=== PATIENT | female | born 1940 | race Caucasian/White ===

== ENCOUNTER → 2016-03-29 | Outpatient (CLI) | payer OTHER, MEDICARE ==
--- NOTE | 2016-03-29 12:04 | US ---
Ultrasound Venous Duplex/Doppler left Leg History: Pain and swelling. C 56.2, malignant ovary neoplasm, C56.1, acute embolism, C77.3 Findings: Ultrasound venous duplex and Doppler imaging of the common femoral vein, femoral vein, pop liteal vein, calf veins, greater saphenous vein origin, and contralateral common femoral vein demonst rates positive intraluminal thrombus involving the left peroneal and posterior tibial veins of the le ft calf. No additional thrombus in the popliteal, femoral, or common femoral veins. Impression: Positive deep venous thrombosis in the left calf peroneal and posterior tibial veins. Findings and recommendations discussed with Dr. Naheed Mattson's medical office receptionist at 1158 hour, to day. A Document Only message has been documented for Naheed Dominguez MD in the [employer] [facility] ult system on 03/29/2016 11:58, Message ID [id number].
== END ==
LOC: FIMAGING 10:59
PROVIDERS: ATTEND Internal Medicine Hematology & Oncology
DX: I82.4Z2 Acute embolism and thrombosis of unspecified deep veins of left distal lower extremity (principal); C56.1 Malignant neoplasm of right ovary; C56.2 Malignant neoplasm of left ovary; C77.3 Secondary and unspecified malignant neoplasm of axilla and upper limb lymph nodes

== ENCOUNTER → 2016-04-05 | Outpatient (CLI) | payer OTHER, MEDICARE ==
--- NOTE | 2016-04-05 16:34 | US ---
Bilateral Lower Extremity Deep Venous Duplex Doppler Ultrasound History: Bilateral lower extremity leg pain and swelling. Technique: Bilateral lower extremity deep venous system and veins of the proximal calf were interroga melissa with grayscale, color, and spectral Doppler imaging. Comparison to previous venous ultrasound on the left on March 29, 2016 and on the right from 2015. Findings: Right lower extremity: The right common femoral, and proximal to mid femoral veins normally compress on grayscale imaging. However, there is evidence of intraluminal thrombus with lack of compression in volving the distal right femoral vein extending into the right popliteal vein. The veins of the proxi mal calf have grossly normal flow. The visualized greater saphenous vein compresses normally without thrombus. Moderate subcutaneous edema is present within the right calf. Left lower extremity: The left common femoral vein, femoral vein, and popliteal vein compress normall y on grayscale imaging. There is lack of compression of the proximal left posterior tibial vein. Ther e is also suspicion of thrombus in the left peroneal veins. The greater saphenous vein is patent. No significant edema is seen in the soft tissues. Impression: 1. Persistent thrombus within the distal right femoral vein extending into the right popliteal vein w ith probable persistent involvement of the proximal calf veins. 2. Persistent thrombus suspected in proximal calf veins similar to the prior study.
== END ==
LOC: FIMAGING 15:29
PROVIDERS: ATTEND Internal Medicine Hematology & Oncology
DX: I82.431 Acute embolism and thrombosis of right popliteal vein (principal); M79.661 Pain in right lower leg; M79.662 Pain in left lower leg; Z86.718 Personal history of other venous thrombosis and embolism

== ENCOUNTER 2016-06-24 19:35 | Inpatient (IN) | payer OTHER ==
--- NOTE | 2016-06-24 19:53 | EDPHY ---
H & P Time Seen by Provider: 06/24/16 19:52 HPI/ROS: CHIEF COMPLAINT: Fever and lethargy HISTORY OF PRESENT ILLNESS: Patient has metastatic ovarian cancer and got her last chemotherapy on June 06. She has had decreased oral intake and this had IV fluids 3 times in the past 3 weeks including 2 L yesterday. She is brought in today because of increasing global weakness. She has trouble getting up and getting around. It is associated today with a high temperature. Not focal and not associated with headache or new weakness or numbness in extremities. REVIEW OF SYSTEMS: Eye: no change in vision ENT: no sore throat, mild left earache Cardiac: no chest pain or syncope Pulmonary: no cough or SOB Abdomen: no vomiting, diarrhea, abdominal pain Musculoskeletal: Pain in the left breast for which she takes pain medication. Skin: no rash Neuro: no headache Constitutional: Fever : no urinary symptoms A comprehensive 10 point review of systems is otherwise negative aside from elements mentioned in the history of present illness. PAST MEDICAL HISTORY: Includes metastatic ovarian cancer, "blood clot" per daughters, anemia Social history: Here with family including multiple daughters General Appearance: Alert and conversant, cooperative. Eyes: No scleral icterus. ENT, Mouth: Normal mucous membranes. Normal tympanic membranes. Red indurated lesion on external right ear which the patient says is not new. Respiratory: Normal respiratory effort, breath sounds equal, lungs are clear to auscultation. Cardiovascular: Regular rate and rhythm. Gastrointestinal: Abdomen is soft and non tender. Neurological: Alert and oriented x3. Normally conversant. Face symmetric, normal movement and sensation in all extremities. Skin: Patient has erythematous area over the left breast the 1 cm open wound inferiorly but no pus draining from the wound, no lymphangitis, does not appear warmer to the touch than the surrounding skin. Musculoskeletal: No peripheral edema and no joint swelling. Psychiatric: Not agitated. Emergency Department course/MDM: The patient presents with temperature 39.5degrees and chills in a patient who was just had chemotherapy recently. Plan for sepsis screening the, chest x-ray and urinalysis and blood cultures. 2044: Results discussed with patient and family. IV fluid bolus 30 mL/kilos and broad-spectrum antibiotics to include cefepime [address] Wang and vancomycin 1 g after discussion with Dr. Brown. Platelets low. 2049: EKG noted with inferior Q-waves, sinus rhythm, troponin added. 2100: Flu noted is negative, lactate not repeated since 1st one is less than 2. 2124: Not hypotensive after fluid bolus, cefepime infusing, does not have evidence of septic shock. Smoking Status: Never smoked Constitutional: Initial Vital Signs Temperature (C) 39.5 C H 06/24/16 19:38 Heart Rate 132 H 06/24/16 19:38 Respiratory Rate 18 06/24/16 19:38 Blood Pressure 115/63 06/24/16 19:38 O2 Sat (%) 94 06/24/16 19:38 O2 Delivery Mode Room Air Allergies/Adverse Reactions: No Known Allergies Allergy (Unverified 07/18/12 18:17) Medical Decision Making - Diagnostics EKG Interpretation: 12-lead EKG interpreted by me; official reading is in trace master. My interpretation is sinus rhythm with PVC, inferior Q-waves noted. Imaging: Imaging Impressions Chest X-Ray 06/24/16 20:06 Impression: 1. Small right pleural effusion, with associated atelectasis without definite evidence of pneumonia. 2. Increased peribronchial thickening, which could be related to bronchitis/ airways disease or mild fluid overload. 3. Mild left basilar atelectasis, with a probable trace effusion. Chest x-ray viewed independently with Jenna at 8:33 p.m.. Personal interpretation is no pneumonia. Differential Diagnosis: Differential considered including but not limited to meningitis, pneumonia, sepsis, UTI, cellulitis. Consult/Admit Bed Type: [facility] 2037, [facility] 2043 Critical Care Time: Critical care time spent by me, Dr. Erickson, exclusively with the care of this patient was 35 minutes, exclusive of PA or BUSINESS AND SERVICES INSTRUCTOR time and exclusive of separate procedures. The organ system at risk was infectious and I ordered IV fluids, antipyretics, multiple antibiotics, consultation with hospitalist and oncologist to stabilize the patient and prevent worsening of the patient's condition. - Data Points Laboratory Results: Laboratory Results 06/24/16 20:00 06/24/16 20:00 06/24/16 06/24/16 06/24/16 20:25 20:00 20:00 WBC RBC Hgb Hct MCV MCH MCHC RDW Plt Count MPV Neut % (Auto) Lymph % (Auto) [place] % (Auto) Eos % (Auto) Baso % (Auto) Nucleat RBC Rel Count Absolute Neuts (auto) Absolute Lymphs (auto) Absolute Monos (auto) Absolute Eos (auto) Absolute Basos (auto) Absolute Nucleated RBC Immature Gran % Seg Neutrophils % Band Neutrophils % Lymphocytes % Monocytes % Eosinophils % Basophils % Immature Gran # Absolute Seg Neuts Absolute Band Neuts Absolute Lymphocytes Absolute Monocytes Absolute Eosinophils Absolute Basophils Platelet Estimate Microcytic Cells Smear Review By PT INR APTT VBG Lactic Acid Sodium 134 mEq/L mEq/L (134-144) Potassium 3.7 mEq/L mEq/L (3.5-5.2) Chloride 106 mEq/L mEq/L (97-110) Carbon Dioxide 22 mEq/l mEq/l (22-31) Anion Gap 6 mEq/L L mEq/L (8-16) BUN 28 mg/dL H mg/dL (7-23) Creatinine 0.6 mg/dL mg/dL (0.6-1.0) Estimated GFR > 60 Glucose 86 mg/dL mg/dL (70-100) Calcium 8.1 mg/dL L mg/dL (8.5-10.4) Total Bilirubin 1.6 mg/dL H mg/dL (0.1-1.4) Troponin I < 0.012 ng/mL ng/mL (0-0.034) Influenza Typ A,B (DFA) NEGATIVE FOR FLU (NEGATIVE) 06/24/16 06/24/16 06/24/16 20:00 20:00 20:00 WBC 0.68 10^3/uL L* 10^3/uL (3.80-9.50) RBC 2.95 10^6/uL L 10^6/uL (4.18-5.33) Hgb 9.8 g/dL L g/dL (12.6-16.3) Hct 28.5 % L % (38.0-47.0) MCV 96.6 fL fL (81.5-99.8) MCH 33.2 pg pg (27.9-34.1) MCHC 34.4 g/dL g/dL (32.4-36.7) RDW 18.4 % H % (11.5-15.2) Plt Count 68 10^3/uL L 10^3/uL (150-400) MPV 11.7 fL fL (8.7-11.7) Neut % (Auto) Not Reported Lymph % (Auto) Not Reported [place] % (Auto) Not Reported Eos % (Auto) Not Reported Baso % (Auto) Not Reported Nucleat RBC Rel Count 0.0 % % (0.0-0.2) Absolute Neuts (auto) Not Reported Absolute Lymphs (auto) Not Reported Absolute Monos (auto) Not Reported Absolute Eos (auto) Not Reported Absolute Basos (auto) Not Reported Absolute Nucleated RBC 0.00 10^3/uL 10^3/uL (0-0.01) Immature Gran % Not Reported Seg Neutrophils % 62 % % Band Neutrophils % 10 % % Lymphocytes % 18 % % Monocytes % 6 % % Eosinophils % 2 % % Basophils % 2 % % Immature Gran # Not Reported Absolute Seg Neuts 0.42 10^/uL L 10^/uL (1.70-6.50) Absolute Band Neuts 0.07 10^3/uL 10^3/uL (0.00-0.70) Absolute Lymphocytes 0.12 10^3/uL L 10^3/uL (1.00-3.00) Absolute Monocytes 0.04 10^3/uL L 10^3/uL (0.30-0.80) Absolute Eosinophils 0.01 10^3/uL L 10^3/uL (0.03-0.40) Absolute Basophils 0.01 10^3/uL L 10^3/uL (0.02-0.10) Platelet Estimate DECREASED L (ADEQ) Microcytic Cells 1+ H Smear Review By Pending PT 14.3 SEC SEC (12.0-15.0) INR 1.12 (0.83-1.16) APTT 28.6 SEC SEC (23.0-38.0) VBG Lactic Acid 1.3 mmol/L mmol/L (0.7-2.1) Sodium Potassium Chloride Carbon Dioxide Anion Gap BUN Creatinine Estimated GFR Glucose Calcium Total Bilirubin Troponin I Influenza Typ A,B (DFA) Medications Given: Discontinued Medications Acetaminophen (Tylenol) 350 mg PO EDNOW ONE Stop: 06/24/16 20:20 Last Admin: 06/24/16 20:24 Dose: 350 mg Sodium Chloride (Ns) 1,000 mls @ 0 mls/hr IV ONCE ONE PRN Reason: Wide Open Stop: 06/24/16 20:22 Last Admin: 06/24/16 20:05 Dose: 1,000 mls Cefepime HCl 2 gm/ Dextrose 100 mls @ 200 mls/hr IV EDNOW ONE PRN Reason: Protocol Stop: 06/24/16 21:13 Last Admin: 06/24/16 21:17 Dose: 100 mls Sodium Chloride (Ns) 1,600 mls @ 3,200 mls/hr 30 ml/kg infuse over 30 min ( 1600 ml) IV EDNOW ONE Stop: 06/24/16 21:13 Last Admin: 06/24/16 21:18 Dose: 1,600 mls Departure - Departure Disposition: [facility] Inpatient Acute Clinical Impression: Fever and neutropenia Condition: Serious
[2016-06-24] MEDS ORDERED: ACETAMINOPHEN 500 MG TAB PO ONE (20:19)
[2016-06-24] MEDS ORDERED: NS 1,000 ML IV ONE (20:21)
[2016-06-24] MEDS ORDERED: ACETAMINOPHEN 325 MG TAB ONE (20:21)
[2016-06-24 20:24] LABS: ADD DIFF? YES; ADD MORPH? NO; ATYPICAL LYMPHOCYTE FLAG 0 (0-99); FRAGMENT RBC FLAG 20 (0-99); HEMATOCRIT 28.5 % (38.0-47.0); HEMOGLOBIN 9.8 g/dL (12.6-16.3); LEFT SHIFT FLG 90 (0-99); LIPEMIA HEMOLYSIS FLAG 90 (0-99); MEAN CELL HEMOGLOBIN 33.2 pg (27.9-34.1); MEAN CELL HEMOGLOBIN CONCENTR. 34.4 g/dL (32.4-36.7); MEAN CELL VOLUME 96.6 fL (81.5-99.8); MEAN PLATELET VOLUME 11.7 fL (8.7-11.7); PLATELET CLUMPS FLAG 20 (0-99); PLATELET COUNT 68 10^3/uL (150-400); RED BLOOD CELL COUNT 2.95 10^6/uL (4.18-5.33); RED CELL DISTRIBUTION WIDTH 18.4 % (11.5-15.2)
[2016-06-24 20:29] LABS: ADD SCAN? NO
[2016-06-24 20:31] LABS: INR 1.12 (0.83-1.16); PROTIME(PATIENT) 14.3 SEC (12.0-15.0)
[2016-06-24 20:32] LABS: APTT 28.6 SEC (23.0-38.0)
[2016-06-24 20:41] LABS: ANION GAP 6 mEq/L (8-16); BILIRUBIN,TOTAL 1.6 mg/dL (0.1-1.4); CALCIUM 8.1 mg/dL (8.5-10.4); CARBON DIOXIDE 22 mEq/l (22-31); CHLORIDE 106 mEq/L (97-110); CREATININE 0.6 mg/dL (0.6-1.0); GLOMERULAR FILTRATION RATE > 60; GLUCOSE 86 mg/dL (70-100); POTASSIUM 3.7 mEq/L (3.5-5.2); SODIUM 134 mEq/L (134-144)
[2016-06-24] MEDS ORDERED: NS 1,600 ML IV ONE (20:44)
[2016-06-24] MEDS ORDERED: CEFEPIME HCL 2 GM in D5W 100 ML IV ONE (20:44)
[2016-06-24] MEDS ORDERED: VANCOMYCIN HCL/NORMAL SALINE 250 ML IV ONE (20:45)
--- NOTE | 2016-06-24 20:49 | CPEKG ---
Heart Rate: 93 RR Interval: 645 P-R Interval: 128 QRSD Interval: 86 QT Interval: 388 QTC Interval: 483 P [place]: 27 QRS [place]: -40 T Wave [place]: 102 EKG Severity - ABNORMAL ECG - EKG Impression: SINUS RHYTHM EKG Impression: VENTRICULAR PREMATURE COMPLEX EKG Impression: INFERIOR INFARCT, OLD EKG Impression: LATERAL LEADS ARE ALSO INVOLVED Electronically Signed By: Marin Erickson 24-Jun-2016 20:49:55
[2016-06-24 21:18] LABS: MICROCYTES 1+; PLATELET ESTIMATE DECREASED (ADEQ)
[2016-06-24] MEDS ORDERED: ONDANSETRON 4 MG/2 ML VIAL IVP PRN (22:30)
[2016-06-24] MEDS ORDERED: ONDANSETRON DISINTEGRATING 4 MG TAB PO PRN (22:30)
[2016-06-24 23:09] LABS: ALBUMIN 2.7 g/dL (3.5-5.0); BILIRUBIN,TOTAL 1.7 mg/dL (0.1-1.4); BILIRUBIN-CONJUGATED 0.8 mg/dL (0.0-0.5); BILIRUBIN-UNCONJUGATED 0.9 mg/dL (0.0-1.1); TOTAL PROTEIN 5.2 g/dL (6.3-8.2)
[2016-06-24] MEDS: GABAPENTIN 300 MG CAP PO SCH (23:35)
[2016-06-24] MEDS: MIRTAZAPINE 15 MG TAB PO SCH (23:35)
[2016-06-24] MEDS: WARFARIN SODIUM 2.5 MG TAB PO SCH (23:36)
--- NOTE | 2016-06-24 23:44 | PDGENHP ---
History and Physical - Chief Complaint generalized weakness - History of Present Illness Patient is a 75 year old female with metastatic ovarian cancer (currently undergoing chemo, last session on 06/06), history DVT on Coumadin who presents to the ED with complaint of generalized weakness. Patient states for the past 3 or 4 days she has felt decreased appetite, decreased oral intake and generalized fatigue. She denies any localizing symptoms, denies headache, dizziness, chest pain, cough, congestion, and nausea, vomiting, abdominal pain or diarrhea. She does have a left breast skin lesion / ulceration that has been unchanged, is not significantly more painful or erythematous than baseline. She was initiated on nystatin swish and swallow for oral candidiasis about 1 week ago, but denies any other new medications or recent antibiotic use. She has received IV fluid hydration in the outpatient setting due to On arrival to the ED, patient was noted to be significantly febrile (39.5C) and tachycardic, but with stable BP and oxygenation. Labs revealed neutropenia. CXR did not show obvious infection. Patient was cultured, initiated on broad spectrum antibiotics and admitted to the hospitalist service for further management. History Information - Allergies/Home Medication List Allergies/Adverse Reactions: No Known Allergies Allergy (Unverified 07/18/12 18:17) Home Medications: Gabapentin [Neurontin 300 MG (*)] 600 mg PO DAILY 06/24/16 [Last Taken 06/24/16] Gabapentin [Neurontin 300 MG (*)] 900 mg PO HS 06/24/16 [Last Taken 06/23/16] Hydrocodone/Acetaminophen [Lortab 5-325 mg Tablet] 1 each PO Q4 PRN 06/24/16 [ Last Taken 06/23/16] MIRTAZAPINE [Remeron 7.5 mg] 7.5 mg PO HS 06/24/16 [Last Taken 06/23/16] Mupirocin Calcium [Mupirocin] 1 kerry TP DAILY 06/24/16 [Last Taken Unknown] Nystatin Susp [Mycostatin Oral Liquid] 5 ml PO BID 06/24/16 [Last Taken 14:00] Warfarin Sodium [Coumadin 2.5MG (*)] 1.25 mg PO MWF@209906/24/16 [Last Taken ] Warfarin Sodium [Coumadin 2.5MG (*)] 2.5 mg PO SUTUTHSA@06/24/17 [Last Taken 06/22/16] I have personally reviewed and updated: family history, medical history, social history, surgical history - Past Medical History Additional medical history: recurrent ovarian cancer with L breast met - Surgical History Additional surgical history: XAVI with BSO. Appendectomy - Family History Positive for: cancer (in sisters) - Social History Smoking Status: Never smoked Alcohol Use: None Drug Use: None Additional social history: Patient lives alone, is independent in ADLs. Review of Systems ROS: 10pt was reviewed & negative except for what was stated in HPI & below Physical Exam Temp Pulse Resp BP Pulse Ox 37.2 C 87 16 108/50 L 90 L 06/24/16 21:50 06/24/16 21:50 06/24/16 21:50 06/24/16 21:50 06/24/16 21:50 Constitutional: not in pain, chronically ill appearing Eyes: PERRL, anicteric sclera, EOMI Ears, Nose, Mouth, Throat: hearing normal, ears appear normal, oral thrush, dry mucous membranes Cardiovascular: regular rate and rhythym, no murmur, rub, or gallop, edema (RLE) , No JVD Peripheral Pulses: 2+: dorsalis-pedis (R), dorsalis-pedis (L) Respiratory: no respiratory distress, no rales or rhonchi, clear to auscultation Gastrointestinal: normoactive bowel sounds, soft, non-tender abdomen, no palpable masses, No guarding, No rebound, No distension Genitourinary: no bladder fullness, no bladder tenderness Skin: warm, normal color, no fluctuance, erythema (along L chest wall), other ( Mediport in R chest wall, nonerythematous), No mottled Musculoskeletal: full muscle strength, no muscle tenderness, normal joint ROM, no joint effusions Neurologic: AAOx3, sensation intact bilaterally, CN II-XII Intact, No weakness, No numbness, No facial droop Psychiatric: interacting appropriately, not anxious, not encephalopathic, thought process linear Lab Data & Imaging Review 06/24/16 20:00 06/24/16 20:00 WBC 0.68 10^3/uL (3.80-9.50) L* 06/24/16 20:00 RBC 2.95 10^6/uL (4.18-5.33) L 06/24/16 20:00 Hgb 9.8 g/dL (12.6-16.3) L 06/24/16 20:00 Hct 28.5 % (38.0-47.0) L 06/24/16 20:00 MCV 96.6 fL (81.5-99.8) 06/24/16 20:00 MCH 33.2 pg (27.9-34.1) 06/24/16 20:00 MCHC 34.4 g/dL (32.4-36.7) 06/24/16 20:00 RDW 18.4 % (11.5-15.2) H 06/24/16 20:00 Plt Count 68 10^3/uL (150-400) L 06/24/16 20:00 MPV 11.7 fL (8.7-11.7) 06/24/16 20:00 Neut % (Auto) Not Reported 06/24/16 20:00 Lymph % (Auto) Not Reported 06/24/16 20:00 [place] % (Auto) Not Reported 06/24/16 20:00 Eos % (Auto) Not Reported 06/24/16 20:00 Baso % (Auto) Not Reported 06/24/16 20:00 Nucleat RBC Rel Count 0.0 % (0.0-0.2) 06/24/16 20:00 Absolute Neuts (auto) Not Reported 06/24/16 20:00 Absolute Lymphs (auto) Not Reported 06/24/16 20:00 Absolute Monos (auto) Not Reported 06/24/16 20:00 Absolute Eos (auto) Not Reported 06/24/16 20:00 Absolute Basos (auto) Not Reported 06/24/16 20:00 Absolute Nucleated RBC 0.00 10^3/uL (0-0.01) 06/24/16 20:00 Immature Gran % Not Reported 06/24/16 20:00 Seg Neutrophils % 62 % 06/24/16 20:00 Band Neutrophils % 10 % 06/24/16 20:00 Lymphocytes % 18 % 06/24/16 20:00 Monocytes % 6 % 06/24/16 20:00 Eosinophils % 2 % 06/24/16 20:00 Basophils % 2 % 06/24/16 20:00 Immature Gran # Not Reported 06/24/16 20:00 Absolute Seg Neuts 0.42 10^/uL (1.70-6.50) L 06/24/16 20:00 Absolute Band Neuts 0.07 10^3/uL (0.00-0.70) 06/24/16 20:00 Absolute Lymphocytes 0.12 10^3/uL (1.00-3.00) L 06/24/16 20:00 Absolute Monocytes 0.04 10^3/uL (0.30-0.80) L 06/24/16 20:00 Absolute Eosinophils 0.01 10^3/uL (0.03-0.40) L 06/24/16 20:00 Absolute Basophils 0.01 10^3/uL (0.02-0.10) L 06/24/16 20:00 Platelet Estimate DECREASED (ADEQ) L 06/24/16 20:00 Microcytic Cells 1+ H 06/24/16 20:00 PT 14.3 SEC (12.0-15.0) 06/24/16 20:00 INR 1.12 (0.83-1.16) 06/24/16 20:00 APTT 28.6 SEC (23.0-38.0) 06/24/16 20:00 VBG Lactic Acid 1.3 mmol/L (0.7-2.1) 06/24/16 20:00 Sodium 134 mEq/L (134-144) 06/24/16 20:00 Potassium 3.7 mEq/L (3.5-5.2) 06/24/16 20:00 Chloride 106 mEq/L (97-110) 06/24/16 20:00 Carbon Dioxide 22 mEq/l (22-31) 06/24/16 20:00 Anion Gap 6 mEq/L (8-16) L 06/24/16 20:00 BUN 28 mg/dL (7-23) H 06/24/16 20:00 Creatinine 0.6 mg/dL (0.6-1.0) 06/24/16 20:00 Estimated GFR > 60 06/24/16 20:00 Glucose 86 mg/dL (70-100) 06/24/16 20:00 Calcium 8.1 mg/dL (8.5-10.4) L 06/24/16 20:00 Total Bilirubin 1.7 mg/dL (0.1-1.4) H 06/24/16 20:00 Conjugated Bilirubin 0.8 mg/dL (0.0-0.5) H 06/24/16 20:00 Unconjugated Bilirubin 0.9 mg/dL (0.0-1.1) 06/24/16 20:00 AST 46 IU/L (14-46) 06/24/16 20:00 ALT 41 IU/L (9-52) 06/24/16 20:00 Alkaline Phosphatase 56 IU/L (38-126) 06/24/16 20:00 Troponin I < 0.012 ng/mL (0-0.034) 06/24/16 20:00 Total Protein 5.2 g/dL (6.3-8.2) L 06/24/16 20:00 Albumin 2.7 g/dL (3.5-5.0) L 06/24/16 20:00 Lipase 168.0 IU/L (23-300) 06/24/16 20:00 Influenza Typ A,B (DFA) NEGATIVE FOR FLU (NEGATIVE) 06/24/16 20:25 Visualized and Interpreted Chest x-ray results: Yes Chest X-Ray results: no infiltrate Visualized and Interpreted EKG results: Yes EKG Interpretation: Positive for: normal sinsus rhythm (with inferior Q waves) Assessment & Plan Assessment: Patient is a 75-year-old female with history of metastatic ovarian cancer currently undergoing chemotherapy who presents to the ED with generalized fatigue, decreased p.o. intake over the past week. ED evaluation reveals fever and neutropenia without obvious source of infection. Plan: # neutropenic fever On arrival to the ED, patient is febrile, tachycardic and labs reveal neutropenia (new when compared to 06/16/16 labs), consistent with sepsis. Lactic is normal, but given elevated bilirubin, meets criteria for severe sepsis. Source of infection is not obvious on presentation, as CXR does not reveal obvious infiltrate, Flu swab is negative, UA is pending. Chest wall wound is a possible source. Will obtain a wound consult, consult ID and continue broad spectrum antibiotics. # metastatic ovarian cancer; pancytopenia S/p cycle 2 of chemotherapy on 06/06, with resulting pancytopenia on presentation today. Will continue to monitor cell counts. # history of RLE DVT DVT diagnosed in 03/2016, on coumadin, however, INR is subtherapeutic today. Will resume coumadin and monitor INR. # dispo: admit to inpatient service for likely > 2 [place] stay # gen: Regular diet DVT ppx: on warfarn DNR
[2016-06-25] MEDS: CEFEPIME HCL 2 GM in D5W 100 ML IV SCH ×3 (05:46→20:38)
[2016-06-25 05:58] LABS: ADD MORPH? NO; ATYPICAL LYMPHOCYTE FLAG 0 (0-99); FRAGMENT RBC FLAG 20 (0-99); HEMATOCRIT 27.4 % (38.0-47.0); LIPEMIA HEMOLYSIS FLAG 80 (0-99); MEAN CELL HEMOGLOBIN 33.3 pg (27.9-34.1); MEAN CELL HEMOGLOBIN CONCENTR. 32.8 g/dL (32.4-36.7); MEAN CELL VOLUME 101.5 fL (81.5-99.8); MEAN PLATELET VOLUME 9.2 fL (8.7-11.7); PLATELET CLUMPS FLAG 10 (0-99); RED CELL DISTRIBUTION WIDTH 18.5 % (11.5-15.2)
[2016-06-25 06:03] LABS: LEFT SHIFT FLG 110 (0-99); PLATELET COUNT 43 10^3/uL (150-400)
[2016-06-25 06:07] LABS: INR 1.17 (0.83-1.16); PROTIME(PATIENT) 14.9 SEC (12.0-15.0)
[2016-06-25 06:08] LABS: APTT 33.6 SEC (23.0-38.0)
[2016-06-25 06:10] LABS: ADD SCAN? NO
[2016-06-25 06:12] LABS: % IMMATURE GRANULYOCYTES 1.9 % (0.0-1.1); ABSOLUTE IMMATURE GRANULOCYTES 0.01 10^3/uL (0.00-0.10)
[2016-06-25 06:13] LABS: ALANINE AMINOTRANSFERASE 39 IU/L (9-52); ALBUMIN 2.4 g/dL (3.5-5.0); ALKALINE PHOSPHATASE 49 IU/L (38-126); ANION GAP 5 mEq/L (8-16); ASPARTATE AMINOTRANSFERASE 38 IU/L (14-46); BILIRUBIN,TOTAL 1.2 mg/dL (0.1-1.4); CALCIUM 7.2 mg/dL (8.5-10.4); CARBON DIOXIDE 20 mEq/l (22-31); CHLORIDE 114 mEq/L (97-110); CREATININE 0.5 mg/dL (0.6-1.0); GLOMERULAR FILTRATION RATE > 60; GLUCOSE 86 mg/dL (70-100); MAGNESIUM 1.8 mg/dL (1.6-2.3); POTASSIUM 3.7 mEq/L (3.5-5.2); SODIUM 139 mEq/L (134-144); TOTAL PROTEIN 4.6 g/dL (6.3-8.2)
[2016-06-25 06:16] LABS: ADD DIFF? NO
[2016-06-25 06:19] LABS: COLOR YELLOW; LEUKOCYTE ESTERASE,URINE NEGATIVE (NEGATIVE); NITRITE,URINE NEGATIVE (NEGATIVE)
[2016-06-25 06:25] LABS: TROPONIN I < 0.012 ng/mL (0-0.034)
[2016-06-25 06:41] LABS: PLATELET ESTIMATE DECREASED (ADEQ)
[2016-06-25] MEDS: HYDROCODONE/APAP 5/325 TAB PO PRN ×4 (07:50→20:32)
[2016-06-25] MEDS ORDERED: ENOXAPARIN 40 MG/0.4 ML SYR SC SCH (09:00)
[2016-06-25] MEDS ORDERED: MUPIROCIN CALCIUM TP SCH (09:00)
[2016-06-25] MEDS: GABAPENTIN 300 MG CAP PO SCH ×2 (09:02→20:15)
[2016-06-25] MEDS: NYSTATIN SUSP 500000 UNIT/5 ML UDCUP PO SCH ×2 (09:02→20:16)
--- NOTE | 2016-06-25 12:13 | GHP ---
[f rep st] HISTORY AND PHYSICAL DATE OF ADMISSION: 06/24/2016 REFERRING PHYSICIAN: Jose Daniel Swanson MD Outpatient oncologist is Dr. Naheed Dominguez. REASON FOR ADMISSION: Febrile neutropenia. 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 She is currently receiving therapy with Doxil given monthly. She received doses i n April and May, which she tolerated well. For the third cycle, given on June 09, 2016, the d ose was increased somewhat to 80 mg. She had some difficulty with this and has developed mouth sore s, weakness and inability to tolerate p.o. Yesterday, she was so weak that she could not get out of bed or really drink anything. On my advice, the family brought her to the emergency department. S he was febrile to 39.5 and had a neutrophil count of 420. She was admitted to the hospital and give n hydration and cefepime. This morning she is feeling better, though her mouth is still hurting her. PAST MEDICAL HISTORY: Deep vein thrombosis, on Coumadin. CURRENT MEDICATIONS: Include cefepime, gabapentin, Remeron, nystatin, vancomycin and Coumadin. ALLERGIES: She has no known drug allergies. FAMILY HISTORY: Noncontributory. SOCIAL HISTORY: She lives with her family. She does not smoke cigarettes or drink alcohol. REVIEW OF SYSTEMS: Aside from pertinent positives noted in the HPI, a 14-point review of systems is negative. PHYSICAL EXAMINATION: VITAL SIGNS: T max 39.5, T current 35.9, blood pressure 124/78, heart rate 5 8, oxygen saturation 93% on room air. GENERAL: She was in no acute distress. SCLERAE: Anicteric. OROPHARYNX: Clear. NECK: Supple, without lymphadenopathy. LUNGS: Crackles at the right base. CARDIAC: Regular rate and rhythm. No murmurs, gallops, or rubs. ABDOMEN: Normal active bowel so unds, nontender, nondistended. EXTREMITIES: Without edema. 2+ pulses. NEUROLOGICAL: She is aler t and oriented x3. SKIN: No petechiae or purpura. LABORATORY DATA: White count 0.53 with a neutrophil count of 350, hemoglobin 9, platelets of 43. IMAGING: A chest x-ray showed a small right-sided pleural effusion. IMPRESSION: 1. This is a 75-year-old woman with ovarian cancer, currently receiving Doxil chemotherapy, who pre sents with febrile neutropenia. She has significantly improved after IV hydration and antibiotics. This is likely a GI source and she is well covered for gram-negative infections. 2. She has mucositis due to the chemotherapy as well. 3. Her previous scan did not show significant intraabdominal disease, so I suspect that most of her symptoms are due to the chemotherapy rather than the effect of her cancer. RECOMMENDATIONS: 1. Continue cefepime and follow blood cultures. 2. Magic Mouthwash to help with mucositis pain. 3. Her white count should recover within the next several days, at which time her mucositis should improve as well. 4. I will hold the Coumadin or other DVT prophylaxis, given that her platelet count is low. 5. We will continue to follow this patient with you in the hospital. /[id number]/MODL
--- NOTE | 2016-06-25 12:19 | WOCRNPDOC ---
[facility] Advanced Assessment Note - Skin Integrity Problem, Advanced Assess Left Chest Dressing Type: Allevyn Life Dressing Description: Clean/Dry, Intact Exudate Amount: Scant Exudate Color: Reddish/Yellow Exudate Characteristic(s): Serosanguinous Integumentary Issue Intervention: Visualized Under Dressing Kenia Wound Tissue: Erythema, Xerotic Kenia Wound Swelling: Mild Wound Bed Color: Red, Yellow Site Odor: Slight Site Measurement - Head-to-Toe Length X Width X Depth (cm): [id number] Skin Integrity Problem Comment: Area of mottled, xerotic, red friable tissue noted across patient's L chest r/t metastasis. There is a [id number] area on the distal aspect of this larger area that is slough-filled. Per patient report, she has been managing this wound at home w/ Mupirocin cream and a non-adherent pad. Nursing placed an Allevyn Life bordered foam dressing, which patient says she likes better. There is an existing order for the Mupirocin to be applied while she is here, which can be used in conjuction w/ an Allevyn. When asked if she had been seen specifically for this wound in the outpatient setting, patient said she was "supposed to" have "someone come to my house," but that has not occurred. [facility] d/c, per oly from Dr. Dominguez who is her oncologist.
[2016-06-25] MEDS: MBX SOLN 30 ML BOTTLE PO PRN ×2 (12:48→20:17)
[2016-06-25] MEDS: NS 1,000 ML IV SCH ×2 (14:39→20:36)
[2016-06-25] MEDS: ACETAMINOPHEN 325 MG TAB PO PRN (14:40)
--- NOTE | 2016-06-25 14:45 | HOSPPROG ---
Hospitalist Progress Note Assessment/Plan: DIAGNOSES: -Neutropenic fever -Gram-positive cocci growing in a single blood culture bottle, contaminant versus is actual infection will to be determined -Pancytopenia from cancer and chemotherapy -Metastatic ovarian cancer PLANS: -continue empiric cefepime and vancomycin for now -Continue to monitor results of cultures -Follow closely for any specific clinical signs or symptoms of a localized or other defined infection -Nutrition support -Wound care for her left chest wall wound SUBJECTIVE: exhausted, very weak No shortness of breath cough or other respiratory symptoms No localized pain or discomfort No appetite at all but no nausea or vomiting No diarrhea No mucosal symptoms OBJECTIVE Vitals reviewed: stable blood pressure pulse respirations, temperature 38 degrees now Exam: alert oriented, appears weak and fatigued skin warm dry color ok; the erythema on left chest wall is unchanged from yesterday resps not labored lungs clear BSs heart regular abd soft nondistended nontender, bowel sounds present limbs warm, no edema iv mediport site ok blood cultures with 1/4 bottles showing gram-positive cocci at this time Objective: Vital Signs Temp Pulse Resp BP Pulse Ox 38.0 C 86 18 138/58 H 97 06/25/16 14:32 06/25/16 14:32 06/25/16 14:32 06/25/16 14:32 06/25/16 14:32 Laboratory Results 06/25/16 05:36 06/25/16 05:36 06/24/16 06/25/16 06/26/16 06:59 06:59 06:59 Intake Total 3050 Output Total 450 250 Balance 2600 -250 PT 14.9 SEC (12.0-15.0) 06/25/16 05:36 INR 1.17 (0.83-1.16) H 06/25/16 05:36 ICD10 Worksheet Patient Problems: Problems Problem Status Onset Fever and neutropenia Acute
[2016-06-25] MEDS: MUPIROCIN 2% 22 GM OINT TP SCH (16:57)
[2016-06-25] MEDS: MIRTAZAPINE 15 MG TAB PO SCH (20:15)
[2016-06-25] MEDS ORDERED: VANCOMYCIN HCL/NORMAL SALINE 250 ML IV SCH (22:00)
[2016-06-26 05:29] LABS: ADD MORPH? NO; ATYPICAL LYMPHOCYTE FLAG 0 (0-99); FRAGMENT RBC FLAG 20 (0-99); HEMOGLOBIN 8.4 g/dL (12.6-16.3); LIPEMIA HEMOLYSIS FLAG 80 (0-99); MEAN CELL HEMOGLOBIN 32.3 pg (27.9-34.1); MEAN CELL HEMOGLOBIN CONCENTR. 32.3 g/dL (32.4-36.7); MEAN PLATELET VOLUME 13.5 fL (8.7-11.7); PLATELET CLUMPS FLAG 20 (0-99); PLATELET COUNT 57 10^3/uL (150-400); RED CELL DISTRIBUTION WIDTH 18.6 % (11.5-15.2)
[2016-06-26 05:33] LABS: LEFT SHIFT FLG 180 (0-99)
[2016-06-26 05:36] LABS: ADD SCAN? NO
[2016-06-26 05:40] LABS: ADD DIFF? NO
[2016-06-26] MEDS: CEFEPIME HCL 2 GM in D5W 100 ML IV SCH ×3 (05:42→21:17)
[2016-06-26] MEDS: MBX SOLN 30 ML BOTTLE PO PRN ×2 (05:45→20:53)
[2016-06-26 05:52] LABS: ANION GAP 4 mEq/L (8-16); CARBON DIOXIDE 20 mEq/l (22-31); CHLORIDE 114 mEq/L (97-110); CREATININE 0.5 mg/dL (0.6-1.0); GLOMERULAR FILTRATION RATE > 60; GLUCOSE 83 mg/dL (70-100); POTASSIUM 3.3 mEq/L (3.5-5.2); SODIUM 138 mEq/L (134-144)
[2016-06-26] MEDS: GABAPENTIN 300 MG CAP PO SCH ×2 (09:07→20:53)
[2016-06-26] MEDS: HYDROCODONE/APAP 5/325 TAB PO PRN ×3 (09:07→18:33)
[2016-06-26] MEDS: NYSTATIN SUSP 500000 UNIT/5 ML UDCUP PO SCH ×2 (09:07→22:49)
[2016-06-26] MEDS: MUPIROCIN 2% 22 GM OINT TP SCH (09:08)
[2016-06-26] MEDS ORDERED: D10W 1,000 ML IV PRN (12:32)
--- NOTE | 2016-06-26 12:42 | SOAPPROG ---
SOAP Progress Note Assessment/Plan: Assessment: 1. ovarian ca 2. neutropenic fever 3. mucositis 4. staph sepsis 5. chest wall wound 6. protein calorie malnutrition 7. history dvt Plan: continue cefepime,vanco.Start tpn, I suspect it may be some time before mucositis resolves. Start lovenox tomorrow if plts continue to improve. Will ask ID to see. Start Granix to help wbc recovery 06/26/16 12:37 Subjective: feels a bit better than yesterday, mouth sore Objective: Vital Signs Temp Pulse Resp BP Pulse Ox 98.7 F 91 21 H 110/58 L 93 06/26/16 08:00 06/26/16 08:00 06/26/16 08:00 06/26/16 08:00 06/26/16 08:00 Laboratory Results 06/26/16 05:00 06/26/16 05:00 06/25/16 06/26/16 06/27/16 05:59 05:59 05:59 Intake Total 3050 3455 Output Total 450 1000 Balance 2600 2455 PT 14.9 SEC (12.0-15.0) 06/25/16 05:36 INR 1.17 (0.83-1.16) H 06/25/16 05:36 Physical Exam - Physical Exam General Appearance: mild distress Respiratory: crackles (few crackles at bases) Abdomen: normal bowel sounds, non-tender Skin: other (port r chest ok, wound l chest wall) ICD10 Worksheet Patient Problems: Problems Problem Status Onset Fever and neutropenia Acute
[2016-06-26] MEDS: NS 1,000 ML IV SCH (13:10)
[2016-06-26 14:25] LABS: ADD MORPH? NO; ATYPICAL LYMPHOCYTE FLAG 0 (0-99); FRAGMENT RBC FLAG 20 (0-99); HEMATOCRIT 24.2 % (38.0-47.0); HEMOGLOBIN 8.1 g/dL (12.6-16.3); LIPEMIA HEMOLYSIS FLAG 80 (0-99); MEAN CELL HEMOGLOBIN 33.8 pg (27.9-34.1); MEAN CELL HEMOGLOBIN CONCENTR. 33.5 g/dL (32.4-36.7); MEAN CELL VOLUME 100.8 fL (81.5-99.8); MEAN PLATELET VOLUME 13.3 fL (8.7-11.7); PLATELET CLUMPS FLAG 0 (0-99); PLATELET COUNT 52 10^3/uL (150-400); RED CELL DISTRIBUTION WIDTH 18.6 % (11.5-15.2)
[2016-06-26] MEDS: FILGRASTIM-SNDZ 300 MCG/0.5 ML SYR SC SCH (14:27)
[2016-06-26 14:31] LABS: INR 1.59 (0.83-1.16)
[2016-06-26 14:32] LABS: APTT 38.1 SEC (23.0-38.0)
[2016-06-26 14:33] LABS: LEFT SHIFT FLG 300 (0-99)
[2016-06-26 14:37] LABS: ADD SCAN? NO
[2016-06-26] MEDS: POTASSIUM Cl (KCl) 100 ML IV SCH ×3 (14:45→17:04)
[2016-06-26 14:47] LABS: ADD DIFF? NO
[2016-06-26 16:21] LABS: ALANINE AMINOTRANSFERASE 29 IU/L (9-52); ALKALINE PHOSPHATASE 42 IU/L (38-126); ANION GAP 6 mEq/L (8-16); ASPARTATE AMINOTRANSFERASE 37 IU/L (14-46); CARBON DIOXIDE 19 mEq/l (22-31); CHLORIDE 111 mEq/L (97-110); CREATININE 0.5 mg/dL (0.6-1.0); GLOMERULAR FILTRATION RATE > 60; GLUCOSE 90 mg/dL (70-100); MAGNESIUM 1.6 mg/dL (1.6-2.3); POTASSIUM 3.3 mEq/L (3.5-5.2); SODIUM 136 mEq/L (134-144); TRIGLYCERIDE 124 mg/dL (35-135)
--- NOTE | 2016-06-26 16:36 | HOSPPROG ---
Hospitalist Progress Note Assessment/Plan: DIAGNOSES: -Neutropenic fever -Coag Neg Staph growing in both sets of blood cultures (both drawn thru port); she has a port and an erythematous lesion on chest wall so possible they are real pathogens -increasing rales RLL, ? infectious vs atelectasis -painful oral stomatitis, hungry but unable to eat; malnutrition worsening -Pancytopenia from cancer and chemotherapy -Metastatic ovarian cancer PLANS: -I reviewed in detail with Munira Mckeon and Ryder today -continue empiric cefepime and vancomycin for now -have lab try to fully ID all the gram +'s in blood cxs, determine if they are the same bug, and get repeat blood cxs including a peripheral; from this data along w her clincal coursewe will need to determine if the mediport should be removed -will get CXR to evaluate R>L LL rales, ? pneumonia vs atelectasis or other -Follow closely for any specific clinical signs or symptoms of a localized or other defined infection -Nutrition support: TPN planned -continue oral care for stomatitis -Wound care for her left chest wall wound SUBJECTIVE: somewhat better energy today no pain no cough still w severe oral pain unable to eat even bland soft foods OBJECTIVE Vitals reviewed: no fever today, otherwise stable Exam: alert oriented, appears weak and fatigued skin warm dry color ok; the erythema on left chest wall is unchanged from yesterday resps not labored lungs clear BSs heart regular abd soft nondistended nontender, bowel sounds present limbs warm, no edema iv mediport site ok blood cultures with both sets growing coag neg staph at this time Objective: Vital Signs Temp Pulse Resp BP Pulse Ox 36.8 C 75 18 114/60 95 06/26/16 14:32 06/26/16 14:32 06/26/16 14:32 06/26/16 14:32 06/26/16 14:32 Laboratory Results 06/26/16 14:00 06/25/16 06/26/16 06/27/16 06:59 06:59 06:59 Intake Total 3050 3455 Output Total 450 1000 Balance 2600 2455 PT 19.0 SEC (12.0-15.0) H 06/26/16 14:00 INR 1.59 (0.83-1.16) H 06/26/16 14:00 ICD10 Worksheet Patient Problems: Problems Problem Status Onset Fever and neutropenia Acute
--- NOTE | 2016-06-26 19:26 | GCON ---
[f rep st] CONSULTATION INFECTIOUS DISEASE INPATIENT CONSULTATION REFERRING PHYSICIAN: Moris Mckeon MD REASON FOR CONSULTATION: Neutropenic fever with bacteremia. HISTORY OF PRESENT ILLNESS: The patient is a 75-year-old female with known metastatic ovarian cance r who presented to [facility] through the emergency room on 06/24/2016. The patient c omplained of fever and weakness. The patient has a washoe resistant ovarian malignancy and has be en currently receiving chemotherapy with Doxil monthly. The patient had doses in the beginning of and the beginning of April which were well tolerated. However, the most recent monthly dose given on June 09 was increased and patient developed increasing side effects, including mouth sore s and weakness. The patient was told to go to the emergency room for dehydration. She was found to be febrile to 39.5. She was also found to be neutropenic. The patient was admitted and started on cefepime 2 g IV q.8 hours. The patient was also started on vancomycin 1 g IV q.24 hours later that evening. The patient's blood cultures drawn on the evening of 06/24/2016 are growing Staphylococcu s epidermidis from both sets. These sets were drawn from the port in both cases 10 minutes apart. Today, the patient is resting in her hospital room. She states she feels a little bit better. She is accompanied by her daughter and her granddaughter. PAST MEDICAL HISTORY: 1. Deep vein thrombosis. 2. Ovarian cancer, late stage. PAST SURGICAL HISTORY: 1. Status post total abdominal hysterectomy with bilateral salpingo-oophorectomy. 2. Status post appendectomy. ANTIBIOTICS: 1. Vancomycin. 2. Cefepime. ALLERGIES: The patient has no known drug allergies. SOCIAL HISTORY: The patient has a supportive family. She is a nonsmoker. No alcohol or drug use. FAMILY HISTORY: Reviewed, but not contributory. REVIEW OF SYSTEMS: Other than that detailed above in the History of Present Illness, a comprehensiv e 10-system review was negative. PHYSICAL EXAMINATION: VITAL SIGNS: Temperature maximum is 38 0, temperature current is 37.1, heart rate is 91, respiratory rate is 21 blood pressure is 110/58. GENERAL: The patient is a well-forme d, mildly toxic appearing, elderly female in no acute distress. She is alert and oriented x3. She is in a pleasant demeanor. HEENT: Normocephalic for age. Atraumatic. No scleral icterus. No ora l lesion. No drainage from the nares. Eyes: Conjunctivae within normal limits. Pupils are equal and round, bilaterally. NECK: Supple. No meningismus. LUNGS: Clear to auscultation with good ef fort. HEART: Regular rate and rhythm. No murmur, rub, or gallop noted. No significant peripheral edema. ABDOMEN: Soft, nontender, no masses, no rebound. SKIN: Warm and dry to the touch. The p atient has a moderately large lesion along the left breast surrounding the nipple. This is brightly erythematous, but unchanged. She has a Mediport in the right chest. There is no significant eryth lauren surrounding. MUSCULOSKELETAL: No muscle belly tenderness is noted. No joint line effusion or arthritis seen. NEURO: Cranial nerves II through XII seem to be intact. Peripheral sensation seem s intact in extremities. LABORATORY DATA: 1. Patient has a CBC dated 06/26/2016. It shows a white blood cell count of 0.40, hemoglobin of 8. 1, hematocrit 24.2, and a platelet count of 52. Differential is within normal limits. Absolute ramakrishna trophil count is 250. 2. Serum chemistries on 06/26/2016 show sodium of 136, potassium of 3.3, chloride of 111, bicarbona te of 19, BUN of 16, and creatinine of 0.5. 3. Urinalysis on 06/25/2016 shows trace ketones; otherwise negative. Influenza DFA for influenza A and B is negative. 4. Microbiologic data: Blood cultures from 06/24/2016, 2 sets, are both growing Staphylococcus epi dermidis. ASSESSMENT: Neutropenic fever probably secondary to the bacteremia from Staphylococcus epidermidis. The patient is covered with vancomycin which is covering this organism. Cefepime is a broad-spect rum for other possible sources of infection. The source of the Staphylococcus epidermides bacteremi a is either port infection versus bacteremia through the left chest lesion. The left chest lesion d oes not appear to be actively cellulitic at this point. I suspect that the port is more likely invo lved. At this point, we will continue treating with vancomycin and monitor levels. We will see wit h repeat blood cultures today whether there is high-grade bacteremia or whether we have rapidly julee red this. If the bacteremia is high-grade, then the port must be removed. If not, there is a poten tial discussion about treating through the port depending on issues with vascular access, etc. PLAN: 1. Continue vancomycin. Will check trough levels prior to next dose. 2. Continue cefepime. 3. Follow clinical course and blood cultures. Thank you. /[id number]/MODL
[2016-06-26] MEDS: MIRTAZAPINE 15 MG TAB PO SCH (20:53)
[2016-06-26] MEDS: TPN W/ FAMOTIDINE 1 EA BAG IV SCH (21:17)
[2016-06-26] MEDS: VANCOMYCIN 1.25 GM in D5W 250 ML IV SCH (22:49)
[2016-06-27] MEDS: NYSTATIN SUSP 500000 UNIT/5 ML UDCUP PO SCH ×3 (01:13→21:44)
[2016-06-27] MEDS ORDERED: FUROSEMIDE 20 MG/2 ML VIAL IV ONE (02:25)
[2016-06-27] MEDS ORDERED: FUROSEMIDE 20 MG/2 ML VIAL ONE (02:40)
[2016-06-27 04:58] LABS: ADD MORPH? NO; ATYPICAL LYMPHOCYTE FLAG 0 (0-99); FRAGMENT RBC FLAG 20 (0-99); HEMATOCRIT 25.8 % (38.0-47.0); HEMOGLOBIN 8.6 g/dL (12.6-16.3); LIPEMIA HEMOLYSIS FLAG 80 (0-99); MEAN CELL HEMOGLOBIN CONCENTR. 33.3 g/dL (32.4-36.7); MEAN CELL VOLUME 98.9 fL (81.5-99.8); PLATELET CLUMPS FLAG 0 (0-99); RED BLOOD CELL COUNT 2.61 10^6/uL (4.18-5.33); RED CELL DISTRIBUTION WIDTH 18.6 % (11.5-15.2)
[2016-06-27 05:06] LABS: LEFT SHIFT FLG 300 (0-99); PLATELET COUNT 46 10^3/uL (150-400)
[2016-06-27 05:08] LABS: ADD SCAN? NO; INR 1.55 (0.83-1.16); PROTIME(PATIENT) 18.6 SEC (12.0-15.0)
[2016-06-27 05:09] LABS: APTT 39.3 SEC (23.0-38.0)
[2016-06-27 05:11] LABS: ADD DIFF? NO
--- NOTE | 2016-06-27 05:20 | HOSPPROG ---
Hospitalist Progress Note Assessment/Plan: Was called to bedside this evening for increased oxygen needs. Was on 4L, then 8L face mask. S: pt denies SOB or cough #Acute hypoxemic resp failure: CXRs (personally reviewed by me) clear on , now with increased BL patchy opacities and effusions -DDx: PNA vs. edema. Currently on Vanc/Cefepime. Hold IVFs, trial low-dose IV Lasix Stat team called 7:15 for near syncopal episode after urinating. She denied CP, SOB, palpitations. Feels better now back in bed SBP stable 120/87, glucose >150. #Presyncope: suspect due to fluid shifts after Lasix, had approx 1 liter out after Lasix. Will monitor closely today. Asked her to call RN if needed to get out of bed Critical care time spent: 45 min. Initially call: 10 min bedside, then 20 min reviewing labs, ordering CXR, meds. 15 min bedside during Stat call evaluating bedside, reviewing labs, vitals. Objective: Vital Signs Temp Pulse Resp BP Pulse Ox 37.1 C 94 20 106/58 L 94 06/27/16 04:00 06/27/16 04:00 06/27/16 04:00 06/27/16 04:00 06/27/16 04:00 Laboratory Results 06/27/16 04:45 06/25/16 06/26/16 06/27/16 05:59 05:59 05:59 Intake Total 3050 3455 1150 Output Total 450 1000 1375 Balance 2600 2455 -225 PT 18.6 SEC (12.0-15.0) H 06/27/16 04:45 INR 1.55 (0.83-1.16) H 06/27/16 04:45 - Physical Exam Constitutional: chronically ill appearing Eyes: PERRL Ears, Nose, Mouth, Throat: moist mucous membranes Cardiovascular: regular rate and rhythym Respiratory: other (crackles BL bases) Gastrointestinal: normoactive bowel sounds Genitourinary: no bladder fullness Skin: warm Musculoskeletal: full muscle strength Neurologic: AAOx3 Psychiatric: agitated ICD10 Worksheet Patient Problems: Problems Problem Status Onset Fever and neutropenia Acute
[2016-06-27 05:28] LABS: PLATELET ESTIMATE DECREASED (ADEQ)
[2016-06-27 05:29] LABS: ALANINE AMINOTRANSFERASE 32 IU/L (9-52); ALBUMIN 2.2 g/dL (3.5-5.0); ALKALINE PHOSPHATASE 47 IU/L (38-126); ANION GAP 7 mEq/L (8-16); ASPARTATE AMINOTRANSFERASE 42 IU/L (14-46); BILIRUBIN,TOTAL 0.9 mg/dL (0.1-1.4); CALCIUM 7.3 mg/dL (8.5-10.4); CARBON DIOXIDE 20 mEq/l (22-31); CHLORIDE 107 mEq/L (97-110); CREATININE 0.5 mg/dL (0.6-1.0); GLOMERULAR FILTRATION RATE > 60; GLUCOSE 105 mg/dL (70-100); MAGNESIUM 1.5 mg/dL (1.6-2.3); POTASSIUM 3.1 mEq/L (3.5-5.2); SODIUM 134 mEq/L (134-144); TOTAL PROTEIN 4.2 g/dL (6.3-8.2)
[2016-06-27] MEDS: CEFEPIME HCL 2 GM in D5W 100 ML IV SCH ×3 (05:36→21:00)
[2016-06-27] MEDS ORDERED: POTASSIUM CL 20 MEQ TAB PO ONE ×2 (06:09→10:30)
[2016-06-27] MEDS ORDERED: MAGNESIUM SULF 2 GM/WATER 50 ML IV ONE (06:10)
--- NOTE | 2016-06-27 09:05 | HOSPPROG ---
Hospitalist Progress Note Assessment/Plan: # resp failure - significantly increased O2 needs overnight - possibly d/t pulm edema - received lasix with some improvement in O2 needs - concerned that she may have a PE with subtherapeutic INR - check CTA - if worsens, transfer to ICU # pre-syncope - occurred after lasix - hold lasix today, may need more at some point # L chest wall wound - wound care # staph epi bacteremia - vanc, follow repeat cx's, ID consult - she has a port, will need decision regarding this based on repeat BCx's # febrile neutropenia - cont vanc/cefepime per ID # oral mucositis - oral care # pancytopenia - d/t chemo # metastatic ovarian cancer - last chemo 06/06 # hx DVT - holding AC given thrombocytopenia ## chart reviewed CXR's personally reviewed Subjective: significantly increased O2 needs overnight; received lasix; pre- syncope after lasix Objective: Vital Signs Temp Pulse Resp BP Pulse Ox 37.1 C 99 22 H 120/66 89 L 06/27/16 04:00 06/27/16 07:15 06/27/16 07:15 06/27/16 07:15 06/27/16 07:15 Laboratory Results 06/27/16 04:45 06/27/16 04:45 06/26/16 06/27/16 06/28/16 05:59 05:59 05:59 Intake Total 3455 1813 Output Total 1000 1375 800 Balance 2455 438 -800 PT 18.6 SEC (12.0-15.0) H 06/27/16 04:45 INR 1.55 (0.83-1.16) H 06/27/16 04:45 - Physical Exam Constitutional: no apparent distress, appears nourished Cardiovascular: regular rate and rhythym, no murmur, rub, or gallop, systolic murmur Respiratory: inspiratory crackles (diffusely, bilateral), respiratory distress ( moderate), No reduced air movement, No bronchial breath sounds Gastrointestinal: normoactive bowel sounds, soft, non-tender abdomen, no palpable masses ICD10 Worksheet Patient Problems: Problems Problem Status Onset Fever and neutropenia Acute
[2016-06-27] MEDS ORDERED: IOPAMIDOL (ISOVUE 370) 100 ML BTL IV ONE (09:08)
[2016-06-27] MEDS: GABAPENTIN 300 MG CAP PO SCH ×2 (10:08→21:44)
[2016-06-27] MEDS: HYDROCODONE/APAP 5/325 TAB PO PRN ×3 (10:08→21:44)
--- NOTE | 2016-06-27 10:23 | SOAPPROG ---
SOAP Progress Note Assessment/Plan: Assessment: 1. ovarian ca 2. neutropenic fever 3. mucositis 4. staph sepsis 5. chest wall wound 6. protein calorie malnutrition 7. history dvt 8. Increased 02 requirements, chf 9. pancytopenia 10.pre syncopal spell after lasix Plan: continue cefepime,vanco. Plan is for diuresis, ct angio to r/o PE 06/26/16 12:37 06/27/16 10:19 Subjective: Some sob, feels mouth pain is better Objective: Vital Signs Temp Pulse Resp BP Pulse Ox 99.9 F 95 16 126/72 H 96 06/27/16 09:10 06/27/16 09:10 06/27/16 09:10 06/27/16 09:10 06/27/16 09:10 Laboratory Results 06/27/16 04:45 06/27/16 04:45 06/26/16 06/27/16 06/28/16 05:59 05:59 05:59 Intake Total 3455 1813 Output Total 1000 1375 800 Balance 2455 438 -800 PT 18.6 SEC (12.0-15.0) H 06/27/16 04:45 INR 1.55 (0.83-1.16) H 06/27/16 04:45 Physical Exam - Physical Exam General Appearance: mild distress Respiratory: crackles Cardiac/Chest: regular rate, rhythm Abdomen: normal bowel sounds, non-tender ICD10 Worksheet Patient Problems: Problems Problem Status Onset Fever and neutropenia Acute
[2016-06-27] MEDS: MUPIROCIN 2% 22 GM OINT TP SCH (10:55)
[2016-06-27] MEDS ORDERED: K PHOS 15 MMOL in D5W 250 ML IV ONE (12:00)
--- NOTE | 2016-06-27 13:41 | PCMIDPN ---
Assessment/Plan: Assessment/Plan: 1. CoNS bacteremia: -possible source is port -Currently on Vanco. Vanco trough 6.0 - f/u blood cx from 06/26 pending. -creatinine 0.5 -duration of therapy/decision on port to be determined in next few days. 2. Febrile Neutrapenia: - Currently on empiric Cefepime for now. -Continue for now meds vanco 1.25gm daily cefepime 2g q8- Subjective: intermittent fevers. Feels the same. continues to have chronic left chest pain. denies pain over her right chest port. Denies abd pain. no diarrhea. Mauricio sob. Objective: Vital Signs Temp Pulse Resp BP Pulse Ox 37.1 C 83 16 112/58 L 96 06/27/16 12:15 06/27/16 12:15 06/27/16 12:15 06/27/16 12:15 06/27/16 12:15 Laboratory Results 06/27/16 04:45 06/27/16 04:45 06/26/16 06/27/16 06/28/16 05:59 05:59 05:59 Intake Total 3455 1813 Output Total 1000 1375 800 Balance 2455 438 -800 - Physical Exam General Appearance: alert, no apparent distress Respiratory: lungs clear Cardiac/Chest: regular rate, rhythm, other (right port: no erythema) Extremities: No swelling Abdomen: normal bowel sounds, non-tender, soft, No distended Skin: No erythema ICD10 Worksheet Patient Problems: Problems Problem Status Onset Fever and neutropenia Acute
[2016-06-27] MEDS ORDERED: FUROSEMIDE 20 MG/2 ML VIAL IVP SCH (15:00)
[2016-06-27] MEDS: FILGRASTIM-SNDZ 300 MCG/0.5 ML SYR SC SCH (15:33)
[2016-06-27] MEDS: FUROSEMIDE 20 MG/2 ML VIAL IVP SCH ×2 (15:53→21:44)
--- NOTE | 2016-06-27 17:12 | ECHO ---
[id number] + + [address] : : [place] [address] : : [phone] + + Adult Echocardiographic Report + ---+ :Name: FIDELIA HUGHES JStudy Date: 06/27/2016 04:11 PM : : Hospital Admission Number: [id number] Location: 156: :: 1940 Gender: Female Height: 63 in : :Age: 75 yrs Race: WH Weight: 114 lb : :Reason For Study: pulm edema : : BSA: 1.5 meters2 : :History: breast cancer : + ---+ MMode/2D Measurements \T\ Calculations IVSd: 0.63 cm LVIDd: 4.0 cm FS: 31.0 % LVPWd: 0.66 cm LVIDs: 2.8 cm EDV(Teich): 71.4 ml ESV(Teich): 29.1 ml EF(Teich): 59.2 % Normal Measurement Values: + + :LVIDd (3.5-5.7cm) IVSd (0.6-1.1cm) LVPWd (0.6-1.1cm) Aortic Root (2.0-3.7cm)Left Atrium (1.5-4.0cm): :LV Vol(d) (76-115ml) LV Vol(s) (29-48ml) Ejec Fraction (50-65%)PV Hiren (0.6- 1.2m/s) TV Hiren (0.4-1.0m/s) : :MV E Hiren (0.8-1.0m/s)MV A Hiren (0.3-1.0m/s)LVOT Hiren (0.7-1.2m/s) Asc Ao Hiren ( 0.9-1.8m/s) : + + Doppler Measurements \T\ Calculations MV E max hiren: 53.8 cm/sec Ao V2 max: 96.0 cm/sec LV V1 max: 71.1 cm/sec MV A max hiren: 77.0 cm/sec Ao max P.7 mmHg LV V1 max P.0 mmHg MV E/A: 0.70 Left Ventricle Grossly normal left ventricular size and ejection fraction. Estimated ejection fraction 50-55%. Due to limited visualization of the left ventricular endocardium it is not possible to rule out regional wall motion abnormalities. There is normal left ventricular wall thickness. There is Doppler evidence for diastolic dysfunction. Right Ventricle The right ventricle is grossly normal size. Right ventricular function cannot be assessed due to poor image quality. Atria The left atrial size is normal. Right atrial size is normal. Mitral Valve The mitral valve is normal in structure and function. There is no mitral valve stenosis. There is mild mitral regurgitation. Tricuspid Valve The tricuspid valve is normal in structure and function. There is trace tricuspid regurgitation. Aortic Valve The aortic valve is not well visualized. There is no aortic stenosis. Pulmonic Valve The pulmonic valve is not well visualized. Great Vessels The aortic root is normal size. Pericardium/Pleural There is no pericardial effusion. There is a moderate pleural effusion. Conclusion A two-dimensional transthoracic echocardiogram with M-mode and Doppler was performed. Very technically limited and difficult echocardiogram due to patient having large dressing over left side of chest severely limited access to acoustical windows. Technically limited study with poor acoustic windows. Grossly normal left ventricular size and ejection fraction. Estimated ejection fraction 50-55%. Due to limited visualization of the left ventricular endocardium it is not possible to rule out regional wall motion abnormalities. Right ventricular function cannot be assessed due to poor image quality. Grossly normal valvular structures. There is mild mitral regurgitation. There is trace tricuspid regurgitation. The aortic valve is not well visualized. There is a moderate pleural effusion. There is Doppler evidence for diastolic dysfunction. Final Reading Physician: Del Haney signed on 06/27/2016 05:10 PM Ordering Physician: Cornelius Back Performed By: Martha Pathak
[2016-06-27] MEDS: MIRTAZAPINE 15 MG TAB PO SCH (21:44)
[2016-06-27] MEDS: VANCOMYCIN 1.25 GM in D5W 250 ML IV SCH (21:45)
[2016-06-27] MEDS: TPN W/ FAMOTIDINE 1 EA BAG IV SCH (23:15)
[2016-06-28 05:01] LABS: ALBUMIN 2.3 g/dL (3.5-5.0); ANION GAP 6 mEq/L (8-16); CARBON DIOXIDE 26 mEq/l (22-31); CHLORIDE 101 mEq/L (97-110); GLUCOSE 135 mg/dL (70-100); POTASSIUM 3.2 mEq/L (3.5-5.2); SODIUM 133 mEq/L (134-144); TOTAL PROTEIN 4.4 g/dL (6.3-8.2)
[2016-06-28 05:02] LABS: ALANINE AMINOTRANSFERASE 39 IU/L (9-52); ALKALINE PHOSPHATASE 49 IU/L (38-126); ASPARTATE AMINOTRANSFERASE 51 IU/L (14-46); BILIRUBIN,TOTAL 0.9 mg/dL (0.1-1.4); CALCIUM 7.7 mg/dL (8.5-10.4); CREATININE 0.6 mg/dL (0.6-1.0); GLOMERULAR FILTRATION RATE > 60; MAGNESIUM 1.9 mg/dL (1.6-2.3)
[2016-06-28 05:06] LABS: ADD MORPH? NO; ATYPICAL LYMPHOCYTE FLAG 0 (0-99); FRAGMENT RBC FLAG 20 (0-99); HEMATOCRIT 26.1 % (38.0-47.0); HEMOGLOBIN 8.9 g/dL (12.6-16.3); LIPEMIA HEMOLYSIS FLAG 90 (0-99); MEAN CELL HEMOGLOBIN 32.8 pg (27.9-34.1); MEAN CELL HEMOGLOBIN CONCENTR. 34.1 g/dL (32.4-36.7); MEAN CELL VOLUME 96.3 fL (81.5-99.8); PLATELET CLUMPS FLAG 0 (0-99); PLATELET COUNT 67 10^3/uL (150-400); RED BLOOD CELL COUNT 2.71 10^6/uL (4.18-5.33); RED CELL DISTRIBUTION WIDTH 18.5 % (11.5-15.2)
[2016-06-28 05:09] LABS: LEFT SHIFT FLG 300 (0-99)
[2016-06-28 05:10] LABS: ADD SCAN? NO
[2016-06-28 05:12] LABS: % IMMATURE GRANULYOCYTES 1.1 % (0.0-1.1); ABSOLUTE IMMATURE GRANULOCYTES 0.01 10^3/uL (0.00-0.10)
[2016-06-28 05:13] LABS: ADD DIFF? NO
[2016-06-28 05:29] LABS: INR 1.21 (0.83-1.16); PROTIME(PATIENT) 15.3 SEC (12.0-15.0)
[2016-06-28 05:30] LABS: APTT 37.2 SEC (23.0-38.0)
[2016-06-28] MEDS: CEFEPIME HCL 2 GM in D5W 100 ML IV SCH ×2 (06:17→13:41)
[2016-06-28] MEDS: FUROSEMIDE 20 MG/2 ML VIAL IVP SCH ×3 (06:18→22:43)
[2016-06-28] MEDS: MBX SOLN 30 ML BOTTLE PO PRN ×2 (07:53→19:56)
[2016-06-28] MEDS: NYSTATIN SUSP 500000 UNIT/5 ML UDCUP PO SCH ×2 (07:54→19:54)
[2016-06-28] MEDS: MUPIROCIN 2% 22 GM OINT TP SCH (07:54)
[2016-06-28] MEDS: GABAPENTIN 300 MG CAP PO SCH ×2 (07:54→19:53)
--- NOTE | 2016-06-28 10:59 | PCMIDPN ---
Assessment/Plan: Assessment/Plan: * Neutropenic fever with associated coagulase-negative Staph bacteremia which is likely port related: Repeat cultures are no growth to date. Provided blood cultures on repeat remain negative, think port can be retained. If become positive, then would necessitate port removal. Continue vancomycin. Will reassess vancomycin trough as last was 6.0. * Pulmonary infiltrates: Query etiology with considerations including volume overload, pneumonia, malignancy or pneumonitis related to chemotherapy. Is at risk for opportunistic pathogens. Based on this finding, will continue cefepime in addition to vancomycin. If does not show improvement with diuresis , then may ultimately require bronchoscopy for further diagnostic information. Findings and plan reviewed with patient, daughter, and ICU team. 06/28/16 10:55 Subjective: Patient transferred to ICU for increasing dyspnea. Objective: Vital Signs Temp Pulse Resp BP Pulse Ox 38.3 C H 112 H 24 H 125/75 H 98 06/28/16 07:00 06/28/16 09:00 06/28/16 09:00 06/28/16 08:00 06/28/16 09:00 Laboratory Results 06/28/16 04:30 06/28/16 04:30 06/27/16 06/28/16 06/29/16 05:59 05:59 05:59 Intake Total 1813 2268 Output Total 1375 4600 800 Balance 984 -0926 -800 Vancomycin # 4 Cefepime # 4 Blood cultures 06/24/2016 2/2 Staph epidermidis Blood cultures 06/26/2016 no growth to date ANC 640 Tm 38.3 - Physical Exam General Appearance: alert, non-toxic EENT: No thrush, No conjunctival petechiae Respiratory: respiratory distress (Increased respiratory effort present), coarse breath sounds (Bilaterally) Cardiac/Chest: tachycardia, systolic murmur (2/6 left upper sternal border), other (Port nontender without erythema) Extremities: pedal edema (2+ bilaterally) Abdomen: non-tender, No distended Skin: other (Denuded, erythematous skin overlying left nipple and surrounding breast tissue without tenderness) ICD10 Worksheet Patient Problems: Problems Problem Status Onset Fever and neutropenia Acute
[2016-06-28] MEDS: HYDROCODONE/APAP 5/325 TAB PO PRN ×3 (11:15→19:54)
--- NOTE | 2016-06-28 12:12 | SOAPPROG ---
SOAP Progress Note Assessment/Plan: Assessment: 1. ovarian ca 2. neutropenic fever 3. mucositis 4. staph sepsis 5. chest wall wound 6. protein calorie malnutrition 7. history dvt, possible small pe 8. Increased 02 requirements, presumed chf, pulmonary edema 9. pancytopenia, counts a bit better, continue granix 10.pre syncopal spell after lasix Plan: continue cefepime,vanco. continue high flow 02, diuresis. I think with rise in plts we can start low dose enoxaparin, hernandez catheter, discussed with Dr Back 06/26/16 12:37 06/27/16 10:19 06/28/16 12:08 Subjective: Tired Objective: Vital Signs Temp Pulse Resp BP Pulse Ox 101 F H 119 H 21 H 111/55 L 90 L 06/28/16 07:00 06/28/16 11:00 06/28/16 11:00 06/28/16 11:00 06/28/16 11:00 Laboratory Results 06/28/16 04:30 06/28/16 04:30 06/27/16 06/28/16 06/29/16 05:59 05:59 05:59 Intake Total 1813 2268 Output Total 1375 4600 1000 Balance 438 -2332 -1000 PT 15.3 SEC (12.0-15.0) H 06/28/16 04:30 INR 1.21 (0.83-1.16) H 06/28/16 04:30 Physical Exam - Physical Exam General Appearance: moderate distress Respiratory: other (coarse breath sounds) Cardiac/Chest: tachycardia, systolic murmur Abdomen: normal bowel sounds, non-tender ICD10 Worksheet Patient Problems: Problems Problem Status Onset Fever and neutropenia Acute
[2016-06-28] MEDS ORDERED: K PHOS 10 MMOL in D5W 250 ML IV ONE (12:30)
--- NOTE | 2016-06-28 12:41 | WOCRNPDOC ---
LOGAN Advanced Assessment Note - Skin Integrity Problem, Advanced Assess Left Chest Dressing Type: Allevyn Life Dressing Description: Not Intact, Shadowed Exudate Amount: Scant Exudate Color: Yellow Integumentary Issue Intervention: Dressing Changed, Dressing Initialed & Dated, Non-Silver Antimicrobial Gel Applied (Mupirocin ointment) Kenia Wound Tissue: Erythema, Shiny, Thin, Crusted (slightly, with dried exudate) Kenia Wound Swelling: Mild Wound Bed Color: Red Wound Bed Constitution: Granulation Tissue Wound Edges: Attached, Scarred Site Odor: None Site Measurement - Head-to-Toe Length X Width X Depth (cm): 2 x 3 x 0.1 Skin Integrity Problem Comment: New scar tissue appears to be developing across wound site, from the margin inward toward a shallow, partial-thickness opening. The scar tissue has a scarlet-red coloration and appears thin. No streaking is observed in the surrounding pink, intact tissue. A 0.5 cm vanessa scab is present in the lateral chest approaching the axilla. After cleansing with sterile NS and gauze, and application of skin prep, Muporicin ointment was applied, and an Allevyn sacrum dressing was placed to obtain complete coverage of the left chest area. Dr. Prado was present for ID, and discussed with the daughter that Muporicin was considered unnecesary at this point. Silvasorb gel was provided and discussed as an alternative. Wound care to round next: Jayant, 07/04 Left Buttock Blister Dressing Type: Open to Air Exudate Amount: Scant Exudate Color: Clear Exudate Characteristic(s): Clear, Serous Integumentary Issue Intervention: Dressing Applied (Allevyn, medium), Dressing Initialed & Dated Kenia Wound Tissue: Erythema, Non-blanching Kenia Wound Swelling: None Wound Bed Color: [place] Wound Bed Constitution: Smooth Tissue (dermis), De-roofed Serous Blister Wound Edges: Irregular Site Odor: None Site Measurement - Head-to-Toe Length X Width X Depth (cm): 2 x 2.2 x 0.05 Pressure Injury Stage: Stage 2 Pressure Injury Present on Admit: No Skin Integrity Problem Comment: Entire blister and area of erythema= 7 x 3 x 0; De-roofed area as noted above consists of intact, exposed dermis. Site was cleansed using sterile NS and gauze; Cavilon prep was applied to intact tissue at perimeter. An Allevyn dressing was placed, as well as a TAPS system. Patient is resting on a SPORT bed. TROY Arcos participating in care. Wound care to round next: Jayant, 07/04. Left Hip Pressure Injury Dressing Type: Open to Air Exudate Amount: None Exudate Characteristic(s): None Integumentary Issue Intervention: Dressing Applied (Allevyn, medium), Dressing Initialed & Dated Kenia Wound Tissue: Blanching, Erythema Kenia Wound Swelling: None Wound Bed Color: Purple Site Odor: None Site Measurement - Head-to-Toe Length X Width X Depth (cm): 6 x 0.2 x 0 Pressure Injury Stage: Deep Tissue Injury (DTI) Pressure Injury Present on Admit: No Skin Integrity Problem Comment: Site presents as a long, thin linear bruise. Cavilon prep and an Allevyn dressing were applied to protect; TRYO Arcos assisting.
[2016-06-28] MEDS: POTASSIUM Cl (KCl) 50 ML IV SCH ×2 (12:56→14:41)
[2016-06-28] MEDS: ENOXAPARIN 40 MG/0.4 ML SYR SC SCH (12:56)
--- NOTE | 2016-06-28 13:12 | HOSPPROG ---
Hospitalist Progress Note Assessment/Plan: # resp failure - continues to have very high O2 needs with no reserve; may need intubation - cont abx, diureses; steroids added today # pulm infiltrates/pleural effusions - treating as pulm edema; certainly other considerations - cont broad spectrum abx and lasix - add azith today # small PE/hx DVT - start low dose lovenox; caution given thrombocytopenia - wait on starting warfarin given her low plts # sacral blister - hernandez placed; discussed with Dr Mckeon # L chest wall wound - wound care # staph epi bacteremia - vanc, follow repeat cx's, ID consult - she has a port, will need decision regarding this based on repeat BCx's # febrile neutropenia - cont vanc/cefepime per ID # oral mucositis - oral care # pancytopenia - d/t chemo # metastatic ovarian cancer - last chemo 06/06 ## critical care time 35 minutes Subjective: desat'd with minimal activity overnight Objective: Vital Signs Temp Pulse Resp BP Pulse Ox 38.3 C H 109 H 24 H 91/44 L 97 06/28/16 07:00 06/28/16 12:00 06/28/16 12:00 06/28/16 12:00 06/28/16 12:00 Laboratory Results 06/28/16 04:30 06/28/16 04:30 06/27/16 06/28/16 06/29/16 05:59 05:59 05:59 Intake Total 1813 2268 Output Total 1375 4600 1000 Balance 438 -2332 -1000 PT 15.3 SEC (12.0-15.0) H 06/28/16 04:30 INR 1.21 (0.83-1.16) H 06/28/16 04:30 - Physical Exam Constitutional: chronically ill appearing Cardiovascular: no murmur, rub, or gallop, tachycardia Respiratory: other (diffuse rales, mod resp distress; no wheezes or rhonchi) Gastrointestinal: normoactive bowel sounds, soft, non-tender abdomen, no palpable masses ICD10 Worksheet Patient Problems: Problems Problem Status Onset Fever and neutropenia Acute
[2016-06-28] MEDS: methylPREDNISolone SOD SUCC 40 MG/ML VIAL IVP SCH ×2 (13:42→22:32)
[2016-06-28] MEDS: AZITHROMYCIN IV 500 MG in D5W 250 ML IV SCH (13:57)
[2016-06-28] MEDS: FILGRASTIM-SNDZ 300 MCG/0.5 ML SYR SC SCH (14:30)
--- NOTE | 2016-06-28 14:59 | GCON ---
[f rep st] CONSULTATION PULMONARY CONSULTATION DATE OF CONSULTATION: 06/28/2016 HPI: The patient is a 75-year-old female with a history of metastatic ovarian carcinoma, who has be en getting chemotherapy over the last several months. She was admitted to the floor on 06/24/2016 w ith neutropenic fever and mental status changes. She was treated with empiric antibiotics and her i nitial chest x-ray appeared to be without significant changes. She quickly had positive blood cultu res and was on appropriate antibiotics for those, but developed increasing rales on exam over the santos bsequent days. Her I's and O's were markedly positive over this period of time. A chest x-ray on t he 18 showed increasing infiltrate and effusion, followed by a CT angiogram that showed diffuse in filtrates; left greater than right, with patchy reticular pattern with bilateral pleural effusions. There was a tiny pulmonary embolism. This was thought to be mostly due to edema and she was given Lasix, but was transferred to the ICU. Of note, she had a BNP of 2650 at that time. Today, she appeared to be relatively stable, but had an increasing infiltrate; left greater than rig ht, and a question of whether she should continue with the cefepime at this time. Again, I noted th at over the last 4-5 days, her input was substantially greater than her output. She was sleeping on my arrival into the room and so a physical exam was deferred. PAST MEDICAL HISTORY: Includes the ovarian cancer, as described above. She has had a remote deep v ein thrombosis. She has a known metastatic lesion on her breast that has been stable for at least t he past year. PAST SURGERY: Includes hysterectomy with salpingo-oophorectomy, as well as appendectomy in the past . SOCIAL HISTORY: She is a nonsmoker. No alcohol or IV drug use. FAMILY HISTORY: Noncontributory at this time. CURRENT MEDICATIONS: Include: Tylenol, [place], azithromycin, cefepime, Lovenox, Lasix. She is gett ing 20 mg IV q.6 hours. Neurontin. Solu-Medrol 20 mg q.8 hours. Remeron, Zofran, and electrolyte protocol with TPN. She is also getting vancomycin and warfarin. LABORATORY DATA: Objective data includes a CT scan, as described above. Her white count today is 0.9, hemoglobin of 8.9, hematocrit 26, and platelets of 67. Her INR was 1. 2. Sodium is 133, potassium 3.2, chloride 101, bicarb 26, BUN 16, creatinine 0.6. Calcium 7.7. LF Ts essentially normal. Albumin 2.3. UA was negative. ASSESSMENT/PLAN: 1. Hypoxemia in the setting of neutropenic fever and infiltrates. While it is certainly possible t hat her infiltrates do represent pulmonary edema; particularly with a high BNP and her I's and O's, I think the risks of stopping her antibiotics are outweighed by the benefits of continuing them for now. This would be an excellent application of a procalcitonin, but that is not currently available at this hospital. In any case, she did get the Lasix today. We discussed the case both on rounds and with Dr. Prado from Infectious Disease. We will see how things look over the next 24 hours. If her chest x-ray substantially improves and her urine output matches that, then I think it would be r easonable to stop the antibiotics at that time. My threshold for a bronchoscopy in a neutropenic pa tient is quite low. She seems to be getting better at this time. We may revisit this depending on her course. 2. Bacteremia. This is thought to be due to her port. It is consistent given its Staphylococcus e pidermidis. She is being treated with cefepime and vancomycin at this time. 3. Hypoxemia due to the pneumonia and/or pulmonary edema. Only supportive care is required. I do not believe she requires any mechanical ventilation. A total of about 45 minutes of critical care time was required in evaluation of this patient. /[id number]/MODL
[2016-06-28] MEDS ORDERED: PROTOCOL POTASSIUM 1 DOSE MISC PRN (16:46)
[2016-06-28] MEDS ORDERED: PROTOCOL CALCIUM 1 DOSE IV PRN (16:46)
[2016-06-28] MEDS ORDERED: PROTOCOL MAGNESIUM 1 DOSE IV PRN (16:46)
[2016-06-28] MEDS ORDERED: PROTOCOL K PHOSPHATE 1 DOSE IV PRN (16:46)
[2016-06-28 18:52] LABS: POTASSIUM 3.8 mEq/L (3.5-5.2)
[2016-06-28] MEDS: MIRTAZAPINE 15 MG TAB PO SCH (19:53)
[2016-06-28] MEDS: POTASSIUM Cl (KCl) 100 ML IV SCH ×2 (19:55→22:32)
[2016-06-28] MEDS: TPN W/ FAMOTIDINE 1 EA BAG IV SCH (20:44)
[2016-06-28] MEDS: VANCOMYCIN 1.25 GM in D5W 250 ML IV SCH (22:32)
[2016-06-29] MEDS: CEFEPIME HCL 2 GM in D5W 100 ML IV SCH ×4 (00:10→21:03)
[2016-06-29 04:33] LABS: IONIZED CALCIUM 1.13 MMOL/L (1.12-1.30)
[2016-06-29 04:37] LABS: ADD DIFF? YES; ADD MORPH? NO; ATYPICAL LYMPHOCYTE FLAG 0 (0-99); FRAGMENT RBC FLAG 20 (0-99); HEMATOCRIT 26.4 % (38.0-47.0); HEMOGLOBIN 8.8 g/dL (12.6-16.3); LIPEMIA HEMOLYSIS FLAG 80 (0-99); MEAN CELL HEMOGLOBIN 32.7 pg (27.9-34.1); MEAN CELL HEMOGLOBIN CONCENTR. 33.3 g/dL (32.4-36.7); MEAN CELL VOLUME 98.1 fL (81.5-99.8); MEAN PLATELET VOLUME 13.8 fL (8.7-11.7); PLATELET CLUMPS FLAG 0 (0-99); PLATELET COUNT 58 10^3/uL (150-400); RED BLOOD CELL COUNT 2.69 10^6/uL (4.18-5.33); RED CELL DISTRIBUTION WIDTH 18.6 % (11.5-15.2)
[2016-06-29 04:46] LABS: LEFT SHIFT FLG 300 (0-99)
[2016-06-29 04:47] LABS: ADD SCAN? NO
[2016-06-29 04:55] LABS: ALANINE AMINOTRANSFERASE 32 IU/L (9-52); ALBUMIN 2.1 g/dL (3.5-5.0); ALKALINE PHOSPHATASE 51 IU/L (38-126); ANION GAP 4 mEq/L (8-16); ASPARTATE AMINOTRANSFERASE 53 IU/L (14-46); BILIRUBIN,TOTAL 0.8 mg/dL (0.1-1.4); CALCIUM 7.9 mg/dL (8.5-10.4); CARBON DIOXIDE 28 mEq/l (22-31); CHLORIDE 102 mEq/L (97-110); CREATININE 0.4 mg/dL (0.6-1.0); GLOMERULAR FILTRATION RATE > 60; GLUCOSE 195 mg/dL (70-100); MAGNESIUM 2.2 mg/dL (1.6-2.3); POTASSIUM 4.3 mEq/L (3.5-5.2); SODIUM 134 mEq/L (134-144); TOTAL PROTEIN 4.5 g/dL (6.3-8.2)
[2016-06-29 04:55] LABS: INR 1.19 (0.83-1.16); PROTIME(PATIENT) 15.1 SEC (12.0-15.0)
[2016-06-29 04:56] LABS: APTT 39.2 SEC (23.0-38.0)
[2016-06-29] MEDS: methylPREDNISolone SOD SUCC 40 MG/ML VIAL IVP SCH ×3 (05:33→20:53)
[2016-06-29] MEDS: FUROSEMIDE 20 MG/2 ML VIAL IVP SCH ×2 (05:34→12:21)
[2016-06-29 06:01] LABS: LARGE PLATELETS PRESENT; PLATELET ESTIMATE DECREASED (ADEQ); TOXIC GRANULATION PRESENT; TOXIC VACUOLIZATION PRESENT
[2016-06-29 06:06] LABS: ELLIPTOCYTES 1+; KERATOCYTES 1+; MACROCYTES 1+; MICROCYTES 1+; POLYCHROMASIA 1+; SCHISTOCYTES 1+
[2016-06-29 06:07] LABS: SPHEROCYTES 1+
[2016-06-29] MEDS: ENOXAPARIN 40 MG/0.4 ML SYR SC SCH (08:19)
[2016-06-29] MEDS: NYSTATIN SUSP 500000 UNIT/5 ML UDCUP PO SCH ×2 (08:19→20:35)
[2016-06-29] MEDS: GABAPENTIN 300 MG CAP PO SCH ×2 (08:19→20:35)
[2016-06-29] MEDS: MUPIROCIN 2% 22 GM OINT TP SCH (08:19)
[2016-06-29] MEDS: AZITHROMYCIN IV 500 MG in D5W 250 ML IV SCH (08:19)
[2016-06-29] MEDS: MBX SOLN 30 ML BOTTLE PO PRN (08:20)
--- NOTE | 2016-06-29 10:25 | PCMIDPN ---
Assessment/Plan: Assessment/Plan: * Neutropenic fever with associated coagulase-negative Staph bacteremia which is likely port related: Repeat cultures remain no growth. Will increase vancomycin 1.5 g IV Q 24 hours - anticipate will begin to accumulate over time. As long as cultures remain negative will plan to retain port. * Pulmonary infiltrates: No significant improvement with diuresis. Reviewed with Dr. Diop who plans bronchoscopy this p.m. to assess for opportunistic infection such as PCP or Aspergillus. Will check urine Legionella antigen, serum cryptococcal antigen, and serum Aspergillus antigen. Respiratory viral panel PCR pending. Continue antibiotic therapy with vancomycin, cefepime and azithromycin; think usual pathogens of community-acquired pneumonia will be less likely based on clinical course and radiographic appearance. Time spent, greater than 35 minutes, of which greater than half was spent in education/counseling/coordination of care related to neutropenic fever, bacteremia, and bilateral pulmonary infiltrates. 06/29/16 10:22 06/29/16 10:28 06/29/16 10:28 Subjective: Patient with persistent shortness of breath. Minimal cough. Objective: Vital Signs Temp Pulse Resp BP Pulse Ox 35.6 C L 83 15 88/41 L 92 06/29/16 08:00 06/29/16 08:00 06/29/16 08:00 06/29/16 08:00 06/29/16 08:00 Laboratory Results 06/29/16 04:25 06/29/16 04:25 06/28/16 06/29/16 06/30/16 05:59 05:59 05:59 Intake Total 2268 2887 Output Total 1700 9440 Balance -2332 -303 Vancomycin # 5 Cefepime # 5 Azithromycin # 2 Influenza DFA negative Respiratory virus PCR pending Blood cultures x2 06/26/2016 no growth Chest x-ray with persistent bilateral infiltrates without significant interval change Tm 39.1 ANC approximately 700 - Physical Exam General Appearance: alert, no apparent distress EENT: No scleral icterus, No thrush, No conjunctival petechiae Respiratory: lungs clear, respiratory distress (Mild increase in respiratory effort) Neck: supple Cardiac/Chest: regular rate, rhythm, other (Port nontender without erythema) Extremities: pedal edema (1 to 2+ bilaterally) Abdomen: non-tender, No distended Skin: No embolic lesions Neuro/Psych: No confused ICD10 Worksheet Patient Problems: Problems Problem Status Onset Fever and neutropenia Acute
[2016-06-29] MEDS: HYDROCODONE/APAP 5/325 TAB PO PRN ×2 (11:05→17:34)
--- NOTE | 2016-06-29 11:23 | SOAPPROG ---
SOAP Progress Note Assessment/Plan: Assessment: 1. ovarian ca 2. neutropenic fever 3. mucositis, getting better 4. staph sepsis, second set of blood cultures negative 5. chest wall wound 6. protein calorie malnutrition 7. history dvt, possible small pe 8. Increased 02 requirements, presumed chf, pulmonary edema. CXR a bit better today 9. pancytopenia, counts a bit better, continue granix 10.pre syncopal spell after lasix Plan: continue cefepime,vanco. continue high flow 02, diuresis. continue low dose enoxaparin, hernandez catheter.Plan is for bronch today to check for opportunistic organisms. she overall looks a bit better although no change in 02 requirements Subjective: More alert, feels a bit better Objective: Vital Signs Temp Pulse Resp BP Pulse Ox 96.1 F L 90 17 90/49 L 93 06/29/16 08:00 06/29/16 10:00 06/29/16 10:00 06/29/16 10:00 06/29/16 10:00 Laboratory Results 06/29/16 04:25 06/29/16 04:25 06/28/16 06/29/16 06/30/16 05:59 05:59 05:59 Intake Total 2268 2887 Output Total 4600 3190 Balance -2332 -303 PT 15.1 SEC (12.0-15.0) H 06/29/16 04:40 INR 1.19 (0.83-1.16) H 06/29/16 04:40 Physical Exam - Physical Exam General Appearance: mild distress Respiratory: decreased breath sounds Cardiac/Chest: regular rate, rhythm Abdomen: normal bowel sounds, non-tender ICD10 Worksheet Patient Problems: Problems Problem Status Onset Fever and neutropenia Acute
[2016-06-29] MEDS ORDERED: K PHOS 10 MMOL in D5W 250 ML IV ONE (12:00)
[2016-06-29] MEDS ORDERED: fentaNYL 100 MCG/2 ML INJ ONE (12:45)
[2016-06-29] MEDS ORDERED: LIDOCAINE 1% 30 ML SDV ONE ×2 (12:45→13:02)
[2016-06-29] MEDS ORDERED: MIDAZOLAM 2 MG/2 ML VIAL ONE (12:45)
[2016-06-29] MEDS ORDERED: ALBUTEROL 3 ML DEYVIAL ONE ×2 (12:45→13:02)
[2016-06-29] MEDS ORDERED: LIDOCAINE 2% JELLY 5 ML TUBE ONE (13:01)
[2016-06-29] MEDS ORDERED: EPINEPHrine 1 MG/10 ML SYR IVP ONE (13:15)
--- NOTE | 2016-06-29 14:05 | HOSPPROG ---
Hospitalist Progress Note Assessment/Plan: 75 yo f w metastatic CA here w respiratory failure resp failure - continues to have very high O2 needs with no reserve - cont abx, hold further diuresis given lack of change in cxr despite recheck bnp in AM given normal (albeit low quality) echo, and lack of improvement, I suspect volume overload not major player in pulm process ON vanc cefepime azithro as well as steroids bronch w BAL done today no blood to suggest DAH pulm infiltrates/pleural effusions - treating as pulm edema; certainly other considerations - cont broad spectrum abx and steroids - add azith today as above small PE/hx DVT - start low dose lovenox; caution given thrombocytopenia - wait on starting warfarin given her low plts mucusitis: precludes eating currently on TPN which carries addiional risk counts improving goal is to dc tpn 06/30 sacral blister - hernandez placed; discussed with Dr Linda Basurto chest wall wound - wound care staph epi bacteremia - vanc, follow repeat cx's, ID consult - she has a port, will need decision regarding this based on repeat BCx's repeat blood cx 06/23 NGTD febrile neutropenia - cont vanc/cefepime per ID pancytopenia - d/t chemo metastatic ovarian cancer - last chemo 06/06 risk: high Subjective: case discussed w linda weinberg. cxr w L>R airspace disease ( interp by me). bronch w mucus plugging, not a lot of purulence. not bloody Objective: Vital Signs Temp Pulse Resp BP Pulse Ox 35.6 C L 79 24 H 83/53 L 96 06/29/16 08:00 06/29/16 12:00 06/29/16 12:00 06/29/16 12:00 06/29/16 12:00 Laboratory Results 06/29/16 04:25 06/29/16 04:25 06/28/16 06/29/16 06/30/16 05:59 05:59 05:59 Intake Total 2268 2887 Output Total 4600 3190 Balance -2332 -303 PT 15.1 SEC (12.0-15.0) H 06/29/16 04:40 INR 1.19 (0.83-1.16) H 06/29/16 04:40 - Physical Exam Constitutional: no apparent distress, appears nourished Eyes: PERRL, anicteric sclera Ears, Nose, Mouth, Throat: moist mucous membranes, hearing normal Cardiovascular: regular rate and rhythym, no murmur, rub, or gallop, tachycardia Respiratory: other (b/l crackles. good air movement) Gastrointestinal: normoactive bowel sounds, soft, non-tender abdomen Genitourinary: No hernandez in urethra Skin: warm, normal color Musculoskeletal: full muscle strength, no muscle tenderness Neurologic: AAOx3, sensation intact bilaterally Psychiatric: interacting appropriately, not anxious Lymph, Heme, Immunologic: no cervical LAD ICD10 Worksheet Patient Problems: Problems Problem Status Onset Fever and neutropenia Acute
[2016-06-29] MEDS ORDERED: D50W 25 GM/50 ML SYR IVP PRN (14:26)
[2016-06-29] MEDS ORDERED: ALBUMIN 25% 100 ML SOLN IV ONE (14:36)
[2016-06-29] MEDS: FILGRASTIM-SNDZ 300 MCG/0.5 ML SYR SC SCH (15:22)
--- NOTE | 2016-06-29 15:44 | PDINTPN ---
Income Tax Return Preparer Progress Note Assessment/Plan: Assessment/plan: 75 F with metastatic ovarian cancer admitted 06/24 with neutropenic fever following chemotherapy 2-3 weeks [employer]. She grew S. epi from blood cultures and has been getting antibiotics, with the presumed source from her infusiport. Part of her treatment has also been IVF and she developed a worsening oxygen requirement and significant infiltrates on CXR. She was treated with diuretics with good UOP, but her CXR and O2 requirement failed to respond. * PNA- Her CXR clearly worsened since admission, and fluid overload is a reasonable assumption. However, given her immunocompromised state and risk for unusual pathogens, a BAL is indicated. S. epi seems like an unusual pathogen for PNA as well. She subsequently had a BAL earlier today (documented separately ) and tolerated it well. * Bacteremia- her WBC is rising and she is no longer neutropenic while getting Filgrastim. Abx include Zithro, Vanco, and Cefepime. * Steroids- will need to clarify this * Hx DVT on Coumadin Objective: Vital Signs Temp Pulse Resp BP Pulse Ox 35.6 C L 79 24 H 83/53 L 96 06/29/16 08:00 06/29/16 12:00 06/29/16 12:00 06/29/16 12:00 06/29/16 12:00 Laboratory Results 06/29/16 04:25 06/29/16 04:25 06/28/16 06/29/16 06/30/16 05:59 05:59 05:59 Intake Total 2268 2887 Output Total 4600 3190 Balance -2332 -303 PT 15.1 SEC (12.0-15.0) H 06/29/16 04:40 INR 1.19 (0.83-1.16) H 06/29/16 04:40 Physical Exam - Physical Exam General Appearance: WD/WN, alert, no apparent distress EENT: PERRL/EOMI Neck: supple Respiratory: lungs clear, decreased breath sounds, No rales, No rhonchi Cardiac/Chest: normal peripheral pulses, regular rate, rhythm, No edema Abdomen: normal bowel sounds, non-tender, soft, No distended Skin: normal color, warm/dry, No cyanosis Extremities: normal range of motion, No pedal edema Neuro/Psych: alert, normal mood/affect, oriented x 3 ICD10 Worksheet Patient Problems: Problems Problem Status Onset Fever and neutropenia Acute
[2016-06-29] MEDS ORDERED: ALBUMIN 25% 100 ML IV ONE (17:30)
[2016-06-29] MEDS: INSULIN REGULAR HUMAN 100 UNIT/ML SC SCH ×2 (19:35→23:58)
[2016-06-29 20:15] LABS: POTASSIUM 4.9 mEq/L (3.5-5.2)
[2016-06-29] MEDS: MIRTAZAPINE 15 MG TAB PO SCH (20:35)
--- NOTE | 2016-06-29 20:48 | GPN ---
[f rep st] PROCEDURE NOTE DATE OF PROCEDURE: 06/29/2016 PROCEDURE: Bronchoalveolar lavage. CONSENT: Informed consent was obtained from the patient prior to the administration of anesthesia. The risks and benefits of both the procedure as well as conscious sedation were explained in detail , and she agreed to proceed. Next, conscious sedation was achieved using a total of 1.5 mg of IV Versed and 25 mcg of IV fentanyl . The patient tolerated these well. There was minor hypotension following the procedure that respo nded well to fluid boluses. No pressors were required. Next, a time out was obtained prior to the beginning of the procedure, after which the patient recei kvng the first doses of her conscious sedation. The bronchoscope was easily passed to the oropharynx that appeared to have evidence of thrush. The vocal cords appeared to be normal as was the epiglot tis and the trachea. There were no significant secretions and no mucosal abnormalities throughout t he main trachea. The main vikash was sharp without evidence of underlying adenopathy. The bronchos cope was directed toward the left upper lobe and was wedged in the apical posterior subsegment. 3 a liquots of 40 mL of normal saline were instilled. Approximately 75 cc total of fluid was returned. There was some minor mucus plugging in this area, but there was no evidence of diffuse alveolar hem orrhage. Overall, the patient tolerated the procedure well without complications. SPECIMENS: Sent to the laboratory appropriately. /[id number]/MODL
[2016-06-29] MEDS: VANCOMYCIN 1.5 GM in D5W 250 ML IV SCH (21:37)
[2016-06-29] MEDS: TPN W/ FAMOTIDINE 1 EA BAG IV SCH (21:38)
[2016-06-30 05:22] LABS: IONIZED CALCIUM 1.08 MMOL/L (1.12-1.30)
[2016-06-30 05:23] LABS: ADD MORPH? NO; ADD SCAN? YES; ATYPICAL LYMPHOCYTE FLAG 0 (0-99); FRAGMENT RBC FLAG 20 (0-99); HEMATOCRIT 22.8 % (38.0-47.0); HEMOGLOBIN 7.9 g/dL (12.6-16.3); LIPEMIA HEMOLYSIS FLAG 90 (0-99); MEAN CELL HEMOGLOBIN 33.5 pg (27.9-34.1); MEAN CELL HEMOGLOBIN CONCENTR. 34.6 g/dL (32.4-36.7); MEAN CELL VOLUME 96.6 fL (81.5-99.8); PLATELET CLUMPS FLAG 10 (0-99); PLATELET COUNT 58 10^3/uL (150-400); RED BLOOD CELL COUNT 2.36 10^6/uL (4.18-5.33); RED CELL DISTRIBUTION WIDTH 18.6 % (11.5-15.2)
[2016-06-30 05:34] LABS: INR 1.21 (0.83-1.16); PROTIME(PATIENT) 15.3 SEC (12.0-15.0)
[2016-06-30 05:38] LABS: LEFT SHIFT FLG 300 (0-99)
[2016-06-30 05:39] LABS: ANION GAP 2 mEq/L (8-16); CALCIUM 7.9 mg/dL (8.5-10.4); CARBON DIOXIDE 30 mEq/l (22-31); CHLORIDE 104 mEq/L (97-110); CREATININE 0.5 mg/dL (0.6-1.0); GLOMERULAR FILTRATION RATE > 60; GLUCOSE 145 mg/dL (70-100); MAGNESIUM 2.4 mg/dL (1.6-2.3); POTASSIUM 5.4 mEq/L (3.5-5.2); SODIUM 136 mEq/L (134-144)
[2016-06-30] MEDS: CEFEPIME HCL 2 GM in D5W 100 ML IV SCH ×3 (06:03→21:36)
[2016-06-30] MEDS: methylPREDNISolone SOD SUCC 40 MG/ML VIAL IVP SCH (06:03)
[2016-06-30 07:24] LABS: ADD DIFF? YES; SCAN POSITIVE
[2016-06-30 07:55] LABS: ELLIPTOCYTES 1+; GIANT PLATELETS PRESENT; KERATOCYTES 1+; LARGE PLATELETS PRESENT; MACROCYTES 1+; MICROCYTES 1+; PLATELET ESTIMATE DECREASED (ADEQ); POLYCHROMASIA 1+; SCHISTOCYTES 1+; SPHEROCYTES 1+; TOXIC GRANULATION PRESENT; TOXIC VACUOLIZATION PRESENT
[2016-06-30] MEDS: INSULIN REGULAR HUMAN 100 UNIT/ML SC SCH (08:27)
[2016-06-30] MEDS: NYSTATIN SUSP 500000 UNIT/5 ML UDCUP PO SCH ×2 (08:28→20:06)
[2016-06-30] MEDS: ENOXAPARIN 40 MG/0.4 ML SYR SC SCH (08:28)
[2016-06-30] MEDS: AZITHROMYCIN IV 500 MG in D5W 250 ML IV SCH (08:28)
[2016-06-30] MEDS: GABAPENTIN 300 MG CAP PO SCH ×2 (08:29→20:05)
[2016-06-30] MEDS: MUPIROCIN 2% 22 GM OINT TP SCH (08:29)
[2016-06-30] MEDS: HYDROCODONE/APAP 5/325 TAB PO PRN ×3 (08:56→19:56)
[2016-06-30] MEDS ORDERED: FLUCONAZOLE 100 MG TAB PO SCH (10:00)
[2016-06-30] MEDS ORDERED: CALCIUM GLUCONATE 50 ML IV ONE (10:01)
[2016-06-30] MEDS ORDERED: MBX SOLN 30 ML BOTTLE PO PRN (10:57)
--- NOTE | 2016-06-30 11:09 | HOSPPROG ---
Hospitalist Progress Note Assessment/Plan: 75 yo f w metastatic CA here w respiratory failure resp failure - improved 02 requirements BAL w some mucus, no blood initial micro unrevealing - cont abx, hold further diuresis given lack of change in cxr despite bnp 2650-> 350 w diuresis although volume overload not clearly the cause of this yesterday's bronch appearance not c/w vol overload given normal (albeit low quality) echo, and lack of improvement, I suspect volume overload not major player in pulm process ON vanc cefepime azithro dc steroids today given absence of wheezing or clear inflammatory process pulm infiltrates/pleural effusions - treating as pulm edema; certainly other considerations - cont broad spectrum abx and steroids - add azith today as above small PE/hx DVT - start low dose lovenox; caution given thrombocytopenia - wait on starting warfarin given her low plts platelets stably low suspect we can start full dose anticoag in coming days mucusitis: interfering w eating stop TPN counts improving continue magic mouthwash treat thrush sacral blister - hernandez placed; discussed with Dr Linda Basurto chest wall wound - wound care staph epi bacteremia - vanc, follow repeat cx's, ID consult - she has a port, will need decision regarding this based on repeat BCx's repeat blood cx 06/23 NGTD febrile neutropenia - cont vanc/cefepime per ID pancytopenia - d/t chemo metastatic ovarian cancer - last chemo 06/06 risk: high Subjective: case d/w dr joshi. tele: sinus tach (interp by me) Objective: Vital Signs Temp Pulse Resp BP Pulse Ox 36.8 C 94 20 101/52 L 96 06/30/16 08:00 06/30/16 10:00 06/30/16 10:00 06/30/16 08:00 06/30/16 10:00 Microbiology 06/29/16 14:00 Gram Stain - Final Lung Left Upper Lobe - Bronchial Washings 06/29/16 14:00 Gram Stain - Final Lung Left Upper Lobe - Bronchial Washings Laboratory Results 06/30/16 05:15 06/30/16 05:15 06/29/16 06/30/16 07/01/16 05:59 05:59 05:59 Intake Total 0419 1251 Output Total 3190 1999 Balance -303 531 PT 15.3 SEC (12.0-15.0) H 06/30/16 05:15 INR 1.21 (0.83-1.16) H 06/30/16 05:15 - Physical Exam Constitutional: no apparent distress, appears nourished Eyes: PERRL, anicteric sclera Ears, Nose, Mouth, Throat: moist mucous membranes, hearing normal Cardiovascular: regular rate and rhythym, no murmur, rub, or gallop Respiratory: other (good air movement. no wheeze. no focal decreased breath sounds) Gastrointestinal: normoactive bowel sounds, soft, non-tender abdomen Genitourinary: hernandez in urethra Skin: warm, normal color Musculoskeletal: full muscle strength, no muscle tenderness Neurologic: AAOx3, sensation intact bilaterally Psychiatric: interacting appropriately, not anxious ICD10 Worksheet Patient Problems: Problems Problem Status Onset Fever and neutropenia Acute
--- NOTE | 2016-06-30 12:11 | SOAPPROG ---
SOAP Progress Note Assessment/Plan: Assessment: 1. ovarian ca with mets to left breast 2. neutropenic fever, improved 3. mucositis, still an issue 4. staph sepsis, second set of blood cultures negative 5. chest wall wound 6. protein calorie malnutrition 7. history dvt, possible small pe 8. Hypoxemia, 02 requirements decreasing, bronch results noted 9. pancytopenia, counts a bit better, continue granix 10.pre syncopal spell after lasix Plan: continue cefepime,vanco per ID. continue 02, currently at 3 liters, holding diuresis. continue low dose enoxaparin until plts recover a bit more, may be able to d/c hernandez catheter in next few days. Mucositis still an issue, try to feed when a bit better 06/30/16 12:00 Subjective: Feels better, mouth still sore Objective: Vital Signs Temp Pulse Resp BP Pulse Ox 98.2 F 94 20 101/52 L 96 06/30/16 08:00 06/30/16 10:00 06/30/16 10:00 06/30/16 08:00 06/30/16 10:00 Microbiology 06/29/16 14:00 Gram Stain - Final Lung Left Upper Lobe - Bronchial Washings 06/29/16 14:00 Gram Stain - Final Lung Left Upper Lobe - Bronchial Washings Laboratory Results 06/30/16 05:15 06/30/16 05:15 06/29/16 06/30/16 07/01/16 05:59 05:59 05:59 Intake Total 2887 2531 Output Total 3190 1999 Balance -303 531 PT 15.3 SEC (12.0-15.0) H 06/30/16 05:15 INR 1.21 (0.83-1.16) H 06/30/16 05:15 Physical Exam - Physical Exam General Appearance: mild distress Respiratory: decreased breath sounds Cardiac/Chest: regular rate, rhythm Abdomen: normal bowel sounds, non-tender Skin: other (dressing left breast) ICD10 Worksheet Patient Problems: Problems Problem Status Onset Fever and neutropenia Acute
--- NOTE | 2016-06-30 12:30 | PCMIDPN ---
Assessment/Plan: 1. Coagulase-negative Staph bacteremia in patient with history of febrile neutropenia: She is no longer neutropenic. Port felt to be source, but port can stay in given rapid clearance of bacteremia, and the less virulent nature of this organism. Will need 10-14 day course of treatment. Repeat blood cultures no growth so far. Vancomycin dosed recently adjusted, will need trough repeated moving forward. Creatinine stable. 2. Pulmonary infiltrates/pneumonia: Bronchoscopy yesterday; multiple tests are pending. Oxygen requirement way down , she is afebrile, and radiographically improving, making a more sinister process with fungi or Pneumocystis less likely. Continue cefepime and azithromycin for now. Will likely be able to discontinue these antibiotics in short order. 3.? History of thrush: She is on 200 mg of fluconazole; 100 mg will suffice. Will change this. Subjective: Tired. Says she is coughing less. 90% on room air. Constipated. Objective: Vancomycin 1.5 g IV daily day 6 Cefepime 2 g IV q.8 hours day 6 Azithromycin 500 mg daily day 3 Fluconazole 200 mg daily afebrile 96% on 3 L 90% on room air Vital Signs Temp Pulse Resp BP Pulse Ox 36.8 C 94 20 101/52 L 96 06/30/16 08:00 06/30/16 10:00 06/30/16 10:00 06/30/16 08:00 06/30/16 10:00 Microbiology 06/29/16 14:00 Gram Stain - Final Lung Left Upper Lobe - Bronchial Washings 06/29/16 14:00 Gram Stain - Final Lung Left Upper Lobe - Bronchial Washings Laboratory Results 06/30/16 05:15 06/30/16 05:15 06/29/16 06/30/16 07/01/16 05:59 05:59 05:59 Intake Total 2887 1751 Output Total 3190 2000 Balance -303 531 Respiratory viral PCR pending Multiple bronchoscopy specimens pending g stain from bronchoscopy showed rare Gram-positive rods no polys, culture pending June 26 blood cultures x2 no growth so far Serum cryptococcal antigen, Aspergillus galactomannan pending, Legionella urine antigen pending - Physical Exam General Appearance: alert, other (Looks older than stated age) EENT: other (2 small abscess ulcers notable posterior buccal mucosa on the right side), No scleral icterus Respiratory: lungs clear Cardiac/Chest: regular rate, rhythm, other (Port right chest looks fine with no erythema or tenderness. Patient's left breast is notable for some dusky/purple erythema with denuded skin that looks clean and dry without evidence of infection) Abdomen: non-tender, soft Skin: No embolic lesions ICD10 Worksheet Patient Problems: Problems Problem Status Onset Fever and neutropenia Acute
[2016-06-30] MEDS: FILGRASTIM-SNDZ 300 MCG/0.5 ML SYR SC SCH (15:05)
--- NOTE | 2016-06-30 15:22 | WOCRNPDOC ---
WOCRN Advanced Assessment Note - Skin Integrity Problem, Advanced Assess Left Buttock Blister Dressing Type: Allevyn Life Dressing Description: Clean/Dry, Intact Exudate Amount: None Integumentary Issue Intervention: Dressing Changed Wound Bed Color: Liebenthal Wound Bed Constitution: De-roofed Serous Blister (1/3 de roofed, with 2/3 remaining) Wound Edges: Attached Skin Integrity Problem Comment: Reconsulted by TROY Warren today as wound appeared too dry. TROY Esparza had applied an appropriate wound moisturizer prior to wound Rn rounding and wound appeared to be perfectly balanced in hydration when assessed. As epithelial layer of roof may still adhere decision was made to secure it with steri strips and cover it with a contact layer after applying wound gel to open area. Covered with Alleyvn. Wound care will round again 07/06. Left Chest Dressing Type: Allevyn Life Dressing Description: Clean/Dry, Intact Integumentary Issue Intervention: Visualized Under Dressing Kenia Wound Tissue: Painful/Tender Wound Bed Color: Liebenthal, Yellow Wound Bed Constitution: Smooth Tissue (10%), Subcutaneous Fat (90%) Skin Integrity Problem Comment: Wound beds clean with fat visible throughout breast area and around nipple. Dark red/purple tender erythema throughout, however this does not appear to be infected. Patient reports wound has improved since hospitalization. Will continue current plan of care. 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
[2016-06-30 15:35] LABS: HEMATOCRIT 23.8 % (38.0-47.0); HEMOGLOBIN 8.1 g/dL (12.6-16.3)
--- NOTE | 2016-06-30 17:35 | PDINTPN ---
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 She grew S. epi from blood cultures and has been getting antibiotics, with the presumed source from her infusiport. Part of her treatment has also been IVF and she developed a worsening oxygen requirement and significant infiltrates on CXR. She was treated with diuretics with good UOP, but her CXR and O2 requirement failed to respond. * PNA- She is improving with a decreasing o2 requirement. No new information from her bronch and no complications. * Bacteremia- Abx include Zithro, Vanco, and Cefepime. * Steroids- agree with stopping * Hx DVT on Coumadin 06/30/16 17:33 Objective: Vital Signs Temp Pulse Resp BP Pulse Ox 36.6 C 80 18 103/56 L 94 06/30/16 16:25 06/30/16 16:25 06/30/16 16:25 06/30/16 16:25 06/30/16 16:25 Microbiology 06/29/16 14:00 Gram Stain - Final Lung Left Upper Lobe - Bronchial Washings 06/29/16 14:00 Gram Stain - Final Lung Left Upper Lobe - Bronchial Washings 06/29/16 14:00 Mycobacterial Smear (RICKY) - Final Lung Left Upper Lobe - Bronchial Washings 06/29/16 14:00 Mycobacterial Smear (RICKY) - Final Lung Left Upper Lobe - Bronchial Washings Laboratory Results 06/30/16 15:00 06/30/16 05:15 06/29/16 06/30/16 07/01/16 05:59 05:59 05:59 Intake Total 2887 2531 750 Output Total 3190 1999 Balance -303 531 750 PT 15.3 SEC (12.0-15.0) H 06/30/16 05:15 INR 1.21 (0.83-1.16) H 06/30/16 05:15 Physical Exam - Physical Exam General Appearance: alert, no apparent distress EENT: PERRL/EOMI Neck: supple Respiratory: lungs clear, normal breath sounds, No respiratory distress Cardiac/Chest: regular rate, rhythm, No edema Abdomen: normal bowel sounds, non-tender, soft, No distended Skin: normal color, warm/dry Lymphatic: no adenopathy Extremities: No pedal edema Neuro/Psych: alert, normal mood/affect, oriented x 3 ICD10 Worksheet Patient Problems: Problems Problem Status Onset Fever and neutropenia Acute
[2016-06-30] MEDS: MIRTAZAPINE 15 MG TAB PO SCH (20:05)
[2016-06-30 20:08] LABS: MISCELLANEOUS TEST See Comments
[2016-06-30 20:19] LABS: POTASSIUM 5.7 mEq/L (3.5-5.2)
[2016-06-30 21:03] LABS: CMVRU RESULT Negative (Negative); CMVRU SPECIMEN SOURCE BRONCH WASH
[2016-06-30] MEDS: VANCOMYCIN 1.5 GM in D5W 250 ML IV SCH (22:26)
[2016-07-01] MEDS: CEFEPIME HCL 2 GM in D5W 100 ML IV SCH ×3 (05:14→21:26)
[2016-07-01 05:34] LABS: ABSOLUTE NRBC COUNT 0.02 10^3/uL (0-0.01); ADD DIFF? YES; ADD MORPH? NO; ATYPICAL LYMPHOCYTE FLAG 0 (0-99); FRAGMENT RBC FLAG 40 (0-99); HEMATOCRIT 24.1 % (38.0-47.0); HEMOGLOBIN 7.9 g/dL (12.6-16.3); IONIZED CALCIUM 1.18 MMOL/L (1.12-1.30); LIPEMIA HEMOLYSIS FLAG 80 (0-99); MEAN CELL HEMOGLOBIN 32.9 pg (27.9-34.1); MEAN CELL HEMOGLOBIN CONCENTR. 32.8 g/dL (32.4-36.7); MEAN CELL VOLUME 100.4 fL (81.5-99.8); MEAN PLATELET VOLUME 11.9 fL (8.7-11.7); NRBC-AUTO% 0.2 % (0.0-0.2); PLATELET CLUMPS FLAG 0 (0-99); PLATELET COUNT 74 10^3/uL (150-400); RED CELL DISTRIBUTION WIDTH 19.2 % (11.5-15.2)
[2016-07-01 05:39] LABS: ADD SCAN? NO; LEFT SHIFT FLG 300 (0-99)
[2016-07-01 05:48] LABS: INR 1.08 (0.83-1.16); PROTIME(PATIENT) 13.9 SEC (12.0-15.0)
[2016-07-01 05:56] LABS: POTASSIUM 5.6 mEq/L (3.5-5.2)
[2016-07-01] MEDS: HYDROCODONE/APAP 5/325 TAB PO PRN ×2 (06:16→18:48)
[2016-07-01 06:25] LABS: LARGE PLATELETS PRESENT; MACROCYTES 1+; MICROCYTES 1+; PLATELET ESTIMATE DECREASED (ADEQ); POLYCHROMASIA 1+; SCHISTOCYTES 1+
[2016-07-01 06:26] LABS: ELLIPTOCYTES 1+; TOXIC GRANULATION PRESENT; TOXIC VACUOLIZATION PRESENT
[2016-07-01 06:27] LABS: GIANT PLATELETS PRESENT
[2016-07-01 06:29] LABS: KERATOCYTES 1+; SPHEROCYTES 1+
[2016-07-01] MEDS: GABAPENTIN 300 MG CAP PO SCH ×2 (09:58→21:31)
[2016-07-01] MEDS: NYSTATIN SUSP 500000 UNIT/5 ML UDCUP PO SCH ×2 (09:58→21:33)
[2016-07-01] MEDS: FLUCONAZOLE 100 MG TAB PO SCH (09:59)
[2016-07-01] MEDS: AZITHROMYCIN IV 500 MG in D5W 250 ML IV SCH (09:59)
[2016-07-01] MEDS: ENOXAPARIN 40 MG/0.4 ML SYR SC SCH (10:03)
--- NOTE | 2016-07-01 13:09 | SOAPPROG ---
SOAP Progress Note Assessment/Plan: Assessment/Plan: 75 yo w metastatic ovarian ca who p/w neutropenic fever and staph sepsis 1. Neutropenic fever - due to Staph likely from central line fevers have resolved ANC improved On Granix appreciate ID input for abx recent blood cultures -ve Would D/C hernandez GOMEZ 2. mucositis - slow to improve cont supportive care advance diet as tolerated 3. Hx of DVT - low dose lovenox for now likely can resume full if plts stay >75k 4. Hypoxemia - on O2; bronch results noted 5. Pancytopenia - 2/2 chemo; counts improving 6. Ovarian ca - metastatic, on Doxil will assess for response soon unknown recent CA 125 07/01/16 13:04 Subjective: Denies acute events Report up and OOB today feeling better denies pain Objective: Vital Signs Temp Pulse Resp BP Pulse Ox 36.5 C 76 16 101/55 L 97 07/01/16 12:04 07/01/16 12:04 07/01/16 12:04 07/01/16 12:04 07/01/16 12:04 Microbiology 06/29/16 14:00 Gram Stain - Final Lung Left Upper Lobe - Bronchial Washings Bronchial Washings Culture - Final 06/29/16 14:00 Gram Stain - Final Lung Left Upper Lobe - Bronchial Washings Bronchial Washings Culture - Final 06/29/16 14:00 Mycobacterial Smear (RICKY) - Final Lung Left Upper Lobe - Bronchial Washings 06/29/16 14:00 Mycobacterial Smear (RICKY) - Final Lung Left Upper Lobe - Bronchial Washings Laboratory Results 07/01/16 05:00 07/01/16 05:00 06/30/16 07/01/16 07/02/16 05:59 05:59 05:59 Intake Total 2531 1200 Output Total 2000 850 Balance 531 350 PT 13.9 SEC (12.0-15.0) 07/01/16 05:00 INR 1.08 (0.83-1.16) 07/01/16 05:00 Gen - fatigues appearing but non-toxic HEENT - grade 1to2 mucositis CV - RRR Lungs - CTA Abd - soft, NT/ND, BS+ Ext - edema bilaterally Neuro - nonfocal Skin - left breast mass not examined today ICD10 Worksheet Patient Problems: Problems Problem Status Onset Fever and neutropenia Acute
--- NOTE | 2016-07-01 14:53 | PCMIDPN ---
Assessment/Plan: Assessment/Plan: 1. CoNS bacteremia: -likely source is port -Currently on Vanco. Vanco trough 7.9 from 06/28/16. - f/u blood cx from 06/26 ngtd -creatinine 0.5 -plan for at least 2 weeks therap- -reviewed results with patient. 2. Oral ulcers: new -i swabbed mouth for HSV pcr. -will start acyclovir empirically for now -plan of care reivewed with patient. 3. Pneumonia: - multiple studies done which are unrevealing as to cause: cmv blood/bronch neg , aspergillus neg, crypto neg, flu neg -RVP pending - Currently on empiric coverage with Cefepime D#7 and Azithro D# 4. Plan short course of therapy as long as patient continues to improve and remains afebrile with stable counts. 4. Febrile Neutrapenia: - resolved. meds vanco 1.5 daily- D# 6/14 cefepime 2g q8-#7 Azithro 500mg daily- 06/28/16- D#4 Subjective: Afebrile. Last fever spike was on 06/28/16. Breathing easy. Occasionally confused /disoriented. Denies sob. c/o mouth pain and is having hard time eating. Denies diarrhea, abd pain. Objective: Vital Signs Temp Pulse Resp BP Pulse Ox 36.5 C 76 16 101/55 L 97 07/01/16 12:04 07/01/16 12:04 07/01/16 12:04 07/01/16 12:04 07/01/16 12:04 Microbiology 06/29/16 14:00 Gram Stain - Final Lung Left Upper Lobe - Bronchial Washings Bronchial Washings Culture - Final 06/29/16 14:00 Gram Stain - Final Lung Left Upper Lobe - Bronchial Washings Bronchial Washings Culture - Final 06/29/16 14:00 Mycobacterial Smear (RICKY) - Final Lung Left Upper Lobe - Bronchial Washings 06/29/16 14:00 Mycobacterial Smear (RICKY) - Final Lung Left Upper Lobe - Bronchial Washings Laboratory Results 07/01/16 05:00 07/01/16 05:00 06/30/16 07/01/16 07/02/16 05:59 05:59 05:59 Intake Total 2531 1200 Output Total 2000 850 Balance 531 350 - Physical Exam General Appearance: alert, no apparent distress EENT: other (oral ulcers noted on buccal mucosa) Respiratory: coarse breath sounds (mild) Cardiac/Chest: regular rate, rhythm Extremities: No swelling Abdomen: normal bowel sounds, non-tender, soft, No distended Skin: No rash ICD10 Worksheet Patient Problems: Problems Problem Status Onset Fever and neutropenia Acute
--- NOTE | 2016-07-01 14:58 | HOSPPROG ---
Hospitalist Progress Note Assessment/Plan: 75 yo f w metastatic CA here w respiratory failure resp failure - improved 02 requirements BAL w some mucus, no blood initial micro unrevealing - cont abx, hold further diuresis given lack of change in cxr despite bnp 2650-> 350 w diuresis although volume overload not clearly the cause of this yesterday's bronch appearance not c/w vol overload given normal (albeit low quality) echo, and lack of improvement, I suspect volume overload not major player in pulm process ON vanc cefepime azithro dc steroids today given absence of wheezing or clear inflammatory process pulm infiltrates/pleural effusions - treating as pulm edema; certainly other considerations - cont broad spectrum abx and steroids - add azith today as above small PE/hx DVT - start low dose lovenox; caution given thrombocytopenia - wait on starting warfarin given her low plts platelets stably low suspect we can start full dose anticoag in coming days mucusitis: interfering w eating stop TPN counts improving continue magic mouthwash treat thrush sacral blister - hernandez placed; discussed with Dr Linda Basurto chest wall wound - wound care staph epi bacteremia - vanc, follow repeat cx's, ID consult - she has a port, will need decision regarding this based on repeat BCx's repeat blood cx 06/23 NGTD febrile neutropenia - cont vanc/cefepime per ID pancytopenia - d/t chemo metastatic ovarian cancer - last chemo 06/06 risk: high Subjective: case d/w ashlee up and gabe. feels better Objective: Vital Signs Temp Pulse Resp BP Pulse Ox 36.5 C 76 16 101/55 L 97 07/01/16 12:04 07/01/16 12:04 07/01/16 12:04 07/01/16 12:04 07/01/16 12:04 Microbiology 06/29/16 14:00 Gram Stain - Final Lung Left Upper Lobe - Bronchial Washings Bronchial Washings Culture - Final 06/29/16 14:00 Gram Stain - Final Lung Left Upper Lobe - Bronchial Washings Bronchial Washings Culture - Final 06/29/16 14:00 Mycobacterial Smear (RICKY) - Final Lung Left Upper Lobe - Bronchial Washings 06/29/16 14:00 Mycobacterial Smear (RICKY) - Final Lung Left Upper Lobe - Bronchial Washings Laboratory Results 07/01/16 05:00 07/01/16 05:00 06/30/16 07/01/16 07/02/16 05:59 05:59 05:59 Intake Total 2531 1200 Output Total 2000 850 Balance 531 350 PT 13.9 SEC (12.0-15.0) 07/01/16 05:00 INR 1.08 (0.83-1.16) 07/01/16 05:00 - Physical Exam Constitutional: no apparent distress, appears nourished Eyes: PERRL, anicteric sclera Ears, Nose, Mouth, Throat: moist mucous membranes, hearing normal Cardiovascular: regular rate and rhythym, no murmur, rub, or gallop, systolic murmur Respiratory: no respiratory distress, no rales or rhonchi, other (good air movemnt, scattered rhonchi) Gastrointestinal: normoactive bowel sounds, soft, non-tender abdomen Genitourinary: No hernandez in urethra Skin: warm, normal color Musculoskeletal: full muscle strength, no muscle tenderness Neurologic: AAOx3 Psychiatric: interacting appropriately ICD10 Worksheet Patient Problems: Problems Problem Status Onset Fever and neutropenia Acute
[2016-07-01] MEDS: ACYCLOVIR 400 MG TAB PO SCH ×3 (15:50→21:31)
[2016-07-01] MEDS: MUPIROCIN 2% 22 GM OINT TP SCH ×2 (16:56→21:30)
[2016-07-01] MEDS: MBX SOLN 30 ML BOTTLE PO PRN ×2 (18:50→22:00)
[2016-07-01] MEDS: MIRTAZAPINE 15 MG TAB PO SCH (21:32)
[2016-07-01] MEDS: VANCOMYCIN 1.5 GM in D5W 250 ML IV SCH (22:07)
[2016-07-02 02:59] LABS: ADD DIFF? YES; ADD MORPH? NO; ATYPICAL LYMPHOCYTE FLAG 0 (0-99); FRAGMENT RBC FLAG 40 (0-99); HEMOGLOBIN 8.5 g/dL (12.6-16.3); IONIZED CALCIUM 1.18 MMOL/L (1.12-1.30); LIPEMIA HEMOLYSIS FLAG 80 (0-99); MEAN CELL HEMOGLOBIN 32.8 pg (27.9-34.1); MEAN CELL HEMOGLOBIN CONCENTR. 32.7 g/dL (32.4-36.7); MEAN CELL VOLUME 100.4 fL (81.5-99.8); NRBC-AUTO% 0.8 % (0.0-0.2); PLATELET CLUMPS FLAG 10 (0-99); PLATELET COUNT 108 10^3/uL (150-400); RED BLOOD CELL COUNT 2.59 10^6/uL (4.18-5.33); RED CELL DISTRIBUTION WIDTH 19.5 % (11.5-15.2)
[2016-07-02 03:03] LABS: LEFT SHIFT FLG 300 (0-99)
[2016-07-02 03:04] LABS: ADD SCAN? NO
[2016-07-02 03:13] LABS: INR 1.09 (0.83-1.16)
[2016-07-02 03:39] LABS: HYPOCHROMIA 1+; MACROCYTES 2+; MICROCYTES 1+; PLATELET ESTIMATE DECREASED (ADEQ); POLYCHROMASIA 1+; TOXIC GRANULATION PRESENT; TOXIC VACUOLIZATION PRESENT
[2016-07-02] MEDS: CEFEPIME HCL 2 GM in D5W 100 ML IV SCH (05:25)
[2016-07-02] MEDS: NYSTATIN SUSP 500000 UNIT/5 ML UDCUP PO SCH ×3 (09:30→20:32)
[2016-07-02] MEDS: FLUCONAZOLE 100 MG TAB PO SCH ×2 (09:30→11:50)
[2016-07-02] MEDS: ACYCLOVIR 400 MG TAB PO SCH ×2 (09:30→11:51)
[2016-07-02] MEDS: AZITHROMYCIN IV 500 MG in D5W 250 ML IV SCH ×2 (09:31→11:49)
[2016-07-02] MEDS: GABAPENTIN 300 MG CAP PO SCH ×3 (09:31→20:31)
[2016-07-02] MEDS: ENOXAPARIN 40 MG/0.4 ML SYR SC SCH ×2 (09:31→11:50)
[2016-07-02] MEDS ORDERED: NS 1,000 ML IV ONE ×2 (09:54→15:44)
--- NOTE | 2016-07-02 09:54 | HOSPPROG ---
Hospitalist Progress Note Assessment/Plan: 75 yo f w metastatic CA here w respiratory failure tachycardia: concerning for pe has been on proph CTA 06/27 showed equivocal small subsegmental PE felt chronic has been on prophylactic doses as opposed to treatment doses given low platelets now improved this represents new sx 1. stat CTA of chest 2. stat ekg 3. bolus 1 L NS 4. non focal neuro exam so low suspicion of neurologic process 5. will give 60 mg lovenox now resp failure - improved 02 requirements BAL w some mucus, no blood initial micro unrevealing - cont abx, hold further diuresis given lack of change in cxr despite bnp 2650-> 350 w diuresis although volume overload not clearly the cause of this yesterday's bronch appearance not c/w vol overload given normal (albeit low quality) echo, and lack of improvement, I suspect volume overload not major player in pulm process ON vanc cefepime azithro dc steroids today given absence of wheezing or clear inflammatory process pulm infiltrates/pleural effusions - treating as pulm edema; certainly other considerations - cont broad spectrum abx and steroids - add azith today as above small PE/hx DVT - start low dose lovenox; caution given thrombocytopenia - wait on starting warfarin given her low plts platelets stably low suspect we can start full dose anticoag in coming days mucusitis: interfering w eating stop TPN counts improving continue magic mouthwash treat thrush sacral blister - hernandez placed; discussed with Dr Linda Basurto chest wall wound - wound care staph epi bacteremia - vanc, follow repeat cx's, ID consult - she has a port, will need decision regarding this based on repeat BCx's repeat blood cx 06/23 NGTD febrile neutropenia - cont vanc/cefepime per ID pancytopenia - d/t chemo metastatic ovarian cancer - last chemo 06/06 risk: high Subjective: ctsp for somnolence, tachycardia, tachypnea Objective: Vital Signs Temp Pulse Resp BP Pulse Ox 37.1 C 102 H 16 120/57 L 91 L 07/02/16 08:22 07/02/16 08:22 07/02/16 02:47 07/02/16 08:22 07/02/16 08:22 Microbiology 06/26/16 20:25 Blood Culture - Final Blood 06/26/16 20:25 Blood Culture - Final Blood 06/29/16 14:00 Gram Stain - Final Lung Left Upper Lobe - Bronchial Washings Bronchial Washings Culture - Final 06/29/16 14:00 Gram Stain - Final Lung Left Upper Lobe - Bronchial Washings Bronchial Washings Culture - Final Laboratory Results 07/02/16 02:50 07/01/16 05:00 07/01/16 07/02/16 07/03/16 05:59 05:59 05:59 Intake Total 1200 1750 Output Total 850 700 450 Balance 350 1050 -450 PT 14.0 SEC (12.0-15.0) 07/02/16 02:50 INR 1.09 (0.83-1.16) 07/02/16 02:50 - Physical Exam Constitutional: other (tachycpneic) Eyes: PERRL, anicteric sclera Ears, Nose, Mouth, Throat: moist mucous membranes, hearing normal Cardiovascular: tachycardia, No systolic murmur Respiratory: other (tachypneic, clear to auscultation) Gastrointestinal: normoactive bowel sounds, soft, non-tender abdomen, No guarding, No rebound Genitourinary: No hernandez in urethra Skin: warm, normal color Musculoskeletal: full muscle strength, no muscle tenderness Neurologic: AAOx3, other (symmetric movement, CN intact) Psychiatric: interacting appropriately ICD10 Worksheet Patient Problems: Problems Problem Status Onset Fever and neutropenia Acute
[2016-07-02] MEDS ORDERED: ENOXAPARIN 60 MG/0.6 ML SYR SC ONE (09:56)
--- NOTE | 2016-07-02 10:12 | CPEKG ---
Heart Rate: 127 RR Interval: 472 P-R Interval: 168 QRSD Interval: 78 QT Interval: 284 QTC Interval: 413 P Sabael: 51 QRS Sabael: -40 T Wave Sabael: 97 EKG Severity - ABNORMAL ECG - EKG Impression: SINUS TACHYCARDIA EKG Impression: INFERIOR INFARCT, OLD Electronically Signed By: Rubio Cruz 03-Jul-2016 08:41:40
[2016-07-02 10:28] LABS: ANION GAP 12 mEq/L (8-16); CALCIUM 8.4 mg/dL (8.5-10.4); CARBON DIOXIDE 23 mEq/l (22-31); CHLORIDE 104 mEq/L (97-110); CREATININE 0.6 mg/dL (0.6-1.0); GLOMERULAR FILTRATION RATE > 60; GLUCOSE 68 mg/dL (70-100); POTASSIUM 4.6 mEq/L (3.5-5.2); SODIUM 139 mEq/L (134-144)
[2016-07-02] MEDS ORDERED: IOPAMIDOL (ISOVUE 370) 100 ML BTL IV ONE (10:33)
--- NOTE | 2016-07-02 11:39 | PDINTPN ---
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 She grew S. epi from blood cultures and has been getting antibiotics, with the presumed source from her infusiport. Part of her treatment has also been IVF and she developed a worsening oxygen requirement and significant infiltrates on CXR. She was treated with diuretics with good UOP, but her CXR and O2 requirement failed to respond. She underwent BAL 06/29 to rule out opportunistic pathogens, and all cultures have been negative to date. She was transferred to the floor where she remained stable, but devloped tachycardia to the 130's 07/02 so was transferred back to the ICU. She was reportedly more somnolent and confused with increased RR as well. On arrival in the ICU her HR was 115 and oxygen saturation 100% on 2 lpm. She readily recognized me and denied discomfort. * Tahcycardia- she was also found to have a Tm of 102.0 in the ICU and has a WBC of 12. Her Filgastim was dc'd several days ago. A CTA shows no change in her infiltrates and no PE by my view, though the official reading is still pending (She was on Lovenox). Her EKG shows sinus tach. Her fever may explain her HR- I would suggest re-culture including sputum, blood, and urine. Consider a fluid bolus/drip as well, though her i/o have been even the last few days. * PNA- O2 requirements remain low. No role for repeat bronchoscopy. Remains on Cefepime and Azithromycin and Vanco. Fluconazole was previously added for refractory thrush. CMV, Galactomannan, were negative. * Bacteremia- Abx include Zithro, Vanco, and Cefepime. * Hx DVT on Coumadin Objective: Vital Signs Temp Pulse Resp BP Pulse Ox 37.6 C 133 H 32 H 126/77 H 88 L 07/02/16 09:51 07/02/16 09:51 07/02/16 09:51 07/02/16 09:51 07/02/16 09:51 Microbiology 06/26/16 20:25 Blood Culture - Final Blood 06/26/16 20:25 Blood Culture - Final Blood 06/29/16 14:00 Gram Stain - Final Lung Left Upper Lobe - Bronchial Washings Bronchial Washings Culture - Final 06/29/16 14:00 Gram Stain - Final Lung Left Upper Lobe - Bronchial Washings Bronchial Washings Culture - Final Laboratory Results 07/02/16 02:50 07/02/16 10:00 07/01/16 07/02/16 07/03/16 05:59 05:59 05:59 Intake Total 1200 1750 Output Total 850 700 450 Balance 350 1050 -450 PT 14.0 SEC (12.0-15.0) 07/02/16 02:50 INR 1.09 (0.83-1.16) 07/02/16 02:50 Physical Exam - Physical Exam General Appearance: no apparent distress, other (somnolent) EENT: PERRL/EOMI Neck: supple Respiratory: lungs clear, normal breath sounds, No respiratory distress, No rales, No rhonchi Cardiac/Chest: normal peripheral pulses, regular rate, rhythm, tachycardia Abdomen: normal bowel sounds, non-tender, soft, No distended Skin: normal color, warm/dry, No cyanosis Lymphatic: no adenopathy Extremities: normal range of motion, No pedal edema Neuro/Psych: cognition abnormalities (somnolent but easily arousable) ICD10 Worksheet Patient Problems: Problems Problem Status Onset Fever and neutropenia Acute
[2016-07-02] MEDS: MUPIROCIN 2% 22 GM OINT TP SCH (12:48)
--- NOTE | 2016-07-02 13:23 | PCMIDPN ---
Assessment/Plan: Assessment/Plan: 1. FEvers: new - new fevers after a period of being afebrile. -CT chest neg for PE -recheck blood cx in port,peripheral vein -Will recheck CMV PCR. -Broaden antbx to merem. Continue vanco. Continue acyclovir and fluconazole. change to IV. -Overall care coordinated with hospitalist team, hem/onc, RN, -discussed plan of care, futher work up at length with patient, family at bedside. 2. CoNS bacteremia: -likely source is port -Currently on Vanco. Vanco trough 7.9 from 06/28/16. check f/u trough tonight - f/u blood cx from 06/26 ngtd -creatinine 0.5 -plan for at least 2 weeks therap- -reviewed results with patient. 3. Oral ulcers: new - HSV pcr:pending -change acyclovir to IV given not taking in orals -recheck CMV PCR in blood. -Consider EGD to further evaluate if not improving and stable. -change to merem for additional oral anaerobic coverage given mucosal breakdown 4. Pneumonia: - multiple studies done which are unrevealing as to cause: cmv blood/bronch neg , aspergillus neg, crypto neg, flu neg -RVP pending - Currently on empiric coverage with Cefepime D#8 and Azithro D# 5. will d/c azithro. -Ct chest done today: neg for PE. images reviewed. pulm edema vs pneumonia. -Change cefepime to merem for broader coverage 5. Thrush -on fluconazole. 6. Neutrapenia: - resolved. meds vanco 1.5 daily- D# 7/ cefepime 2g q8-#8 (stopped 07/02/16) Azithro 500mg daily- 06/28/16- D#5 (stopped 07/02/16) Subjective: Spiking temps today with tachycardia. Back in sdu. DEnies increasing short of breath. having cough. occ productive. denies abd pain, nausea, diarrhea. continues with oral and throat pain with painful swallowing. Objective: Vital Signs Temp Pulse Resp BP Pulse Ox 38.6 C H 117 H 22 H 114/56 L 100 07/02/16 12:45 07/02/16 12:45 07/02/16 12:45 07/02/16 12:45 07/02/16 12:45 Microbiology 06/26/16 20:25 Blood Culture - Final Blood 06/26/16 20:25 Blood Culture - Final Blood 06/29/16 14:00 Gram Stain - Final Lung Left Upper Lobe - Bronchial Washings Bronchial Washings Culture - Final 06/29/16 14:00 Gram Stain - Final Lung Left Upper Lobe - Bronchial Washings Bronchial Washings Culture - Final Laboratory Results 07/02/16 02:50 07/02/16 10:00 07/01/16 07/02/16 07/03/16 05:59 05:59 05:59 Intake Total 1200 1750 Output Total 887 224 6509 Balance 350 1050 -1000 - Physical Exam General Appearance: alert, no apparent distress Respiratory: coarse breath sounds (mild) Neck: non-tender Cardiac/Chest: regular rate, rhythm, other (port:nontender. no surrounding erythema) Extremities: No swelling Abdomen: normal bowel sounds, non-tender, soft, No distended Skin: No erythema - Time Spent With Patient Time Spent with Patient: greater than 35 minutes Time Spent with Patient: Greater than 35 minutes spent on this patients care, greater than 50% of time spent counseling, educating, and coordinating care regarding the above mentioned plan. ICD10 Worksheet Patient Problems: Problems Problem Status Onset Fever and neutropenia Acute
--- NOTE | 2016-07-02 13:43 | SOAPPROG ---
SOAP Progress Note Assessment/Plan: Assessment/Plan: 75 yo w metastatic ovarian ca who p/w neutropenic fever and staph sepsis 1. Neutropenic fever - due to Staph likely from central line fevers have recurred; appreciate ID input Acyclovir added ANC improved Off Granix recent blood cultures -ve 2. mucositis - slow to improve cont supportive care Swabbed and sent for Cx 3. Hx of DVT - coumadin 4. Hypoxemia - on O2; bronch results noted 5. Pancytopenia - 2/2 chemo; counts improving 6. Ovarian ca - metastatic, on Doxil will assess for response soon unknown recent CA 125 07/02/16 13:41 Subjective: Back in step down unit due to tachycardia/fevers Objective: Vital Signs Temp Pulse Resp BP Pulse Ox 38.6 C H 117 H 22 H 114/56 L 100 07/02/16 12:45 07/02/16 12:45 07/02/16 12:45 07/02/16 12:45 07/02/16 12:45 Microbiology 06/26/16 20:25 Blood Culture - Final Blood 06/26/16 20:25 Blood Culture - Final Blood 06/29/16 14:00 Gram Stain - Final Lung Left Upper Lobe - Bronchial Washings Bronchial Washings Culture - Final 06/29/16 14:00 Gram Stain - Final Lung Left Upper Lobe - Bronchial Washings Bronchial Washings Culture - Final Laboratory Results 07/02/16 02:50 07/02/16 10:00 07/01/16 07/02/16 07/03/16 05:59 05:59 05:59 Intake Total 1200 1750 Output Total 696 692 7947 Balance 350 1050 -1000 PT 14.0 SEC (12.0-15.0) 07/02/16 02:50 INR 1.09 (0.83-1.16) 07/02/16 02:50 Gen -asleep, NAD CV - tachy Resp - CTA anteriorly Abd - soft, BS+ Ext - edema noted Neuro - did not assess, asleep ICD10 Worksheet Patient Problems: Problems Problem Status Onset Fever and neutropenia Acute
[2016-07-02] MEDS: D5W IV SCH ×2 (14:28→21:40)
[2016-07-02] MEDS: ACYCLOVIR IV SCH ×2 (14:28→21:40)
[2016-07-02] MEDS ORDERED: FLUCONAZOLE/NaCl 100 ML IV SCH (15:00)
[2016-07-02] MEDS: MEROPENEM 1 GM in NS 100 ML IV SCH ×2 (15:37→20:32)
[2016-07-02] MEDS: ALBUMIN 25% 100 ML IV SCH ×2 (16:18→18:04)
[2016-07-02] MEDS: FLUCONAZOLE/NaCl 100 ML IV SCH (16:31)
[2016-07-02] MEDS: MIRTAZAPINE 15 MG TAB PO SCH (20:31)
[2016-07-02] MEDS: WARFARIN SODIUM 2.5 MG TAB PO SCH (20:32)
[2016-07-02] MEDS: VANCOMYCIN 1.5 GM in D5W 250 ML IV SCH (22:41)
[2016-07-03] MEDS: ALBUMIN 25% 100 ML IV SCH ×3 (00:33→12:48)
[2016-07-03] MEDS: ACETAMINOPHEN 325 MG TAB PO PRN ×2 (04:39→19:32)
[2016-07-03 05:19] LABS: IONIZED CALCIUM 1.11 MMOL/L (1.12-1.30)
[2016-07-03 05:21] LABS: ABSOLUTE NRBC COUNT 0.13 10^3/uL (0-0.01); ADD DIFF? YES; ADD MORPH? YES; ADD SCAN? YES; ATYPICAL LYMPHOCYTE FLAG 0 (0-99); FRAGMENT RBC FLAG 40 (0-99); HEMATOCRIT 22.1 % (38.0-47.0); HEMOGLOBIN 7.3 g/dL (12.6-16.3); LIPEMIA HEMOLYSIS FLAG 80 (0-99); MEAN CELL HEMOGLOBIN 32.7 pg (27.9-34.1); MEAN CELL VOLUME 99.1 fL (81.5-99.8); PLATELET CLUMPS FLAG 10 (0-99); PLATELET COUNT 111 10^3/uL (150-400); RED BLOOD CELL COUNT 2.23 10^6/uL (4.18-5.33); RED CELL DISTRIBUTION WIDTH 19.6 % (11.5-15.2)
[2016-07-03 05:23] LABS: LEFT SHIFT FLG 290 (0-99); NRBC-AUTO% 1.4 % (0.0-0.2)
[2016-07-03 05:29] LABS: INR 1.25 (0.83-1.16); PROTIME(PATIENT) 15.7 SEC (12.0-15.0)
[2016-07-03 05:30] LABS: APTT 31.4 SEC (23.0-38.0)
[2016-07-03 05:36] LABS: ALANINE AMINOTRANSFERASE 33 IU/L (9-52); ALBUMIN 3.5 g/dL (3.5-5.0); ALKALINE PHOSPHATASE 92 IU/L (38-126); ANION GAP 12 mEq/L (8-16); ASPARTATE AMINOTRANSFERASE 47 IU/L (14-46); BILIRUBIN,TOTAL 1.2 mg/dL (0.1-1.4); CALCIUM 8.4 mg/dL (8.5-10.4); CARBON DIOXIDE 23 mEq/l (22-31); CHLORIDE 106 mEq/L (97-110); CREATININE 0.6 mg/dL (0.6-1.0); GLOMERULAR FILTRATION RATE > 60; GLUCOSE 68 mg/dL (70-100); MAGNESIUM 1.9 mg/dL (1.6-2.3); POTASSIUM 3.3 mEq/L (3.5-5.2); SODIUM 141 mEq/L (134-144); TOTAL PROTEIN 5.4 g/dL (6.3-8.2); TRIGLYCERIDE 171 mg/dL (35-135)
[2016-07-03 05:53] LABS: HYPOCHROMIA 1+; MACROCYTES 1+; MICROCYTES 1+
[2016-07-03 05:54] LABS: PLATELET ESTIMATE ADEQUATE (ADEQ); SCAN POSITIVE
[2016-07-03] MEDS: ACYCLOVIR IV SCH ×3 (05:56→21:18)
[2016-07-03] MEDS: D5W IV SCH ×3 (05:56→21:18)
[2016-07-03] MEDS ORDERED: PROTOCOL POTASSIUM 1 DOSE MISC PRN (06:17)
[2016-07-03] MEDS ORDERED: POTASSIUM CL 10 MEQ TAB PO ONE ×2 (07:30→19:51)
[2016-07-03] MEDS: MEROPENEM 1 GM in NS 100 ML IV SCH ×3 (07:31→22:29)
[2016-07-03] MEDS: FLUCONAZOLE/NaCl 100 ML IV SCH (09:02)
[2016-07-03] MEDS: NYSTATIN SUSP 500000 UNIT/5 ML UDCUP PO SCH ×2 (09:04→20:01)
[2016-07-03] MEDS: GABAPENTIN 300 MG CAP PO SCH ×2 (09:04→20:01)
[2016-07-03] MEDS: MBX SOLN 30 ML BOTTLE PO PRN ×2 (09:05→12:45)
--- NOTE | 2016-07-03 11:07 | PCMIDPN ---
Assessment/Plan: Assessment/Plan: * Neutropenic fever with associated coagulase-negative Staph bacteremia which is likely port related: Repeat cultures no growth. Will change vancomycin to 1.25g IV Q 24 hours based on current trough as likely to continue to show accumulation. * Pulmonary infiltrates: Pneumocystis cytology negative and cytology negative for malignant cells. No defined etiology. Covered with current antibiotic therapy. Overall pulmonary status has improved. * Fever: Febrile over last 2 days with repeat blood cultures pending and cefepime changed to meropenem empirically. CT of chest shows persistent pulmonary infiltrates. Potentially could be related to mucositis which is quite marked. Continue to follow cultures with empiric antibiotics. If persistent, consider CT scan of abdomen and pelvis with recovery of neutrophils although abdominal exam is nontender. * Mucositis: Await HSV and CMV PCR. Continue acyclovir and fluconazole. 07/03/16 11:03 Subjective: Patient feels clinically improved. No cough or shortness of breath. No fever this a.m.. Objective: Vital Signs Temp Pulse Resp BP Pulse Ox 36.7 C 97 24 H 107/60 93 07/03/16 08:00 07/03/16 08:00 07/03/16 08:00 07/03/16 08:00 07/03/16 08:00 Microbiology 06/26/16 20:25 Blood Culture - Final Blood 06/26/16 20:25 Blood Culture - Final Blood Laboratory Results 07/03/16 05:10 07/03/16 05:10 07/02/16 07/03/16 07/04/16 05:59 05:59 05:59 Intake Total 1750 2650 Output Total 700 3125 Balance 1050 -475 Meropenem # 2 (status post cefepime and azithromycin) Vancomycin # 8/14 Acyclovir # 2 Fluconazole # 2 Pneumocystis stain negative; cytology negative for malignancy on BAL (verbal report) Laboratory Tests 07/02/16 20:45 Vancomycin Trough 18.2 - Physical Exam General Appearance: alert, no apparent distress EENT: other (Diffuse mucositis present), No scleral icterus Respiratory: crackles (Right base), other (Port nontender without erythema), No respiratory distress Cardiac/Chest: regular rate, rhythm Extremities: pedal edema Abdomen: non-tender, No distended Skin: No rash ICD10 Worksheet Patient Problems: Problems Problem Status Onset Fever and neutropenia Acute
[2016-07-03] MEDS: MUPIROCIN 2% 22 GM OINT TP SCH (12:53)
--- NOTE | 2016-07-03 13:21 | HOSPPROG ---
Hospitalist Progress Note Assessment/Plan: 75 yo f w metastatic CA here w respiratory failure tachycardia: PE workup neg subsequently spiked fever tachycardia has tracked w fevers diarrhea: chec cdiff no peritoneal signs resp failure - improved 02 requirements BAL w some mucus, no blood initial micro unrevealing - cont abx, hold further diuresis given lack of change in cxr despite bnp 2650-> 350 w diuresis although volume overload not clearly the cause of this yesterday's bronch appearance not c/w vol overload given normal (albeit low quality) echo, and lack of improvement, I suspect volume overload not major player in pulm process ON vanc meropenem azithro dc steroids today given absence of wheezing or clear inflammatory process pulm infiltrates/pleural effusions - treating as pulm edema; certainly other considerations - cont broad spectrum abx and steroids - add azith today as above small PE/hx DVT - start low dose lovenox; caution given thrombocytopenia on warfarin no new PE continue prophylactic enox and warfarin (decreased hct noted) albumin therapy: ? stop mucusitis: interfering w eating stop TPN counts improving continue magic mouthwash treat thrush sacral blister - hernandez placed; discussed with Dr Linda Basurto chest wall wound - wound care staph epi bacteremia - vanc, follow repeat cx's, ID consult - she has a port, will need decision regarding this based on repeat BCx's repeat blood cx 06/23 NGTD febrile neutropenia - cont vanc/cefepime per ID pancytopenia - d/t chemo metastatic ovarian cancer - last chemo 06/06 risk: high Subjective: case d/w [place]. tele: sinus tacH (interp by me). febrile. 3 episodes diarrhea im 45 minutes Objective: Vital Signs Temp Pulse Resp BP Pulse Ox 36.5 C 95 17 110/52 L 93 07/03/16 12:00 07/03/16 12:00 07/03/16 12:00 07/03/16 12:00 07/03/16 12:00 Microbiology 06/26/16 20:25 Blood Culture - Final Blood 06/26/16 20:25 Blood Culture - Final Blood Laboratory Results 07/03/16 05:10 07/03/16 05:10 07/02/16 07/03/16 07/04/16 05:59 05:59 05:59 Intake Total 1750 2650 Output Total 700 3125 Balance 1050 -475 PT 15.7 SEC (12.0-15.0) H 07/03/16 05:10 INR 1.25 (0.83-1.16) H 07/03/16 05:10 - Physical Exam Constitutional: no apparent distress, appears nourished Eyes: PERRL, anicteric sclera Ears, Nose, Mouth, Throat: moist mucous membranes, hearing normal Cardiovascular: regular rate and rhythym, no murmur, rub, or gallop, No tachycardia Respiratory: no respiratory distress, no rales or rhonchi Gastrointestinal: normoactive bowel sounds, soft, non-tender abdomen, No guarding, No rebound Genitourinary: no bladder fullness, No hernandez in urethra Skin: warm, normal color Musculoskeletal: no muscle tenderness, No full muscle strength Neurologic: AAOx3, sensation intact bilaterally Psychiatric: interacting appropriately, not anxious Lymph, Heme, Immunologic: no cervical LAD ICD10 Worksheet Patient Problems: Problems Problem Status Onset Fever and neutropenia Acute
--- NOTE | 2016-07-03 13:22 | PDINTPN ---
Swatch Checker Progress Note Assessment/Plan: Assessment: 75 F with metastatic ovarian cancer admitted 06/24 with neutropenic fever following chemotherapy 2-3 weeks [employer]. She grew S. epi from blood cultures and has been getting antibiotics, with the presumed source from her infusiport. Part of her treatment has also been IVF and she developed a worsening oxygen requirement and significant infiltrates on CXR. She was treated with diuretics with good UOP, but her CXR and O2 requirement failed to respond. She underwent BAL 06/29 to rule out opportunistic pathogens, and all cultures have been negative to date. She was transferred to the floor where she remained stable, but devloped tachycardia to the 130's 07/02 so was transferred back to the ICU. She was reportedly more somnolent and confused with increased RR as well. On arrival in the ICU her HR was 115 and oxygen saturation 100% on 2 lpm. She readily recognized me and denied discomfort. * Tahcycardia- Improved, HR 90s-100s. * PNA- New problem to vt 07/03. O2 requirements remain low. No longer neutropenic. No role for repeat bronchoscopy. Remains on Cefepime and Azithromycin and Vanco. Fluconazole was previously added for refractory thrush. * Pleural effusions: New problem to vt 07/03. Likely related to effusion and fluid rescusitation. * Mucositis: Has prevented PO> Improving, patient able to take PO today for the first time in a few weeks * Bacteremia- Abx include Zithro, Vanco, and Cefepime. * Hx DVT on Coumadin * Anemia: Hgb down today. * Thrombocytopenia: Up slightly today. Plan:Diet as tolerated. Continue antibiotics. Increase activity. Await, CMV studies. Follow Hgb, Plt. 07/03/16 13:40 Subjective: Feels better, stronger. Oral pain improved, able to take PO. Objective: Vital Signs Temp Pulse Resp BP Pulse Ox 36.5 C 95 17 110/52 L 93 07/03/16 12:00 07/03/16 12:00 07/03/16 12:00 07/03/16 12:00 07/03/16 12:00 Microbiology 06/26/16 20:25 Blood Culture - Final Blood 06/26/16 20:25 Blood Culture - Final Blood Laboratory Results 07/03/16 05:10 07/03/16 05:10 0407/03/16 07/04/16 05:59 05:59 05:59 Intake Total 1750 2650 Output Total 700 3125 Balance 1050 -475 PT 15.7 SEC (12.0-15.0) H 07/03/16 05:10 INR 1.25 (0.83-1.16) H 07/03/16 05:10 CT 07/02: Patchy upper-lobe predominant alveolar infiltrates. Small right, moderate left effusion. No PE. Images reviewed. Physical Exam - Physical Exam General Appearance: alert, no apparent distress EENT: other (mucositis) Neck: normal inspection Respiratory: lungs clear, normal breath sounds Cardiac/Chest: regular rate, rhythm, edema (1+) Abdomen: normal bowel sounds, non-tender Skin: normal color, warm/dry Extremities: normal inspection Neuro/Psych: alert, normal mood/affect, No motor weakness ICD10 Worksheet Patient Problems: Problems Problem Status Onset Fever and neutropenia Acute
--- NOTE | 2016-07-03 19:17 | SOAPPROG ---
SOAP Progress Note Assessment/Plan: Assessment: Assessment/Plan: 75 yo w metastatic ovarian ca who p/w neutropenic fever and staph sepsis 1. Fever - due to Staph likely from central line fevers have recurred; appreciate ID input Acyclovir added ANC improved Off Granix recent blood cultures -ve 2. mucositis - slow to improve cont supportive care Swabbed and sent for Cx 3. Hx of DVT - coumadin 4. Hypoxemia - on O2; bronch results noted 5. Pancytopenia - 2/2 chemo; counts improving 6. Ovarian ca - metastatic, on Doxil - she has had 3 doses of Doxil (last one given on 06/09/16). CA125 was 806 after 2 doses (down slightly). It often takes 3 -4 doses of Doxil to see a definite response. I ordered another CA125 today. Plan: - Check CA 125 - Continue medical care as you are doing - Due for next dose of Doxil on 07/07/16, but will hold for now Will follow along with you. Subjective: Mouth sores healing slowly Objective: Vital Signs Temp Pulse Resp BP Pulse Ox 37.8 C 89 23 H 131/60 H 97 07/03/16 16:00 07/03/16 16:00 07/03/16 16:00 07/03/16 16:00 07/03/16 16:00 Laboratory Results 07/03/16 05:10 07/03/16 05:10 07/01/16 07/02/16 07/03/16 23:59 23:59 23:59 Intake Total 1450 2500 2710 Output Total 500 3225 1001 Balance 950 -725 1709 PT 15.7 SEC (12.0-15.0) H 07/03/16 05:10 INR 1.25 (0.83-1.16) H 07/03/16 05:10 Physical Exam - Physical Exam General Appearance: alert, moderate distress ICD10 Worksheet Patient Problems: Problems Problem Status Onset Fever and neutropenia Acute
[2016-07-03 19:43] LABS: POTASSIUM 3.3 mEq/L (3.5-5.2)
[2016-07-03] MEDS: WARFARIN SODIUM 2.5 MG TAB PO SCH (20:02)
[2016-07-03] MEDS: MIRTAZAPINE 15 MG TAB PO SCH (20:02)
[2016-07-03] MEDS: VANCOMYCIN 1.5 GM in D5W 250 ML IV SCH (23:24)
[2016-07-04] MEDS: HYDROCODONE/APAP 5/325 TAB PO PRN ×3 (04:26→21:10)
[2016-07-04] MEDS: MEROPENEM 1 GM in NS 100 ML IV SCH ×3 (05:26→21:13)
[2016-07-04 05:48] LABS: ABSOLUTE NRBC COUNT 0.05 10^3/uL (0-0.01); ADD DIFF? YES; ATYPICAL LYMPHOCYTE FLAG 0 (0-99); FRAGMENT RBC FLAG 20 (0-99); HEMATOCRIT 30.4 % (38.0-47.0); HEMOGLOBIN 10.5 g/dL (12.6-16.3); IONIZED CALCIUM 1.12 MMOL/L (1.12-1.30); LIPEMIA HEMOLYSIS FLAG 90 (0-99); MEAN CELL HEMOGLOBIN 32.5 pg (27.9-34.1); MEAN CELL HEMOGLOBIN CONCENTR. 34.5 g/dL (32.4-36.7); MEAN CELL VOLUME 94.1 fL (81.5-99.8); MEAN PLATELET VOLUME 10.6 fL (8.7-11.7); NRBC-AUTO% 0.6 % (0.0-0.2); PLATELET CLUMPS FLAG 0 (0-99); PLATELET COUNT 74 10^3/uL (150-400); RED BLOOD CELL COUNT 3.23 10^6/uL (4.18-5.33)
[2016-07-04 05:50] LABS: ADD MORPH? NO; ADD SCAN? NO; LEFT SHIFT FLG 230 (0-99); RED CELL DISTRIBUTION WIDTH 20.2 % (11.5-15.2)
[2016-07-04 06:07] LABS: ANION GAP 8 mEq/L (8-16); CALCIUM 8.5 mg/dL (8.5-10.4); CARBON DIOXIDE 24 mEq/l (22-31); CHLORIDE 108 mEq/L (97-110); CREATININE 0.5 mg/dL (0.6-1.0); GLOMERULAR FILTRATION RATE > 60; GLUCOSE 75 mg/dL (70-100); POTASSIUM 3.2 mEq/L (3.5-5.2); SODIUM 140 mEq/L (134-144)
[2016-07-04 06:22] LABS: PLATELET ESTIMATE DECREASED (ADEQ); TOXIC GRANULATION PRESENT
[2016-07-04 06:23] LABS: MACROCYTES 1+; POLYCHROMASIA 1+
[2016-07-04] MEDS: ACYCLOVIR IV SCH ×3 (06:28→22:25)
[2016-07-04] MEDS: D5W IV SCH ×3 (06:28→22:25)
--- NOTE | 2016-07-04 08:56 | SOAPPROG ---
SOAP Progress Note Assessment/Plan: Assessment: Assessment/Plan: 75 yo w metastatic ovarian ca who p/w neutropenic fever and staph sepsis 1. Fever - due to Staph likely from central line - no fever last 24 hours. No longer neutropenic 2. mucositis - slow to improve - related to Doxil - still an issue 3. Hx of DVT - coumadin 4. Hypoxemia - on O2; bronch results noted 5. Pancytopenia - 2/2 chemo; plts down a little today at 75k 6. Ovarian ca - metastatic, on Doxil - she has had 3 doses of Doxil (last one given on 06/09/16). CA125 was 806 after 2 doses (down slightly). CA 125 from 07/03 down to 442. This is very promising for response. Plan: - probable transfer to today - Continue medical care as you are doing - Due for next dose of Doxil on 07/07/16, but will hold for now - still has stomatitis - No transfusion today Will follow along with you. Subjective: 'My mouth is sore that's why I can't eat' Objective: Vital Signs Temp Pulse Resp BP Pulse Ox 36.8 C 64 20 119/56 L 96 07/04/16 07:52 07/04/16 07:52 07/04/16 07:52 07/04/16 07:52 07/04/16 07:52 Laboratory Results 07/04/16 05:30 07/04/16 05:30 07/02/16 07/03/16 07/04/16 23:59 23:59 23:59 Intake Total 2500 2810 700 Output Total 3225 1001 Balance -725 1809 700 PT 15.7 SEC (12.0-15.0) H 07/03/16 05:10 INR 1.25 (0.83-1.16) H 07/03/16 05:10 Physical Exam - Physical Exam EENT: other (stomatitis still present - grade 2) Respiratory: crackles (RUL posterior) Skin: pallor Neuro/Psych: alert ICD10 Worksheet Patient Problems: Problems Problem Status Onset Fever and neutropenia Acute
[2016-07-04] MEDS: NYSTATIN SUSP 500000 UNIT/5 ML UDCUP PO SCH ×2 (09:12→21:12)
[2016-07-04] MEDS: GABAPENTIN 300 MG CAP PO SCH ×2 (09:12→21:12)
[2016-07-04] MEDS: MUPIROCIN 2% 22 GM OINT TP SCH (09:13)
[2016-07-04] MEDS ORDERED: CALCIUM GLUCONATE 50 ML IV ONE (09:47)
[2016-07-04] MEDS ORDERED: POTASSIUM CL 10 MEQ TAB PO ONE (09:48)
--- NOTE | 2016-07-04 09:52 | PCMIDPN ---
Assessment/Plan: Assessment/Plan: 1. Fevers: new - new fevers after a period of being afebrile. Temps better today so far -CT chest neg for PE -f/u blood cx from 07/02 so far ngtd -CMV PCR, HSV PCR pending -Overall care coordinated with hospitalist team, -discussed plan of care with family at bedside. 2. CoNS bacteremia: -likely source is port -Currently on Vanco. Vanco trough 7.9 from 06/28/16. trough 07/02 was 18. -Decrease dose to 1g daily today. - f/u blood cx from 06/26 ngtd -creatinine 0.5 -D#9/ -reviewed results of recent cultures with patient. 3. Mucositis with oral ulcers, thrush - HSV pcr:pending; CMV PCR (repeat) pending. (initially was negative) -On IV Acyclovir and Fluconazole -Consider EGD to further evaluate if not improving and stable. -On merem, vanco for empiric antibacterial coverage as well given mucosal breakdown. 4. Pneumonia: - multiple studies done which are unrevealing as to cause: cmv blood/bronch neg , aspergillus neg, crypto neg, flu neg -RVP pending - Completed course of therapy with Cefepime, Azithro. -Ct chest done today: neg for PE. images reviewed. pulm edema vs pneumonia. 5. Neutrapenia: - resolved. meds vanco 1.5 daily- D# 7/ cefepime 2g q8-#8 (stopped 07/02/16) Azithro 500mg daily- 06/28/16- D#5 (stopped 07/02/16) 07/04/16 09:52 Subjective: Remains in SDU. overall temps in last 24 hours have improved. Last spiking temps was early yesterday morning. Some improvment in degree of pain involving her mouth, throat and with swallowing but still hurts.Denies abd pain. had three loose stools yesterday. no increase in shortness of breath. Sitting up in bed today. Objective: Vital Signs Temp Pulse Resp BP Pulse Ox 36.8 C 64 20 119/56 L 96 07/04/16 07:52 07/04/16 07:52 07/04/16 07:52 07/04/16 07:52 07/04/16 07:52 Laboratory Results 07/04/16 05:30 07/04/16 05:30 07/03/16 07/04/16 07/05/16 05:59 05:59 05:59 Intake Total 2650 5290 Output Total 312 401 Balance -475 2209 - Physical Exam General Appearance: alert, no apparent distress EENT: other (oral ulcers, thrush.mucositis) Respiratory: coarse breath sounds Cardiac/Chest: regular rate, rhythm, other (port: nontender) Extremities: No swelling Abdomen: normal bowel sounds, non-tender, soft, No distended Skin: No rash ICD10 Worksheet Patient Problems: Problems Problem Status Onset Fever and neutropenia Acute
[2016-07-04] MEDS: FLUCONAZOLE/NaCl 100 ML IV SCH (11:04)
[2016-07-04] MEDS: ENOXAPARIN 40 MG/0.4 ML SYR SC SCH (13:15)
--- NOTE | 2016-07-04 13:42 | HOSPPROG ---
Hospitalist Progress Note Assessment/Plan: 75 yo f w metastatic CA here w respiratory failure tachycardia: PE workup neg subsequently spiked fever tachycardia has tracked w fevers febrile again today w anticipatory tachycardia diarrhea: check cdiff no peritoneal signs resp failure - improved 02 requirements BAL w some mucus, no blood initial micro unrevealing - cont abx, hold further diuresis given lack of change in cxr despite bnp 2650-> 350 w diuresis although volume overload not clearly the cause of this yesterday's bronch appearance not c/w vol overload given normal (albeit low quality) echo, and lack of improvement, I suspect volume overload not major player in pulm process ON vanc meropenem azithro dc steroids today given absence of wheezing or clear inflammatory process fevers: uncertain cause and new in last two days after many days of being afebrile no urinary sx chest imaging unchanged cdiff neg I discussed case w GI MD and they will do egd w bx/cx in AM to eval for HSV or CMV esophagitis as source of fevers continue meropenem/vanc/fluconazole pulm infiltrates/pleural effusions - treating as pulm edema; certainly other considerations - cont broad spectrum abx and steroids - add azith today as above small PE/hx DVT - start low dose lovenox; caution given thrombocytopenia on warfarin no new PE continue prophylactic enox and warfarin (decreased hct noted) albumin therapy: ? stop mucusitis: interfering w eating stop TPN counts improving continue magic mouthwash treat thrush sacral blister - hernandez placed; discussed with Dr Linda Basurto chest wall wound - wound care staph epi bacteremia - vanc, follow repeat cx's, ID consult - she has a port, will need decision regarding this based on repeat BCx's repeat blood cx 06/23 NGTD febrile neutropenia - cont vanc/cefepime per ID pancytopenia - d/t chemo metastatic ovarian cancer - last chemo 06/06 risk: high Subjective: case d/w dr bernal. febrile again. tele: sinus tach (interp by me) Objective: Vital Signs Temp Pulse Resp BP Pulse Ox 37.0 C 93 23 H 122/87 H 97 07/04/16 11:44 07/04/16 11:44 07/04/16 11:44 07/04/16 11:44 07/04/16 11:44 Laboratory Results 07/04/16 05:30 07/04/16 05:30 07/03/16 07/04/16 07/05/16 05:59 05:59 05:59 Intake Total 2650 2610 Output Total 3125 401 300 Balance -475 2209 -300 PT 15.7 SEC (12.0-15.0) H 07/03/16 05:10 INR 1.25 (0.83-1.16) H 07/03/16 05:10 - Physical Exam Constitutional: no apparent distress, appears nourished Eyes: PERRL, anicteric sclera Ears, Nose, Mouth, Throat: moist mucous membranes, hearing normal Cardiovascular: regular rate and rhythym, no murmur, rub, or gallop, tachycardia Respiratory: no respiratory distress, other (diffuse rhonchi) Gastrointestinal: normoactive bowel sounds, soft, non-tender abdomen Genitourinary: No hernandez in urethra Skin: warm, normal color Musculoskeletal: full muscle strength, no muscle tenderness Neurologic: AAOx3 ICD10 Worksheet Patient Problems: Problems Problem Status Onset Fever and neutropenia Acute
--- NOTE | 2016-07-04 14:57 | PDINTPN ---
Hostess Host Progress Note Assessment/Plan: Assessment: 75 F with metastatic ovarian cancer admitted 06/24 with neutropenic fever following chemotherapy 2-3 weeks [employer]. She grew S. epi from blood cultures and has been getting antibiotics, with the presumed source from her infusiport. Part of her treatment has also been IVF and she developed a worsening oxygen requirement and significant infiltrates on CXR. She was treated with diuretics with good UOP, but her CXR and O2 requirement failed to respond. She underwent BAL 06/29 to rule out opportunistic pathogens, and all cultures have been negative to date. She was transferred to the floor where she remained stable, but devloped tachycardia to the 130's 07/02 so was transferred back to the ICU. She was reportedly more somnolent and confused with increased RR as well. On arrival in the ICU her HR was 115 and oxygen saturation 100% on 2 lpm. She readily recognized me and denied discomfort. * Tahcycardia- Improved, HR 90s-100s, episode of higher rate with fever today. * PNA- O2 requirements up this afternoon at same time as fever, tachycardia. No longer neutropenic. No role for repeat bronchoscopy. Remains on Cefepime and Azithromycin and Vanco. Fluconazole was previously added for refractory thrush. * Pleural effusions: Likely related to effusion and fluid resuscitation. Minimal on CXR. * Mucositis: Has prevented PO. Improving, patient able to take PO, but still quite minimal * Bacteremia- Abx include Fluconazole, Acyclovir, Vanco, and Meropenem. * Hx DVT on Coumadin. INR Low * Anemia: Hgb up today. * Thrombocytopenia: Down today. Plan:Diet as tolerated. Continue antibiotics. Increase activity. Await VZV, CMV studies. Follow Hgb, Plt. EGD tomorrow. Continue to monitor in SDU. 07/04/16 15:02 07/04/16 15:02 Subjective: Feels weaker today. Poor PO intake related to ongoing oral discomfort. Objective: Vital Signs Temp Pulse Resp BP Pulse Ox 37.0 C 93 23 H 122/87 H 97 07/04/16 11:44 07/04/16 11:44 07/04/16 11:44 07/04/16 11:44 07/04/16 11:44 Microbiology 06/29/16 14:00 Mycobacterial Smear (RICKY) - Final Lung Left Upper Lobe - Bronchial Washings 06/29/16 14:00 Mycobacterial Smear (RICKY) - Final Lung Left Upper Lobe - Bronchial Washings Laboratory Results 07/04/16 05:30 07/04/16 05:30 07/03/16 07/04/16 07/05/16 05:59 05:59 05:59 Intake Total 2650 2610 Output Total 3125 401 300 Balance -475 2209 -300 PT 15.7 SEC (12.0-15.0) H 07/03/16 05:10 INR 1.25 (0.83-1.16) H 07/03/16 05:10 CXR: L>R infiltrated, improved slightly from 06/29. Images reviewed. Physical Exam - Physical Exam General Appearance: alert, no apparent distress EENT: other (mucositis unchanged.) Neck: normal inspection Respiratory: crackles (bilateral) Cardiac/Chest: regular rate, rhythm, No edema Abdomen: normal bowel sounds, soft Skin: normal color, warm/dry Extremities: normal inspection Neuro/Psych: alert, normal mood/affect ICD10 Worksheet Patient Problems: Problems Problem Status Onset Fever and neutropenia Acute
[2016-07-04] MEDS: MIRTAZAPINE 15 MG TAB PO SCH (21:11)
[2016-07-04] MEDS: WARFARIN SODIUM 2.5 MG TAB PO SCH (21:12)
[2016-07-04 22:11] LABS: SPECIMEN SOURCE MOUTH ULCERS; VARICELLA ZOSTER NEGATIVE (Negative)
[2016-07-04 22:52] LABS: POTASSIUM 2.9 mEq/L (3.5-5.2)
[2016-07-04] MEDS: VANCOMYCIN HCL/NORMAL SALINE 250 ML IV SCH (23:54)
[2016-07-05] MEDS ORDERED: POTASSIUM CL 10 MEQ TAB PO ONE ×2 (00:49→19:34)
[2016-07-05] MEDS: POTASSIUM Cl (KCl) 50 ML IV SCH ×6 (02:48→21:01)
[2016-07-05] MEDS ORDERED: FUROSEMIDE 40 MG/4 ML VIAL IVP ONE ×2 (05:37→11:33)
[2016-07-05] MEDS: D5W IV SCH ×3 (07:08→21:24)
[2016-07-05] MEDS: ACYCLOVIR IV SCH ×3 (07:08→21:24)
[2016-07-05] MEDS: MEROPENEM 1 GM in NS 100 ML IV SCH ×2 (08:40→17:18)
[2016-07-05 08:58] LABS: ABSOLUTE NRBC COUNT 0.02 10^3/uL (0-0.01); ADD DIFF? YES; ATYPICAL LYMPHOCYTE FLAG 0 (0-99); FRAGMENT RBC FLAG 20 (0-99); HEMATOCRIT 36.4 % (38.0-47.0); HEMOGLOBIN 12.4 g/dL (12.6-16.3); LIPEMIA HEMOLYSIS FLAG 90 (0-99); MEAN CELL HEMOGLOBIN 31.5 pg (27.9-34.1); MEAN CELL HEMOGLOBIN CONCENTR. 34.1 g/dL (32.4-36.7); MEAN CELL VOLUME 92.4 fL (81.5-99.8); NRBC-AUTO% 0.2 % (0.0-0.2); PLATELET CLUMPS FLAG 0 (0-99); PLATELET COUNT 114 10^3/uL (150-400); RED BLOOD CELL COUNT 3.94 10^6/uL (4.18-5.33)
--- NOTE | 2016-07-05 09:06 | HOSPPROG ---
Hospitalist Progress Note Assessment/Plan: Acute respiratory failure - Acutely decompensated this am, sats down to 70% on 15 LPM. Suspect some element of HF with diastolic dysfunction vs PNA. There are case reports of pneumonitis from Doxil. Steroids d/c'd yesterday -repeat bnp back up to 3K -diurese, IV lasix -consider resuming steroids for possible pneumonitis component -cont bipap, wean as able -cont meropenem and vanc -ID, pulm following Neutropenic fever - neutropenia resolved, fevers persist. ?drug fever. On Vanc /Meropenem as above, plus Acyclovir given +HSV and Fluconazole for bora. CoNS / staph epi bacteremia likely from PORT with chest wall wound - Rpt BCx's ngtd. Completing 2 weeks atbx per ID Metastatic ovarian cancer - On Doxil, last dose 06/06, significant toxicities present. Pancytopenia - likely secondary to chemo, improving. Follow. Oral mucositis / candidiasis - likely secondary to chemo, +HSV, cont Acyclovir. Cont Fluconazole. Considering EGD to evaluate for esophageal bora given persistent fevers, though given poor respiratory status, not stable for procedure today. Appreciate GI consult. H/O DVT - pharmacy dosing coumadin Sacral pressure injury - hernandez in place, wound care. DVT PPLX - Lovenox, watch plts closely Limited resuscitation - no compressions, intubation ok. I discussed this again with pt this am. Dispo - cont inpt / ICU Subjective: Pt very weak. Denies CP or SOB. She is on bipap, tolerating ok. + fevers persist. Objective: Vital Signs Temp Pulse Resp BP Pulse Ox 38.8 C H 112 H 26 H 98/54 L 99 07/05/16 07:49 07/05/16 07:55 07/05/16 07:55 07/05/16 07:49 07/05/16 07:55 Microbiology 06/29/16 14:00 Mycobacterial Smear (RICKY) - Final Lung Left Upper Lobe - Bronchial Washings 06/29/16 14:00 Mycobacterial Smear (RICKY) - Final Lung Left Upper Lobe - Bronchial Washings 07/04/16 07/05/16 07/06/16 05:59 05:59 05:59 Intake Total 2610 1650 Output Total 401 1225 Balance 2209 425 PT 15.7 SEC (12.0-15.0) H 07/03/16 05:10 INR 1.25 (0.83-1.16) H 07/03/16 05:10 - Physical Exam Constitutional: chronically ill appearing Eyes: PERRL Ears, Nose, Mouth, Throat: moist mucous membranes Cardiovascular: regular rate and rhythym Respiratory: no respiratory distress, clear to auscultation Gastrointestinal: normoactive bowel sounds, soft, non-tender abdomen Neurologic: AAOx3 Psychiatric: interacting appropriately ICD10 Worksheet Patient Problems: Problems Problem Status Onset Fever and neutropenia Acute
[2016-07-05 09:07] LABS: ADD SCAN? NO; LEFT SHIFT FLG 250 (0-99); RED CELL DISTRIBUTION WIDTH 20.3 % (11.5-15.2)
[2016-07-05 09:08] LABS: ADD MORPH? NO
[2016-07-05 09:14] LABS: ANION GAP 9 mEq/L (8-16); CALCIUM 5.7 mg/dL (8.5-10.4); CARBON DIOXIDE 19 mEq/l (22-31); CHLORIDE 116 mEq/L (97-110); CREATININE 0.4 mg/dL (0.6-1.0); GLOMERULAR FILTRATION RATE > 60; GLUCOSE 85 mg/dL (70-100); SODIUM 144 mEq/L (134-144)
[2016-07-05 09:17] LABS: INR 2.25 (0.83-1.16); PROTIME(PATIENT) 25.1 SEC (12.0-15.0)
[2016-07-05 09:20] LABS: POTASSIUM 2.2 mEq/L (3.5-5.2)
[2016-07-05 09:25] LABS: ALANINE AMINOTRANSFERASE 38 IU/L (9-52); ALBUMIN 2.2 g/dL (3.5-5.0); ALKALINE PHOSPHATASE 69 IU/L (38-126); ASPARTATE AMINOTRANSFERASE 53 IU/L (14-46); BILIRUBIN,TOTAL 1.3 mg/dL (0.1-1.4); TOTAL PROTEIN 3.7 g/dL (6.3-8.2)
[2016-07-05] MEDS ORDERED: CALCIUM GLUCONATE 50 ML IV ONE (09:29)
[2016-07-05] MEDS: GABAPENTIN 300 MG CAP PO SCH ×2 (09:34→20:30)
[2016-07-05] MEDS: ENOXAPARIN 40 MG/0.4 ML SYR SC SCH (09:34)
[2016-07-05] MEDS: NYSTATIN SUSP 500000 UNIT/5 ML UDCUP PO SCH ×2 (09:34→20:29)
[2016-07-05] MEDS: FLUCONAZOLE/NaCl 100 ML IV SCH (09:40)
[2016-07-05] MEDS: MUPIROCIN 2% 22 GM OINT TP SCH (09:41)
[2016-07-05 09:57] LABS: PLATELET ESTIMATE DECREASED (ADEQ)
[2016-07-05 09:58] LABS: POLYCHROMASIA 1+
--- NOTE | 2016-07-05 10:02 | PDINTPN ---
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 She grew S. epi from blood cultures and has been getting antibiotics, with the presumed source from her infusiport. Part of her treatment has also been IVF and she developed a worsening oxygen requirement and significant infiltrates on CXR. She was treated with diuretics with good UOP, but her CXR and O2 requirement failed to respond. She underwent BAL 06/29 to rule out opportunistic pathogens, and all cultures have been negative to date. She was transferred to the floor where she remained stable, but devloped tachycardia to the 130's 07/02 so was transferred back to the ICU. She was reportedly more somnolent and confused with increased RR as well. On arrival in the ICU her HR was 115 and oxygen saturation 100% on 2 lpm. She readily recognized me and denied discomfort. * Tahcycardia- Higher, 100-120 with fever today. * PNA- O2 requirements up in the last 24 hours at same time as fever, tachycardia. CXR much worse. BNP up and I>O. No longer neutropenic. No role for repeat bronchoscopy. Remains on Meropenem, Vanco fluconazole, and acyclovir.? Organizing pneumonia due to Doxil? * Pleural effusions: Likely related to effusion and fluid resuscitation. Minimal on CXR. * Mucositis: Has prevented PO. Improving, patient able to take PO, but still quite minimal * Bacteremia- S. Epi. Abx include Fluconazole, Acyclovir, Vanco, and Meropenem. * Hx DVT on Coumadin. INR Low * Anemia: Hgb up again today. * Thrombocytopenia: Low but increased today. Plan:Diet as tolerated. Continue antibiotics. Lasix. Consider steroids for possible pulmonary drug toxicity. Increase activity. Follow Hgb, Plt, CXR. Hold off on EGD. Continue to monitor in SDU. 07/05/16 11:28 07/05/16 11:30 07/05/16 11:31 07/05/16 11:31 Subjective: Feels more dyspneic. Objective: Vital Signs Temp Pulse Resp BP Pulse Ox 38.8 C H 112 H 26 H 98/54 L 99 07/05/16 07:49 07/05/16 07:55 07/05/16 07:55 07/05/16 07:49 07/05/16 07:55 Microbiology 06/29/16 14:00 Mycobacterial Smear (RICKY) - Final Lung Left Upper Lobe - Bronchial Washings 06/29/16 14:00 Mycobacterial Smear (RICKY) - Final Lung Left Upper Lobe - Bronchial Washings Laboratory Results 07/05/16 08:50 07/05/16 08:40 07/04/16 07/05/16 07/06/16 05:59 05:59 05:59 Intake Total 2610 1650 Output Total 401 1225 Balance 2209 425 PT 25.1 SEC (12.0-15.0) H D 07/05/16 08:50 INR 2.25 (0.83-1.16) H 07/05/16 08:50 CXR: Increased infiltrates. Images reviewed. Laboratory Tests 07/01/16 07/02/16 14:45 14:10 CMV DNA Detection Undetected HSV I DNA PCR POSITIVE H Laboratory Tests 07/05/16 08:40 NT-Pro-B Natriuret Pep 3280 H Physical Exam - Physical Exam General Appearance: alert, no apparent distress EENT: normal ENT inspection, other (On BiPAP) Neck: normal inspection Respiratory: lungs clear Cardiac/Chest: regular rate, rhythm, No edema Abdomen: normal bowel sounds, non-tender Skin: normal color, warm/dry Extremities: non-tender Neuro/Psych: alert, normal mood/affect, oriented x 3 ICD10 Worksheet Patient Problems: Problems Problem Status Onset Fever and neutropenia Acute
[2016-07-05] MEDS ORDERED: PROTOCOL MAGNESIUM 1 DOSE IV PRN (10:12)
[2016-07-05] MEDS ORDERED: MAGNESIUM SULF 2 GM/WATER 50 ML IV ONE (10:26)
--- NOTE | 2016-07-05 11:08 | GCON ---
[f rep st] CONSULTATION GI INPATIENT CONSULTATION DATE OF CONSULTATION: 07/05/2016 REASON FOR CONSULTATION: I was kindly requested to see the patient in consultation by Dr. Vinny Hua for a chief complaint of fever. HISTORY OF PRESENT ILLNESS: She is a 75-year-old, white female with metastatic ovarian cancer, who was admitted initially to the hospital with neutropenic fever after chemotherapy. She also developed significant mucositis due to the above. She complains of soreness in her throat, pointing high, under both sides of her chin. She denies odynophagia in her chest. She denies significant dysphagia in her chest. She now is febrile, with worsening changes on her chest x-ray, and increased oxygen requirements. PAST MEDICAL HISTORY: 1. As above. 2. DVT. 3. XAVI with BSO. 4. Appendectomy. 5. Otherwise, noncontributory. INPATIENT MEDICATIONS: Include Diflucan, acyclovir, vancomycin, meropenem, Coumadin, Remeron, nystatin, Neurontin, Lovenox, and Zofran as needed. ALLERGIES: No known drug allergies. SOCIAL HISTORY: Negative for alcohol abuse. FAMILY HISTORY: Negative for similar mucositis. REVIEW OF SYSTEMS: Positive pertinent review of systems as per my HPI. Otherwise, a complete review of systems is negative. PHYSICAL EXAMINATION: CONSTITUTIONAL: Reveals a nontoxic-appearing woman with breathing difficulties. SKIN: Warm, dry. EYES: Pupils equal, round, reactive to light and accommodation. EAR, NOSE, MOUTH, AND THROAT: Difficult to evaluate her oropharynx, as she has a tight mask in place for oxygenation. CARDIOVASCULAR: Normal S2, normal PMI. RESPIRATORY: Decreased breath sounds and rhonchi anteriorly. ABDOMEN: Soft, nontender. NEUROLOGIC: Grossly nonfocal, cranial nerves grossly intact. PSYCHIATRIC: Orientation, insight appropriate. MUSCULOSKELETAL: Strength grossly normal throughout, normal station. LABORATORIES: Include blood cultures positive for S. epidermidis. Chest x-ray with worsening infiltrates versus pneumonia. Urinalysis negative. CBC with a white count of 8.4, hematocrit 30.4, and platelet count decreased at 74,000. C difficile negative. Prothrombin time 15.7. Potassium 3.2. Liver function tests essentially normal. ASSESSMENT: 1. Fever. I do not suspect digestive in nature. She denies significant esophageal symptoms, such as odynophagia, significant dysphagia, etc. Rather, I suspect her fever is due to her worsening pulmonary process, with increased oxygen requirement, worsening chest x-ray, etc. 2. Oropharyngeal discomfort. Suspect due to her mucositis. PLAN: 1. At this point, upper endoscopy is not clinically indicated. In addition, with her worsening pulmonary status, the risks would far outweigh any benefit. 2. Otherwise, further management as per the critical care team, Infectious Disease, etc. I will sign off. Please call if I can be of further help in the future. Thank you for allowing me to help in the management of this patient. Copy requested to: Dr. Kwasi Douglas /[id number]/MODL MTDD
--- NOTE | 2016-07-05 11:39 | PCMIDPN ---
Assessment/Plan: #Continued Fever, but now neutropenia resolved, Cdiff neg, CMV neg. BAL cx negative, multiple negative blood cultures. Query drug fever. --dc merrem, s/p 12 days of broad coverage, no w/ resolved neutropenia #Hypoxia, worsening infiltrates - volume, chemo toxicity; Neg ID w/u: all BAL studies negative, neg CMV --Resp panel PCR shows "pending" will call lab and follow up --diuresis then possibly steroids #Mucositis/dysphagia,HSV 1 +: on acyclovir/fluconazole slight improvement today # S. Epi bacteremia/port infection: current plan to retain port, 4 more days of IV Vancomycin, dose reduced 07/04 for Trough of 18, Cr normal today meds meropenem 1gm IV q8h Abx (Cefepime >Merrem) #12 fluconazole 200mg IV daily, #4 acyclovir 300mg IV q8h Vancomycin #/ meds 07/02 blood cx (2) 06/29 BAL negative to date 06/26 blood cx (2) negative 06/24 blood cx (2/2) CoNS Subjective: No international travel lived in [place] and [place] son at bedside main c/o is BIPAP no diarrhea, no itching persistent dysphagia Objective: Vital Signs Temp Pulse Resp BP Pulse Ox 38.8 C H 112 H 26 H 98/54 L 99 07/05/16 07:49 07/05/16 07:55 07/05/16 07:55 07/05/16 07:49 07/05/16 07:55 Microbiology 06/29/16 14:00 Mycobacterial Smear (RICKY) - Final Lung Left Upper Lobe - Bronchial Washings 06/29/16 14:00 Mycobacterial Smear (RICKY) - Final Lung Left Upper Lobe - Bronchial Washings Laboratory Results 07/05/16 08:50 07/05/16 08:40 07/04/16 07/05/16 07/06/16 05:59 05:59 05:59 Intake Total 2610 1650 Output Total 401 1225 Balance 2209 425 - Physical Exam General Appearance: alert, thin, other (appears SOB) EENT: pale conjunctiva, other (mucositis, no obvious thrush) Respiratory: crackles Neck: supple Cardiac/Chest: tachycardia Extremities: pedal edema Abdomen: non-tender, soft Male Genitalia: hernandez Skin: No rash Neuro/Psych: alert, oriented x 3, depressed affect - Line/s Mediport Lines: No drainage, No erythema - Time Spent With Patient Time Spent with Patient: greater than 35 minutes Time Spent with Patient: Greater than 35 minutes spent on this patients care, greater than 50% of time spent counseling, educating, and coordinating care regarding the above mentioned plan. ICD10 Worksheet Patient Problems: Problems Problem Status Onset Fever and neutropenia Acute
[2016-07-05] MEDS: ACETAMINOPHEN 325 MG TAB PO PRN (11:58)
--- NOTE | 2016-07-05 13:56 | WOCRNPDOC ---
LOGAN Advanced Assessment Note - Skin Integrity Problem, Advanced Assess Left Chest Dressing Type: Allevyn Life Dressing Description: Clean/Dry, Intact Exudate Amount: None Integumentary Issue Intervention: Visualized Under Dressing Kenia Wound Tissue: Hemosiderin Staining, Shiny Kenia Wound Swelling: None Wound Bed Color: [place], Red Wound Bed Constitution: Smooth Tissue (re-epithelializing) Wound Edges: Epithelizing, Attached, Irregular Site Odor: None Site Measurement - Head-to-Toe Length X Width X Depth (cm): 1x 4 x 0.03 Lymphedema Present: No Skin Integrity Problem Comment: Very thin margin of subcutaneous fat visible at perimeter of nipple. Tissue is otherwise new epithelium with a transparent quality, and hemosiderin-like discoloration. Continuing plan of care. TROY Rodas present for care of all sites. Left Buttock Blister Dressing Type: Adaptic, Allevyn Life Dressing Description: Clean/Dry, Intact Exudate Characteristic(s): None Integumentary Issue Intervention: Visualized Under Dressing Kenia Wound Tissue: Intact Kenia Wound Swelling: None Wound Bed Color: [place], Red Wound Bed Constitution: Smooth Tissue Wound Edges: Well Defined Site Odor: None Site Measurement - Head-to-Toe Length X Width X Depth (cm): 8.8 x 5 x 0.03. blister 1: 3.5 x 2 x 0 (intact roof). blister 2: 1 x 2.5 x 0 (intact roof) Skin Integrity Problem Comment: Primary blister site is 100% de-roofed, with two new satellite blisters at distal and lateral aspects. Continuing care and turns on Sport surface. Left Medial Foot Dressing Type: Allevyn Life Dressing Description: Clean/Dry, Intact Exudate Amount: None Integumentary Issue Intervention: Visualized Under Dressing Kenia Wound Tissue: Erythema, Non-blanching Wound Bed Constitution: Intact Serous Filled Blister Site Measurement - Head-to-Toe Length X Width X Depth (cm): 1.8 x 2 x 0 Skin Integrity Problem Comment: Appropriate care initiated by nurse staff. Right Hip Pressure Injury Dressing Type: Allevyn Life Dressing Description: Clean/Dry, Intact Exudate Amount: None Integumentary Issue Intervention: Visualized Under Dressing Kenia Wound Tissue: Non-blanching Kenia Wound Swelling: None Wound Bed Color: Purple Wound Bed Constitution: Smooth Tissue Wound Edges: Epithelizing Site Measurement - Head-to-Toe Length X Width X Depth (cm): 5 x 0.2 x 0 Pressure Injury Stage: Stage 2 (healing) Skin Integrity Problem Comment: Intact site has an appearance resembling a thin , linear DTI: intact, non-blanching, red-purple. Continuing protection with Allevyn and turns. Left Medial Knee Blister Dressing Type: Open to Air Exudate Characteristic(s): None Integumentary Issue Intervention: Dressing Applied (Adaptic and Allevyn dressing ), Dressing Initialed & Dated Kenia Wound Tissue: Intact Kenia Wound Swelling: None Wound Bed Constitution: Intact Serous Filled Blister Wound Edges: Attached Site Odor: None Site Measurement - Head-to-Toe Length X Width X Depth (cm): 3.3 x 1.1 x 0 Skin Integrity Problem Comment: Protected intact blister site w/contact layer and Allevyn dressing.
[2016-07-05 18:55] LABS: POTASSIUM 3.5 mEq/L (3.5-5.2)
[2016-07-05] MEDS: MIRTAZAPINE 15 MG TAB PO SCH (20:30)
[2016-07-05] MEDS: WARFARIN SODIUM 2.5 MG TAB PO SCH (20:31)
[2016-07-05] MEDS: VANCOMYCIN HCL/NORMAL SALINE 250 ML IV SCH (22:38)
[2016-07-06] MEDS: POTASSIUM Cl (KCl) 50 ML IV SCH (00:01)
[2016-07-06] MEDS: ACETAMINOPHEN 325 MG TAB PO PRN (02:31)
[2016-07-06 03:58] LABS: IONIZED CALCIUM 1.15 MMOL/L (1.12-1.30)
[2016-07-06 04:06] LABS: ADD DIFF? YES; ADD MORPH? NO; ATYPICAL LYMPHOCYTE FLAG 0 (0-99); FRAGMENT RBC FLAG 20 (0-99); HEMATOCRIT 33.1 % (38.0-47.0); HEMOGLOBIN 11.2 g/dL (12.6-16.3); LIPEMIA HEMOLYSIS FLAG 90 (0-99); MEAN CELL HEMOGLOBIN 31.5 pg (27.9-34.1); MEAN CELL HEMOGLOBIN CONCENTR. 33.8 g/dL (32.4-36.7); MEAN CELL VOLUME 93.2 fL (81.5-99.8); MEAN PLATELET VOLUME 12.2 fL (8.7-11.7); PLATELET CLUMPS FLAG 0 (0-99); PLATELET COUNT 107 10^3/uL (150-400); RED BLOOD CELL COUNT 3.55 10^6/uL (4.18-5.33); RED CELL DISTRIBUTION WIDTH 19.8 % (11.5-15.2)
[2016-07-06 04:10] LABS: ADD SCAN? NO; LEFT SHIFT FLG 160 (0-99)
[2016-07-06 04:13] LABS: ALANINE AMINOTRANSFERASE 40 IU/L (9-52); ALBUMIN 3.1 g/dL (3.5-5.0); ALKALINE PHOSPHATASE 107 IU/L (38-126); ANION GAP 10 mEq/L (8-16); ASPARTATE AMINOTRANSFERASE 73 IU/L (14-46); BILIRUBIN,TOTAL 2.1 mg/dL (0.1-1.4); CALCIUM 8.4 mg/dL (8.5-10.4); CARBON DIOXIDE 24 mEq/l (22-31); CHLORIDE 104 mEq/L (97-110); CREATININE 0.5 mg/dL (0.6-1.0); GLOMERULAR FILTRATION RATE > 60; GLUCOSE 78 mg/dL (70-100); POTASSIUM 3.8 mEq/L (3.5-5.2); SODIUM 138 mEq/L (134-144); TOTAL PROTEIN 5.1 g/dL (6.3-8.2)
[2016-07-06 04:29] LABS: BILIRUBIN-CONJUGATED 0.7 mg/dL (0.0-0.5); BILIRUBIN-UNCONJUGATED 1.4 mg/dL (0.0-1.1)
[2016-07-06 04:49] LABS: PLATELET ESTIMATE DECREASED (ADEQ)
[2016-07-06] MEDS ORDERED: POTASSIUM Cl (KCl) 50 ML IV ONE (05:36)
[2016-07-06] MEDS: ACYCLOVIR IV SCH ×3 (06:39→22:13)
[2016-07-06] MEDS: D5W IV SCH ×3 (06:39→22:13)
[2016-07-06 08:23] LABS: INR 1.55 (0.83-1.16); PROTIME(PATIENT) 18.6 SEC (12.0-15.0)
[2016-07-06] MEDS: FLUCONAZOLE/NaCl 100 ML IV SCH (08:48)
[2016-07-06] MEDS: GABAPENTIN 300 MG CAP PO SCH ×2 (08:48→20:48)
[2016-07-06] MEDS: NYSTATIN SUSP 500000 UNIT/5 ML UDCUP PO SCH ×2 (08:48→20:48)
[2016-07-06] MEDS: MUPIROCIN 2% 22 GM OINT TP SCH (09:21)
[2016-07-06] MEDS ORDERED: *PHM DO NOT USE-DEXAMETHASONE 0.2 MG/ML IV PED/NEWBORN SYR IV SCH (10:00)
--- NOTE | 2016-07-06 10:23 | HOSPPROG ---
Hospitalist Progress Note Assessment/Plan: Acute respiratory failure - CXR shows persistent b/l infiltrates, personally reviewed and interpreted. ?PNA vs element of HF vs pneumonitis. Continues to require intermittent bipap, on vapotherm at 30 LPM this am. Diuresed 3.5 kg since yesterday. BNP still elevated though could be some strain related to pulm process. +diastolic dysfunction on echo. Discussed trial of Dexamethasone for possible pneumonitis, pt agreeable. Discussed case with Pulm. -dexamethasone 4 mg IV BID -hold further diuresis for now given low BP -bipap prn, wean O2 as able -cont meropenem and vanc -ID, pulm following Neutropenic fever - neutropenia resolved, fevers persist. ?drug fever. On Vanc /Meropenem as above, plus Acyclovir given +HSV and Fluconazole for bora. CoNS / staph epi bacteremia likely from PORT with chest wall wound - Rpt BCx's ngtd. Completing 2 weeks atbx per ID Metastatic ovarian cancer - On Doxil, last dose 06/06, significant toxicities present including mucositis, possible pneumonitis. Pancytopenia - likely secondary to chemo, improving. Follow. Oral mucositis / candidiasis - likely secondary to chemo, +HSV, cont Acyclovir. Cont Fluconazole. Appreciate GI consult. EGD deferred for now given compromised respiratory status. If her odynophagia persists, can reconsider scope if/when respiratory status improved. H/O DVT - pharmacy dosing coumadin, sub-therapeutic INR today. Sacral pressure injury - hernandez in place, wound care. DVT PPLX - Lovenox, watch plts closely Limited resuscitation - no compressions, intubation ok. Consider palliative care consult. Dispo - cont inpt / ICU Subjective: Pt up in chair. Complains of odynophagia, not so much dysphagia. Continues to have fevers. Weak. Objective: Vital Signs Temp Pulse Resp BP Pulse Ox 37.0 C 103 H 30 H 90/55 L 90 L 07/06/16 07:37 07/06/16 07:37 07/06/16 07:37 07/06/16 07:37 07/06/16 07:37 Laboratory Results 07/06/16 03:55 07/06/16 03:55 07/05/16 07/06/16 07/07/16 05:59 05:59 05:59 Intake Total 1650 2108 Output Total 1221 1651 Balance 425 457 PT 18.6 SEC (12.0-15.0) H 07/06/16 08:00 INR 1.55 (0.83-1.16) H 07/06/16 08:00 - Physical Exam Constitutional: chronically ill appearing Eyes: PERRL Ears, Nose, Mouth, Throat: moist mucous membranes, other (+left lateral tongue ulcer, no thrush) Cardiovascular: regular rate and rhythym Respiratory: no respiratory distress, clear to auscultation Gastrointestinal: normoactive bowel sounds, soft, non-tender abdomen Skin: warm Musculoskeletal: generalized weakness Neurologic: AAOx3 Psychiatric: interacting appropriately ICD10 Worksheet Patient Problems: Problems Problem Status Onset Fever and neutropenia Acute
--- NOTE | 2016-07-06 12:51 | SOAPPROG ---
SOAP Progress Note Assessment/Plan: Assessment: Assessment/Plan: 75 yo w metastatic ovarian ca who p/w neutropenic fever and staph sepsis - mucositis - slow to improve - related to Doxil - still an issue - Hx of DVT - coumadin - Pancytopenia - 2/2 chemo; WBC ok, hgb stable, plts low but adequate. No txn needed - Ovarian ca - metastatic, on Doxil - she has had 3 doses of Doxil (last one given on 06/09/16). CA125 was 806 after 2 doses (down slightly). CA 125 from 07/03 down to 442. This is very promising for response. Plan: - continue to follow - stomatitis still and issue - chemo is on hold for now. She will need a dose reduction when it resumes. Subjective: My mouth still hurts Objective: Vital Signs Temp Pulse Resp BP Pulse Ox 36.6 C 105 H 23 H 99/56 L 97 07/06/16 12:00 07/06/16 12:00 07/06/16 12:00 07/06/16 12:00 07/06/16 12:00 Laboratory Results 07/06/16 03:55 07/06/16 03:55 07/04/16 07/05/16 07/06/16 23:59 23:59 23:59 Intake Total 1500 2313 645 Output Total 875 1625 376 Balance 625 688 269 PT 18.6 SEC (12.0-15.0) H 07/06/16 08:00 INR 1.55 (0.83-1.16) H 07/06/16 08:00 Physical Exam - Physical Exam General Appearance: alert, mild distress EENT: other (mouth ulcers persist. Grade 2) ICD10 Worksheet Patient Problems: Problems Problem Status Onset Fever and neutropenia Acute
--- NOTE | 2016-07-06 13:15 | PDINTPN ---
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 She grew S. epi from blood cultures and has been getting antibiotics, with the presumed source from her infusiport. Part of her treatment has also been IVF and she developed a worsening oxygen requirement and significant infiltrates on CXR. She was treated with diuretics with good UOP, but her CXR and O2 requirement failed to respond. She underwent BAL 06/29 to rule out opportunistic pathogens, and all cultures have been negative to date. She was transferred to the floor where she remained stable, but devloped tachycardia to the 130's 07/02 so was transferred back to the ICU. She was reportedly more somnolent and confused with increased RR as well. On arrival in the ICU her HR was 115 and oxygen saturation 100% on 2 lpm. She readily recognized me and denied discomfort. * Tahcycardia- 120 with fever today. Now down to 100 * PNA- O2 requirements up in the last 24 hours at same time as fever, tachycardia. CXR much worse. BNP up and I>O. No longer neutropenic. No role for repeat bronchoscopy. Remains on Meropenem, Vanco fluconazole, and acyclovir.? Organizing pneumonia due to Doxil? * Pleural effusions: Likely related to effusion and fluid resuscitation. Minimal on CXR. * Mucositis: Has prevented PO. Improving, patient able to take PO, but still quite minimal * Bacteremia- S. Epi. Abx include Fluconazole, Acyclovir, Vanco, and Meropenem. * Hx DVT on Coumadin. INR Low * Anemia: Hgb up again today. * Thrombocytopenia: Low but increased today. Plan:Diet as tolerated. Continue antibiotics. Repeat Lasix. Wean down oxygen as tolerated. Started steroids for possible pulmonary drug toxicity. Increase activity. Follow Hgb, Plt, CXR. Hold off on EGD. Continue to monitor in SDU. 07/06/16 13:18 07/06/16 13:18 Subjective: Feels breathing is a bit better. Poor appetite, still some pain with eating/ swallowing. Objective: Vital Signs Temp Pulse Resp BP Pulse Ox 36.6 C 105 H 23 H 99/56 L 97 07/06/16 12:00 07/06/16 12:00 07/06/16 12:00 07/06/16 12:00 07/06/16 12:00 Laboratory Results 07/06/16 03:55 07/06/16 03:55 07/05/16 07/06/16 07/07/16 05:59 05:59 05:59 Intake Total 1650 2108 Output Total 1225 1651 Balance 425 457 PT 18.6 SEC (12.0-15.0) H 07/06/16 08:00 INR 1.55 (0.83-1.16) H 07/06/16 08:00 CXR: Unchanged infiltrates. Images reviewed. Physical Exam - Physical Exam General Appearance: alert, no apparent distress EENT: normal ENT inspection Neck: normal inspection Respiratory: crackles (fine bilateral) Cardiac/Chest: regular rate, rhythm, No edema Abdomen: normal bowel sounds, non-tender Skin: normal color, warm/dry Extremities: normal inspection Neuro/Psych: alert, normal mood/affect, oriented x 3 ICD10 Worksheet Patient Problems: Problems Problem Status Onset Fever and neutropenia Acute
[2016-07-06] MEDS ORDERED: FUROSEMIDE 40 MG/4 ML VIAL IVP ONE (13:20)
[2016-07-06] MEDS ORDERED: HYDROCODONE/APAP 5/325 TAB ONE (18:06)
--- NOTE | 2016-07-06 18:13 | PCMIDPN ---
Assessment/Plan: Assessment: neutropenic fever -- neutropenia resolved although continues to be febrile at times. Appears that the bilateral infiltrates are tied in with the fevers. Infectious workup on the infiltrates thus far is negative. Respiratory viral panel PCR is still pending however. S/P meropenem course. Infiltrates could be volume overload or drug induced pneumonitis. Initial s. epi bacteremia treatment completing on 07/10/16. Doubt this is continuing to cause fevers. Plan: 1) Continue planned 14 day course of vanco for s. epi bloodstream infection. 2) Follow up resp viral panel PCR. 3) Consider if doxil may be behind persistent infiltrates and fever if diuresis does not alleviate hypoxia. Subjective: Patient resting in her bed. She claims to be breathing comfortably although sats decrease in to the mid to low 80s. No other new complaints. Weak and exhausted. Objective: Vancomycin #11 fluconazole #5 acyclovir Vital Signs Temp Pulse Resp BP Pulse Ox 36.6 C 98 14 97/55 L 96 07/06/16 16:00 07/06/16 16:00 07/06/16 16:00 07/06/16 16:00 07/06/16 16:00 Laboratory Results 07/06/16 03:55 07/05/16 07/06/16 07/07/16 05:59 05:59 05:59 Intake Total 1650 2108 Output Total 1225 1651 Balance 425 457 - Physical Exam General Appearance: WD/WN, alert, no apparent distress, thin, non-toxic Respiratory: crackles, No normal breath sounds, No wheezing Cardiac/Chest: regular rate, rhythm, No tachycardia Extremities: non-tender, normal inspection Skin: normal color, warm/dry, No rash Neuro/Psych: alert, normal mood/affect, oriented x 3 ICD10 Worksheet Patient Problems: Problems Problem Status Onset Fever and neutropenia Acute
[2016-07-06 18:26] LABS: POTASSIUM 3.7 mEq/L (3.5-5.2)
[2016-07-06] MEDS: HYDROCODONE/APAP 5/325 TAB PO PRN (18:29)
[2016-07-06] MEDS: MIRTAZAPINE 15 MG TAB PO SCH (20:48)
[2016-07-06] MEDS: DEXAMETHASONE 4 MG/ML VIAL IVP SCH (20:48)
[2016-07-06] MEDS: VANCOMYCIN HCL/NORMAL SALINE 250 ML IV SCH (20:49)
[2016-07-06] MEDS: WARFARIN SODIUM 2.5 MG TAB PO SCH (20:49)
[2016-07-06] MEDS ORDERED: POTASSIUM CL 10 MEQ TAB PO ONE (21:26)
[2016-07-07 03:16] LABS: ADD DIFF? YES; ADD MORPH? NO; ADD SCAN? YES; ATYPICAL LYMPHOCYTE FLAG 0 (0-99); FRAGMENT RBC FLAG 20 (0-99); HEMATOCRIT 29.4 % (38.0-47.0); HEMOGLOBIN 9.9 g/dL (12.6-16.3); LIPEMIA HEMOLYSIS FLAG 80 (0-99); MEAN CELL HEMOGLOBIN 32.4 pg (27.9-34.1); MEAN CELL HEMOGLOBIN CONCENTR. 33.7 g/dL (32.4-36.7); MEAN CELL VOLUME 96.1 fL (81.5-99.8); MEAN PLATELET VOLUME 12.6 fL (8.7-11.7); PLATELET CLUMPS FLAG 10 (0-99); PLATELET COUNT 106 10^3/uL (150-400); RED BLOOD CELL COUNT 3.06 10^6/uL (4.18-5.33); RED CELL DISTRIBUTION WIDTH 19.6 % (11.5-15.2)
[2016-07-07 03:25] LABS: INR 1.78 (0.83-1.16); PROTIME(PATIENT) 20.8 SEC (12.0-15.0)
[2016-07-07 03:40] LABS: LEFT SHIFT FLG 110 (0-99)
[2016-07-07 04:05] LABS: ALANINE AMINOTRANSFERASE 52 IU/L (9-52); ALBUMIN 2.8 g/dL (3.5-5.0); ALKALINE PHOSPHATASE 90 IU/L (38-126); ANION GAP 4 mEq/L (8-16); ASPARTATE AMINOTRANSFERASE 79 IU/L (14-46); BILIRUBIN,TOTAL 1.3 mg/dL (0.1-1.4); CALCIUM 8.2 mg/dL (8.5-10.4); CARBON DIOXIDE 29 mEq/l (22-31); CHLORIDE 102 mEq/L (97-110); CREATININE 0.6 mg/dL (0.6-1.0); GLOMERULAR FILTRATION RATE > 60; GLUCOSE 152 mg/dL (70-100); MAGNESIUM 2.1 mg/dL (1.6-2.3); POTASSIUM 4.3 mEq/L (3.5-5.2); SODIUM 135 mEq/L (134-144)
[2016-07-07 04:25] LABS: PLATELET ESTIMATE DECREASED (ADEQ)
[2016-07-07] MEDS: D5W IV SCH (06:40)
[2016-07-07] MEDS: ACYCLOVIR IV SCH (06:40)
[2016-07-07] MEDS: HYDROCODONE/APAP 5/325 TAB PO PRN ×2 (08:12→16:31)
[2016-07-07] MEDS: GABAPENTIN 300 MG CAP PO SCH ×2 (08:19→20:38)
[2016-07-07] MEDS: NYSTATIN SUSP 500000 UNIT/5 ML UDCUP PO SCH ×2 (08:19→20:39)
[2016-07-07] MEDS: DEXAMETHASONE 4 MG/ML VIAL IVP SCH ×2 (08:19→20:39)
[2016-07-07] MEDS: MUPIROCIN 2% 22 GM OINT TP SCH (08:20)
[2016-07-07] MEDS: FLUCONAZOLE/NaCl 100 ML IV SCH (08:26)
--- NOTE | 2016-07-07 11:19 | HOSPPROG ---
Hospitalist Progress Note Assessment/Plan: Acute respiratory failure - CXR shows persistent b/l infiltrates, personally reviewed and interpreted. ?PNA vs element of HF vs chemo induced pneumonitis. O2 requirement down to 25 from 30 LPM this am on vapotherm. BNP still elevated though could be some strain related to pulm process. +diastolic dysfunction on echo. Discussed case with Pulm and ID. -cont dexamethasone 4 mg IV BID -diurese as tolerated -bipap prn, wean O2 as able -atbx tailored to vanc per ID -ID, pulm following Neutropenic fever - neutropenia resolved, afebrile x24 hrs. ?drug fever. On Vanc as above, plus Acyclovir given +HSV and Fluconazole for bora. -changing Acyclovir and Fluconazole to po per ID CoNS / staph epi bacteremia likely from PORT with chest wall wound - Rpt BCx's ngtd. Completing 2 weeks atbx per ID Metastatic ovarian cancer - On Doxil, last dose 06/06, significant toxicities present including mucositis, possible pneumonitis. Pancytopenia - likely secondary to chemo, improving. Follow. Oral mucositis / candidiasis - likely secondary to chemo, +HSV, cont Acyclovir. Cont Fluconazole. Appreciate GI consult. EGD deferred for now given compromised respiratory status. If her odynophagia persists, can reconsider scope if/when respiratory status improved. H/O DVT - pharmacy dosing coumadin, sub-therapeutic INR today. Sacral pressure injury - wound care DVT PPLX - Lovenox, watch plts closely Limited resuscitation - no compressions, intubation ok. Consider palliative care consult. Dispo - cont inpt / ICU Subjective: PT feels a bit better today. No CP or SOB at rest, but has BEAL and desats with activity. No fevers for >24 hrs. Still c/o odynophagia Objective: Vital Signs Temp Pulse Resp BP Pulse Ox 36.4 C 85 24 H 92/52 L 98 07/07/16 07:38 07/07/16 08:40 07/07/16 08:40 07/07/16 07:38 07/07/16 08:40 Laboratory Results 07/07/16 03:00 07/07/16 03:00 07/06/16 07/07/16 07/08/16 05:59 05:59 05:59 Intake Total 2857 8681 Output Total 1651 700 Balance 457 1248 PT 20.8 SEC (12.0-15.0) H 07/07/16 03:00 INR 1.78 (0.83-1.16) H 07/07/16 03:00 ICD10 Worksheet Patient Problems: Problems Problem Status Onset Fever and neutropenia Acute
--- NOTE | 2016-07-07 13:19 | PCMIDPN ---
Assessment/Plan: #Hypoxia, diffuse infiltrates, O2 requirements stable. Neg ID w/u: all BAL studies negative, neg CMV. Currently on dexamethasone for possible organizing PNA due to doxil --resp panel 06/28 neg, but can be neg due to sampling error - will repeat today. --off broad spec antimicrobials for 2 days #Mucositis/dysphagia,HSV 1 +: on acyclovir/fluconazole: oral ulceration on exam c/w mucositis, no thrush --change to PO acyclovir --change fluconazole to PO # S. Epi bacteremia/port infection: current plan to retain port, 4 more days of IV Vancomycin, dose reduced 07/04 for Trough of 18, Cr normal today --vanco T tonight, stop date 07/09 meds fluconazole 200mg IV daily, #6 acyclovir 300mg IV q8h, #5 Vancomycin #/ meds 07/02 blood cx (2) neg 06/29 BAL negative to date 06/26 blood cx (2) negative 06/24 blood cx (2/) CoNS Subjective: patient very frustrated about lack of diagnosis c/o persistent mouth pain Objective: Vital Signs Temp Pulse Resp BP Pulse Ox 97.4 C H 68 17 99/57 L 97 07/07/16 11:38 07/07/16 11:38 07/07/16 11:38 07/07/16 11:38 07/07/16 11:38 Laboratory Results 07/07/16 03:00 07/07/16 03:00 07/06/16 07/07/16 07/08/16 05:59 05:59 05:59 Intake Total 2108 1948 Output Total 1651 700 125 Balance 457 1248 -125 - Physical Exam General Appearance: alert, non-toxic EENT: other (oral ulcerations c/w mucositis), No thrush Respiratory: other (with minimal movement tachypnea), No respiratory distress, No crackles Cardiac/Chest: regular rate, rhythm Extremities: No pedal edema Abdomen: non-tender, soft Skin: pallor, No rash Neuro/Psych: no motor/sensory deficits, alert, normal mood/affect, oriented x 3 - Line/s Mediport Lines: No drainage, No erythema ICD10 Worksheet Patient Problems: Problems Problem Status Onset Fever and neutropenia Acute
--- NOTE | 2016-07-07 13:39 | SOAPPROG ---
SODE[facility] Progress Note Assessment/Plan: Assessment: Assessment/Plan: 75 yo w metastatic ovarian ca who p/w neutropenic fever and staph sepsis - mucositis - slow to improve - related to Doxil - Grade 2 - using 'magic mouthwash'. Eating a soft tortilla with cheese. - Hx of DVT - coumadin - Pancytopenia - 2/2 chemo; Hgb falling a bit, but no txn needed. Plts also low (Grade 1). No plt txn needed - Ovarian ca - metastatic, on Doxil - she has had 3 doses of Doxil (last one given on 06/09/16). CA125 was 806 after 2 doses (down slightly). CA 125 from 07/03 down to 442. This is very promising for response. Plan: - continue to follow - stomatitis still and issue - chemo is on hold for now. She will need a dose reduction when it resumes. - use 'magic mouthwash' before each meal 07/07/16 13:36 Subjective: Mouth still sore. Objective: Vital Signs Temp Pulse Resp BP Pulse Ox 97.4 C H 68 17 99/57 L 97 07/07/16 11:38 07/07/16 11:38 07/07/16 11:38 07/07/16 11:38 07/07/16 11:38 Laboratory Results 07/07/16 03:00 07/07/16 03:00 07/05/16 07/06/16 07/07/16 23:59 23:59 23:59 Intake Total 2313 1665 928 Output Total 1625 1076 125 Balance 688 589 803 PT 20.8 SEC (12.0-15.0) H 07/07/16 03:00 INR 1.78 (0.83-1.16) H 07/07/16 03:00 Physical Exam - Physical Exam General Appearance: alert, mild distress EENT: other (Grade 2 stomatitis) Cardiac/Chest: regular rate, rhythm Skin: pallor ICD10 Worksheet Patient Problems: Problems Problem Status Onset Fever and neutropenia Acute
--- NOTE | 2016-07-07 14:14 | PDINTPN ---
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 She grew S. epi from blood cultures and has been getting antibiotics, with the presumed source from her infusiport. Part of her treatment has also been IVF and she developed a worsening oxygen requirement and significant infiltrates on CXR. She was treated with diuretics with good UOP, but her CXR and O2 requirement failed to respond. She underwent BAL 06/29 to rule out opportunistic pathogens, and all cultures have been negative to date. She was transferred to the floor where she remained stable, but devloped tachycardia to the 130's 07/02 so was transferred back to the ICU. She was reportedly more somnolent and confused with increased RR as well. On arrival in the ICU her HR was 115 and oxygen saturation 100% on 2 lpm. She readily recognized me and denied discomfort. * Tahcycardia- Improved. * PNA- O2 requirements up in the last 24 hours at same time as fever, tachycardia. CXR much worse. BNP up and I>O. No longer neutropenic. No role for repeat bronchoscopy. Remains on Vanco, fluconazole, and acyclovir.? Organizing pneumonia due to Doxil? * Pleural effusions: Likely related to effusion and fluid resuscitation. Minimal on CXR. * Mucositis: Has prevented PO. Improving, patient able to take PO, but still quite minimal * Bacteremia- S. Epi. Abx include Fluconazole, Acyclovir, Vanco. * Hx DVT on Coumadin. INR Low but climbing * Anemia: Hgb down today. * Thrombocytopenia: Low but stable today. Plan:Diet as tolerated. Continue antibiotics. Repeat Lasix. Wean down oxygen as tolerated. Started steroids for possible pulmonary drug toxicity. Increase activity. Follow Hgb, Plt, CXR. Hold off on EGD. Continue to monitor in SDU. 07/07/16 14:15 Subjective: Feels about the same. Dyspneic with minimal activity. Mouth still sore, appetite fair. Able to drink, not eating much. Objective: Vital Signs Temp Pulse Resp BP Pulse Ox 97.4 C H 68 17 99/57 L 97 07/07/16 11:38 07/07/16 11:38 07/07/16 11:38 07/07/16 11:38 07/07/16 11:38 Laboratory Results 07/07/16 03:00 07/07/16 03:00 07/06/16 07/07/16 07/08/16 05:59 05:59 05:59 Intake Total 7535 9298 Output Total 1651 700 125 Balance 457 1248 -125 PT 20.8 SEC (12.0-15.0) H 07/07/16 03:00 INR 1.78 (0.83-1.16) H 07/07/16 03:00 Physical Exam - Physical Exam General Appearance: alert, no apparent distress EENT: pharynx normal Neck: normal inspection Respiratory: crackles Cardiac/Chest: regular rate, rhythm, No edema Abdomen: normal bowel sounds, non-tender Skin: normal color, warm/dry Extremities: normal inspection Neuro/Psych: alert, normal mood/affect, oriented x 3 ICD10 Worksheet Patient Problems: Problems Problem Status Onset Fever and neutropenia Acute
[2016-07-07] MEDS ORDERED: FUROSEMIDE 20 MG/2 ML VIAL IVP ONE (14:15)
[2016-07-07] MEDS: ACYCLOVIR 200 MG CAP PO SCH ×2 (14:43→20:39)
[2016-07-07 18:38] LABS: RESPPCR RESULT SEE COMMENTS
[2016-07-07] MEDS: VANCOMYCIN HCL/NORMAL SALINE 250 ML IV SCH (20:39)
[2016-07-07] MEDS: MIRTAZAPINE 15 MG TAB PO SCH (20:39)
[2016-07-07 20:59] LABS: POTASSIUM 3.8 mEq/L (3.5-5.2)
[2016-07-07] MEDS ORDERED: WARFARIN SODIUM 2.5 MG TAB PO SCH (21:00)
[2016-07-08 05:18] LABS: HEMATOCRIT 28.5 % (38.0-47.0); HEMOGLOBIN 9.5 g/dL (12.6-16.3); MEAN CELL HEMOGLOBIN 32.1 pg (27.9-34.1); MEAN CELL HEMOGLOBIN CONCENTR. 33.3 g/dL (32.4-36.7); MEAN CELL VOLUME 96.3 fL (81.5-99.8); RED BLOOD CELL COUNT 2.96 10^6/uL (4.18-5.33); RED CELL DISTRIBUTION WIDTH 19.5 % (11.5-15.2)
[2016-07-08] MEDS: ACYCLOVIR 200 MG CAP PO SCH ×3 (05:23→20:06)
[2016-07-08 05:29] LABS: ANION GAP 5 mEq/L (8-16); CALCIUM 8.2 mg/dL (8.5-10.4); CARBON DIOXIDE 31 mEq/l (22-31); CHLORIDE 101 mEq/L (97-110); CREATININE 0.5 mg/dL (0.6-1.0); GLOMERULAR FILTRATION RATE > 60; GLUCOSE 179 mg/dL (70-100); SODIUM 137 mEq/L (134-144)
[2016-07-08 05:39] LABS: INR 2.37 (0.83-1.16); PROTIME(PATIENT) 26.1 SEC (12.0-15.0)
--- NOTE | 2016-07-08 08:23 | HOSPPROG ---
Hospitalist Progress Note Assessment/Plan: Acute respiratory failure - CXR shows persistent b/l infiltrates, personally reviewed and interpreted. ?PNA vs element of HF vs chemo induced pneumonitis. O2 requirement down to 25 from 30 LPM, on vapotherm. BNP still elevated though could be some strain related to pulm process. +diastolic dysfunction on echo. Discussed case with Pulm and ID. -change DXM to q6h solumedrol per onc -defer diuresis today given rise in BUN -cont vapotherm, bipap prn, wean O2 as able -ID, onc, pulm following Neutropenic fever - neutropenia resolved, afebrile x48 hrs -cont po Acyclovir, Fluconazole, Vanc CoNS / staph epi bacteremia likely from PORT with chest wall wound - Rpt BCx's ngtd. Completing 2 weeks atbx per ID Metastatic ovarian cancer - On Doxil, last dose 06/06, significant toxicities present including mucositis, possible pneumonitis. Pancytopenia - likely secondary to chemo, improving. Follow. Oral mucositis / candidiasis - likely secondary to chemo, +HSV, cont Acyclovir. Cont Fluconazole. Appreciate GI consult. EGD deferred for now given compromised respiratory status. If her odynophagia persists, can reconsider scope if/when respiratory status improved. H/O DVT - pharmacy dosing coumadin, INR therapeutic Sacral pressure injury - wound care DVT PPLX - therapeutic INR Limited resuscitation - no compressions, intubation ok. Consider palliative care consult. Dispo - cont inpt / ICU Subjective: Pt feels about the same. Desats with any activity. No fevers. Eating better today. Objective: Vital Signs Temp Pulse Resp BP Pulse Ox 36.6 C 64 16 104/53 L 94 07/08/16 04:00 07/08/16 04:50 07/08/16 04:00 07/08/16 04:00 07/08/16 04:50 Laboratory Results 07/08/16 05:00 07/08/16 05:00 07/07/16 07/08/16 07/09/16 05:59 05:59 05:59 Intake Total 1948 800 Output Total 700 125 Balance 1248 675 PT 26.1 SEC (12.0-15.0) H 07/08/16 05:00 INR 2.37 (0.83-1.16) H 07/08/16 05:00 - Physical Exam Constitutional: chronically ill appearing Eyes: PERRL Ears, Nose, Mouth, Throat: moist mucous membranes Cardiovascular: regular rate and rhythym Respiratory: no respiratory distress, clear to auscultation Gastrointestinal: normoactive bowel sounds, soft, non-tender abdomen Skin: warm Musculoskeletal: full muscle strength Neurologic: AAOx3 Psychiatric: interacting appropriately ICD10 Worksheet Patient Problems: Problems Problem Status Onset Fever and neutropenia Acute
[2016-07-08] MEDS ORDERED: FLUCONAZOLE 40 MG/1 ML 35 ML BOTTLE PO SCH (09:00)
[2016-07-08] MEDS: DEXAMETHASONE 4 MG/ML VIAL IVP SCH (09:11)
[2016-07-08] MEDS: NYSTATIN SUSP 500000 UNIT/5 ML UDCUP PO SCH ×2 (09:11→20:04)
[2016-07-08] MEDS: GABAPENTIN 300 MG CAP PO SCH ×2 (09:12→20:04)
[2016-07-08] MEDS: FLUCONAZOLE 100 MG TAB PO SCH (09:12)
[2016-07-08] MEDS ORDERED: SODIUM CL NASAL 45 ML BTL EACHNARE PRN (09:29)
[2016-07-08] MEDS: MUPIROCIN 2% 22 GM OINT TP SCH (10:04)
--- NOTE | 2016-07-08 10:09 | PCMIDPN ---
Assessment/Plan: #Hypoxia, diffuse infiltrates, O2 requirements imporved. Neg ID w/u: all BAL studies negative, neg CMV. Currently on dexamethasone for possible organizing PNA due to doxil. Slight improvement today --off broad spec antimicrobials for 3 days --depending on duration of steroids may have to prophylax for Pneumocystis #Mucositis/dysphagia,HSV 1 +: on acyclovir/fluconazole: oral ulceration on exam c/w mucositis, no thrush --cont PO acyclovir, flucon x 10 days # S. Epi bacteremia/port infection: current plan to retain port, 4 more days of IV Vancomycin, dose reduced 07/04 for Trough of 18, Cr normal today --vanco T 12.8 okay, stop date 07/09 meds fluconazole 200mg PO daily, #7 acyclovir 200mg PO TID, #6 Vancomycin #13/14 meds 07/02 blood cx (2) neg 06/29 BAL negative to date 06/26 blood cx (2) negative 06/24 blood cx (2/2) CoNS Discussed with DR. Hopkins and DR. Hillman Subjective: Patient reports feeling slightly improved today. Primary complaint is nasal congestion. Oral pain is still present but better Objective: Vital Signs Temp Pulse Resp BP Pulse Ox 36.3 C 66 17 112/50 L 98 07/08/16 08:00 07/08/16 08:00 07/08/16 08:00 07/08/16 08:00 07/08/16 08:00 Microbiology 07/02/16 14:10 Blood Culture - Final Blood 07/02/16 14:25 Blood Culture - Final Blood Laboratory Results 07/08/16 05:00 07/08/16 05:00 07/07/16 07/08/16 07/09/16 05:59 05:59 05:59 Intake Total 1948 800 Output Total 700 125 Balance 1248 675 - Physical Exam General Appearance: alert, no apparent distress EENT: other (Oral ulcerations consistent with mucositis), No scleral icterus Respiratory: other (Poor inspiratory effort with occasional scattered crackles in the bases), No accessory muscle use Neck: supple Cardiac/Chest: regular rate, rhythm Extremities: No pedal edema Abdomen: non-tender, soft Skin: No rash Neuro/Psych: alert, normal mood/affect, oriented x 3 - Line/s Mediport Lines: No drainage, No erythema ICD10 Worksheet Patient Problems: Problems Problem Status Onset Fever and neutropenia Acute
[2016-07-08 10:32] LABS: CALCIUM 8.3 mg/dL (8.5-10.4); MAGNESIUM 2.2 mg/dL (1.6-2.3)
[2016-07-08 11:36] LABS: IONIZED CALCIUM 1.15 MMOL/L (1.12-1.30)
--- NOTE | 2016-07-08 14:12 | SOAPPROG ---
SOAP Progress Note Assessment/Plan: Assessment: Assessment/Plan: 75 yo w metastatic ovarian ca who p/w neutropenic fever and staph sepsis - mucositis - slow to improve - related to Doxil - Grade 2 - using 'magic mouthwash'. Eating a soft tortilla with cheese. - Hx of DVT - coumadin - Pancytopenia - 2/2 chemo; Hgb falling a bit, but no txn needed. Plts also low (Grade 1). No plt txn needed - Ovarian ca - metastatic, on Doxil - she has had 3 doses of Doxil (last one given on 06/09/16). CA125 was 806 after 2 doses (down slightly). CA 125 from 07/03 down to 442. This is very promising for response. - biggest issue is hypoxemia, pulmonary infiltrates, some concern this could be a pneumonitis related to chemo and i agree this is a possibility although rare Plan: - continue to follow - stomatitis still and issue - chemo is on hold for now. She will need a dose reduction when it resumes. - d/c dex, solumedrol 60 mg ivp every 12 hours 07/08/16 14:09 07/08/16 14:09 Subjective: SOB Objective: Vital Signs Temp Pulse Resp BP Pulse Ox 98.8 F 76 19 101/59 L 100 07/08/16 12:00 07/08/16 12:00 07/08/16 12:00 07/08/16 12:00 07/08/16 12:00 Microbiology 07/07/16 20:50 Respiratory Panel (PCR) - Final Nasal, Sinus - Swab No Organism Detected 07/02/16 14:10 Blood Culture - Final Blood 07/02/16 14:25 Blood Culture - Final Blood Laboratory Results 07/08/16 05:00 07/08/16 05:00 07/07/16 07/08/16 07/09/16 05:59 05:59 05:59 Intake Total 1948 800 Output Total 700 125 Balance 1248 675 PT 26.1 SEC (12.0-15.0) H 07/08/16 05:00 INR 2.37 (0.83-1.16) H 07/08/16 05:00 Physical Exam - Physical Exam General Appearance: mild distress Respiratory: decreased breath sounds Cardiac/Chest: regular rate, rhythm Abdomen: normal bowel sounds, non-tender ICD10 Worksheet Patient Problems: Problems Problem Status Onset Fever and neutropenia Acute
--- NOTE | 2016-07-08 15:01 | PDINTPN ---
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 She grew S. epi from blood cultures and has been getting antibiotics, with the presumed source from her infusiport. Part of her treatment has also been IVF and she developed a worsening oxygen requirement and significant infiltrates on CXR. She was treated with diuretics with good UOP, but her CXR and O2 requirement failed to respond. She underwent BAL 06/29 to rule out opportunistic pathogens, and all cultures have been negative to date. She was transferred to the floor where she remained stable, but devloped tachycardia to the 130's 07/02 so was transferred back to the ICU. She was reportedly more somnolent and confused with increased RR as well. On arrival in the ICU her HR was 115 and oxygen saturation 100% on 2 lpm. She readily recognized me and denied discomfort. * Tahcycardia- Improved. * PNA- O2 requirements down a bit in the last 24 hours, now on 50% via Vapotherm. CXR unchanged. Still has I>O, but BUN climbing a bit higher. No longer neutropenic. No role for repeat bronchoscopy. Remains on Vanco, fluconazole, and acyclovir.? Organizing pneumonia due to Doxil? * Pleural effusions: Likely related to effusion and fluid resuscitation. Minimal on CXR. * Mucositis: Has prevented PO. Improving, patient able to take PO, and appetite improved * Bacteremia- S. Epi. Abx include Fluconazole, Acyclovir, Vanco. * Hx DVT on Coumadin. INR Low but climbing * Anemia: Hgb down today. * Thrombocytopenia: Low but up today. Plan:Diet as tolerated. Continue antibiotics. Hold on Lasix today. Wean down oxygen as tolerated. Started steroids for possible pulmonary drug toxicity, agree with increased dose. Increase activity. Follow Hgb, Plt, CXR, BNP. Hold off on EGD. OK to transfer to floor. 07/08/16 15:05 Subjective: Feels a bit better, still gets dyspneic with minimal activity, but able to do a bit more. Minimal cough. Objective: Vital Signs Temp Pulse Resp BP Pulse Ox 37.1 C 76 19 101/59 L 100 07/08/16 12:00 07/08/16 12:00 07/08/16 12:00 07/08/16 12:00 07/08/16 12:00 Microbiology 07/07/16 20:50 Respiratory Panel (PCR) - Final Nasal, Sinus - Swab No Organism Detected 07/02/16 14:10 Blood Culture - Final Blood 07/02/16 14:25 Blood Culture - Final Blood Laboratory Results 07/08/16 05:00 07/08/16 05:00 07/07/16 07/08/16 07/09/16 05:59 05:59 05:59 Intake Total 1948 800 Output Total 700 125 Balance 1248 675 PT 26.1 SEC (12.0-15.0) H 07/08/16 05:00 INR 2.37 (0.83-1.16) H 07/08/16 05:00 CXR: Stable extensive infiltrates. Images reviewed. Physical Exam - Physical Exam General Appearance: alert, no apparent distress EENT: normal ENT inspection Neck: normal inspection Respiratory: crackles (bilateral), No respiratory distress Cardiac/Chest: regular rate, rhythm, No edema Abdomen: normal bowel sounds, non-tender Skin: normal color, warm/dry Extremities: non-tender Neuro/Psych: alert, normal mood/affect, oriented x 3 ICD10 Worksheet Patient Problems: Problems Problem Status Onset Fever and neutropenia Acute
[2016-07-08] MEDS ORDERED: WARFARIN SODIUM 2.5 MG TAB PO ONE (16:00)
[2016-07-08 18:28] LABS: POTASSIUM 4.2 mEq/L (3.5-5.2)
[2016-07-08] MEDS: MIRTAZAPINE 15 MG TAB PO SCH (20:04)
[2016-07-08] MEDS: methylPREDNISolone SOD SUCC 125 MG/2 ML VIAL IVP SCH (20:04)
[2016-07-08] MEDS: HYDROCODONE/APAP 5/325 TAB PO PRN (20:18)
[2016-07-08] MEDS: VANCOMYCIN HCL/NORMAL SALINE 250 ML IV SCH (21:41)
[2016-07-09] MEDS: ACYCLOVIR 200 MG CAP PO SCH ×3 (05:49→20:56)
[2016-07-09 06:38] LABS: ANION GAP 7 mEq/L (8-16); CALCIUM 8.4 mg/dL (8.5-10.4); CARBON DIOXIDE 30 mEq/l (22-31); CHLORIDE 103 mEq/L (97-110); CREATININE 0.5 mg/dL (0.6-1.0); GLOMERULAR FILTRATION RATE > 60; GLUCOSE 138 mg/dL (70-100); MAGNESIUM 2.2 mg/dL (1.6-2.3); POTASSIUM 4.6 mEq/L (3.5-5.2); SODIUM 140 mEq/L (134-144)
[2016-07-09] MEDS: methylPREDNISolone SOD SUCC 125 MG/2 ML VIAL IVP SCH ×2 (09:32→20:55)
[2016-07-09] MEDS: FLUCONAZOLE 100 MG TAB PO SCH (09:32)
[2016-07-09] MEDS: NYSTATIN SUSP 500000 UNIT/5 ML UDCUP PO SCH ×2 (09:32→20:57)
[2016-07-09] MEDS: GABAPENTIN 300 MG CAP PO SCH ×2 (09:35→20:56)
[2016-07-09] MEDS: MUPIROCIN 2% 22 GM OINT TP SCH (09:36)
--- NOTE | 2016-07-09 09:43 | HOSPPROG ---
Hospitalist Progress Note Assessment/Plan: 75 yo female with h/o metastatic ovarian cancer admitted with neutropenic fever and chest wall wound with PORT who then developed respiratory failure and was transferred to the ICU. Acute respiratory failure - CXR shows persistent b/l infiltrates, personally reviewed and interpreted. ?PNA vs element of HF vs chemo induced pneumonitis. O2 requirement down to 20 from 30 LPM, on vapotherm. BNP still elevated though could be some strain related to pulm process. +diastolic dysfunction on echo. Diuresed to BUN of 41. Discussed case with Pulm and ID. -cont solumedrol 60 IV q12h -defer diuresis today given rise in BUN -cont vapotherm, bipap prn, wean O2 as able -ID, onc, pulm following Neutropenic fever - neutropenia resolved, afebrile x72 hrs -cont acyclovir, fluconazole stopped today -Vanc x14 days, last dose today MSSA bacteremia likely from PORT / chest wall wound - Rpt BCx's ngtd. Completed 2 weeks of vanc 07/09. Metastatic ovarian cancer - On Doxil, last dose 06/06, significant toxicities present including mucositis, possible pneumonitis (though rarely assd w doxil per Onc) Pancytopenia - likely secondary to chemo, improving. Follow. Oral mucositis / candidiasis - likely secondary to chemo, +HSV, cont Acyclovir thru 07/12, magic mouthwash. Fluconazole d/c'd, cont nystatin swish/swallow. Appreciate GI consult. EGD deferred for now given compromised respiratory status. If her odynophagia persists, can reconsider scope if/when respiratory status improved. H/O DVT - pharmacy dosing coumadin, INR supra-therapeutic today Sacral pressure injury - wound care DVT PPLX - therapeutic INR Limited resuscitation - no compressions, intubation ok. Consider palliative care consult. Dispo - transfer to Subjective: Pt feels better today. No CP or SOB at rest, still desats with activity but requiring less O2. No fevers for >72 hrs. Odynophagia and mouth sores improving. Taking liquids better. Objective: Vital Signs Temp Pulse Resp BP Pulse Ox 36.5 C 59 L 20 129/47 H 95 07/09/16 08:35 07/09/16 08:35 07/09/16 08:35 07/09/16 08:35 07/09/16 08:35 Microbiology 07/07/16 20:50 Respiratory Panel (PCR) - Final Nasal, Sinus - Swab No Organism Detected 07/02/16 14:10 Blood Culture - Final Blood 07/02/16 14:25 Blood Culture - Final Blood Laboratory Results 07/08/16 05:00 07/09/16 05:45 07/08/16 07/09/16 07/10/16 05:59 05:59 05:59 Intake Total 800 878 Output Total 125 550 Balance 675 328 PT 26.1 SEC (12.0-15.0) H 07/08/16 05:00 INR 2.37 (0.83-1.16) H 07/08/16 05:00 - Physical Exam Constitutional: chronically ill appearing Eyes: PERRL Ears, Nose, Mouth, Throat: moist mucous membranes, other (improved / resolved oral ulcers) Cardiovascular: regular rate and rhythym, no murmur, rub, or gallop Respiratory: no respiratory distress, clear to auscultation Gastrointestinal: normoactive bowel sounds, soft, non-tender abdomen Skin: warm Musculoskeletal: generalized weakness Neurologic: AAOx3 Psychiatric: interacting appropriately ICD10 Worksheet Patient Problems: Problems Problem Status Onset Fever and neutropenia Acute
[2016-07-09 10:24] LABS: INR 3.82 (0.83-1.16); PROTIME(PATIENT) 38.3 SEC (12.0-15.0)
--- NOTE | 2016-07-09 11:22 | PCMIDPN ---
Assessment/Plan: #Organizing PNA secondary to Doxil. Significant improvement on steroids today --depending on duration of steroids may have to prophylax for Pneumocystis #Mucositis/dysphagia,HSV 1 +: on acyclovir/fluconazole: oral ulceration on exam c/w mucositis, no thrush --cont PO acyclovir x 10 days, MAR adjusted --dc fluconazole, ok to continue nystatin s/s # S. Epi bacteremia/port infection: current plan to retain port, 4 more days of IV Vancomycin, dose reduced 07/04 for Trough of 18, Cr normal today --last day of vancomycin today. MAR adjusted CALL ID FOR ADDITIONAL QUESTIONS meds fluconazole 200mg PO daily, #8 acyclovir 200mg PO TID, #7 Vancomycin #/ meds 07/02 blood cx (2) neg 06/29 BAL negative to date 06/26 blood cx (2) negative 06/24 blood cx (2/2) CoNS Discussed with DR. Hopkins Subjective: feeling better today! Objective: Vital Signs Temp Pulse Resp BP Pulse Ox 36.5 C 59 L 20 129/47 H 95 07/09/16 08:35 07/09/16 08:35 07/09/16 08:35 07/09/16 08:35 07/09/16 08:35 Microbiology 07/07/16 20:50 Respiratory Panel (PCR) - Final Nasal, Sinus - Swab No Organism Detected 07/02/16 14:10 Blood Culture - Final Blood 07/02/16 14:25 Blood Culture - Final Blood Laboratory Results 07/08/16 05:00 07/09/16 05:45 07/08/16 07/09/16 07/10/16 05:59 05:59 05:59 Intake Total 800 878 Output Total 125 550 Balance 675 328 AF General Appearance: alert, no apparent distress EENT: Oral ulcerations consistent with mucositis, No scleral icterus Respiratory: better inspiratory effort , no crackles today, No accessory muscle use Neck: supple Cardiac/Chest: regular rate, rhythm Extremities: No pedal edema Abdomen: non-tender, soft Skin: No rash Neuro/Psych: alert, normal mood/affect, oriented x 3 Port R chest wall c/d/i ICD10 Worksheet Patient Problems: Problems Problem Status Onset Fever and neutropenia Acute
--- NOTE | 2016-07-09 12:20 | SOAPPROG ---
SOAP Progress Note Assessment/Plan: Assessment: Assessment/Plan: 75 yo w metastatic ovarian ca who p/w neutropenic fever and staph sepsis - history dvt, inr a bit high pharmacy to adjust - mucositis - slow to improve - related to Doxil - appetite better on steroids - Hx of DVT - coumadin - Pancytopenia - 2/2 chemo; stable - Ovarian ca - metastatic, on Doxil - she has had 3 doses of Doxil (last one given on 06/09/16). CA125 was 806 after 2 doses (down slightly). CA 125 from 07/03 down to 442. This is very promising for response. - biggest issue is hypoxemia, pulmonary infiltrates, some concern this could be a pneumonitis related to chemo and I agree this is a possibility although rare.She is doing better with decreased 02 requirements and increased appetite Plan: - continue to follow - stomatitis still and issue - chemo is on hold for now. She will need a dose reduction when it resumes. - continue solumedrol 60 mg ivp every 12 hours 07/08/16 14:09 07/08/16 14:09 07/09/16 12:14 07/09/16 12:22 Subjective: feels better Objective: Vital Signs Temp Pulse Resp BP Pulse Ox 97.7 F 72 21 H 112/49 L 95 07/09/16 11:59 07/09/16 11:59 07/09/16 11:59 07/09/16 11:59 07/09/16 11:59 Microbiology 07/07/16 20:50 Respiratory Panel (PCR) - Final Nasal, Sinus - Swab No Organism Detected 07/02/16 14:10 Blood Culture - Final Blood 07/02/16 14:25 Blood Culture - Final Blood Laboratory Results 07/08/16 05:00 07/09/16 05:45 07/08/16 07/09/16 07/10/16 05:59 05:59 05:59 Intake Total 800 878 Output Total 125 550 Balance 675 328 PT 38.3 SEC (12.0-15.0) H D 07/09/16 10:00 INR 3.82 (0.83-1.16) H 07/09/16 10:00 Physical Exam - Physical Exam General Appearance: alert, mild distress Respiratory: crackles Cardiac/Chest: regular rate, rhythm ICD10 Worksheet Patient Problems: Problems Problem Status Onset Fever and neutropenia Acute
--- NOTE | 2016-07-09 13:30 | PDINTPN ---
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 She grew S. epi from blood cultures and has been getting antibiotics, with the presumed source from her infusiport. Part of her treatment has also been IVF and she developed a worsening oxygen requirement and significant infiltrates on CXR. She was treated with diuretics with good UOP, but her CXR and O2 requirement failed to respond. She underwent BAL 06/29 to rule out opportunistic pathogens, and all cultures have been negative to date. She was transferred to the floor where she remained stable, but devloped tachycardia to the 130's 07/02 so was transferred back to the ICU. She was reportedly more somnolent and confused with increased RR as well. On arrival in the ICU her HR was 115 and oxygen saturation 100% on 2 lpm. She readily recognized me and denied discomfort. * Tahcycardia- Improved. * PNA- O2 requirements down a bit in the last 24 hours, now on 45% via Vapotherm. CXR unchanged. Still has I>O, but BUN climbing a bit higher. No longer neutropenic. No role for repeat bronchoscopy. Remains on Vanco, fluconazole, and acyclovir.? Organizing pneumonia due to Doxil? * Pleural effusions: Likely related to effusion and fluid resuscitation. Minimal on CXR. * Mucositis: Has prevented PO. Improving, patient able to take PO, and appetite improved * Bacteremia- S. Epi. Abx include Fluconazole, Acyclovir, Vanco. * Hx DVT on Coumadin. INR supratherapeutic * Anemia: Hgb down yesterday. * Thrombocytopenia: Low but up yesterday. Plan: Diet as tolerated. Continue antibiotics. Hold on Lasix today given increasing BUN, near-normal BNP. Wean down oxygen as tolerated. Started steroids for possible pulmonary drug toxicity, agree with increased dose. Increase activity. Follow Hgb, Plt, CXR, BNP. Hold off on EGD. OK to transfer to floor. 07/09/16 13:31 Subjective: A bit less dyspneic, but still hypoxemic with exertion. Mucositis better, able to eat with less discomfort. Objective: Vital Signs Temp Pulse Resp BP Pulse Ox 36.5 C 72 21 H 112/49 L 95 07/09/16 11:59 07/09/16 11:59 07/09/16 11:59 07/09/16 11:59 07/09/16 11:59 Microbiology 07/07/16 20:50 Respiratory Panel (PCR) - Final Nasal, Sinus - Swab No Organism Detected 07/02/16 14:10 Blood Culture - Final Blood 07/02/16 14:25 Blood Culture - Final Blood Laboratory Results 07/08/16 05:00 07/09/16 05:45 07/08/16 07/09/16 07/10/16 05:59 05:59 05:59 Intake Total 800 878 Output Total 125 550 Balance 675 328 PT 38.3 SEC (12.0-15.0) H D 07/09/16 10:00 INR 3.82 (0.83-1.16) H 07/09/16 10:00 Laboratory Tests 07/09/16 05:45 NT-Pro-B Natriuret Pep 382 Physical Exam - Physical Exam General Appearance: alert, no apparent distress EENT: normal ENT inspection Neck: normal inspection Respiratory: crackles (bases) Cardiac/Chest: regular rate, rhythm, No edema Abdomen: normal bowel sounds, non-tender, soft, No organomegaly Skin: normal color, warm/dry Extremities: non-tender Neuro/Psych: alert, normal mood/affect, oriented x 3 ICD10 Worksheet Patient Problems: Problems Problem Status Onset Fever and neutropenia Acute
[2016-07-09] MEDS: HYDROCODONE/APAP 5/325 TAB PO PRN ×2 (16:52→16:53)
[2016-07-09 18:29] LABS: POTASSIUM 4.4 mEq/L (3.5-5.2)
[2016-07-09] MEDS ORDERED: SENNOSIDES/DOCUSATE SODIUM TAB PO ONE (20:40)
[2016-07-09] MEDS: VANCOMYCIN HCL/NORMAL SALINE 250 ML IV SCH (20:54)
[2016-07-09] MEDS: MIRTAZAPINE 15 MG TAB PO SCH (20:56)
[2016-07-10] MEDS: ACYCLOVIR 200 MG CAP PO SCH ×3 (06:04→20:01)
[2016-07-10 06:24] LABS: ABSOLUTE IMMATURE GRANULOCYTES 0.19 10^3/uL (0.00-0.10); ADD DIFF? NO; ADD MORPH? NO; ADD SCAN? NO; ATYPICAL LYMPHOCYTE FLAG 0 (0-99); FRAGMENT RBC FLAG 20 (0-99); HEMATOCRIT 28.4 % (38.0-47.0); HEMOGLOBIN 9.4 g/dL (12.6-16.3); LEFT SHIFT FLG 50 (0-99); LIPEMIA HEMOLYSIS FLAG 80 (0-99); MEAN CELL HEMOGLOBIN 32.6 pg (27.9-34.1); MEAN CELL HEMOGLOBIN CONCENTR. 33.1 g/dL (32.4-36.7); MEAN CELL VOLUME 98.6 fL (81.5-99.8); MEAN PLATELET VOLUME 11.7 fL (8.7-11.7); PLATELET CLUMPS FLAG 0 (0-99); PLATELET COUNT 164 10^3/uL (150-400); RED BLOOD CELL COUNT 2.88 10^6/uL (4.18-5.33); RED CELL DISTRIBUTION WIDTH 19.1 % (11.5-15.2)
[2016-07-10 06:34] LABS: APTT 44.7 SEC (23.0-38.0); INR 4.28 (0.83-1.16); PROTIME(PATIENT) 41.9 SEC (12.0-15.0)
[2016-07-10 06:44] LABS: ALANINE AMINOTRANSFERASE 110 IU/L (9-52); ALBUMIN 2.7 g/dL (3.5-5.0); ALKALINE PHOSPHATASE 94 IU/L (38-126); ANION GAP 7 mEq/L (8-16); ASPARTATE AMINOTRANSFERASE 83 IU/L (14-46); BILIRUBIN,TOTAL 0.6 mg/dL (0.1-1.4); CALCIUM 8.6 mg/dL (8.5-10.4); CARBON DIOXIDE 29 mEq/l (22-31); CHLORIDE 102 mEq/L (97-110); CREATININE 0.5 mg/dL (0.6-1.0); GLOMERULAR FILTRATION RATE > 60; GLUCOSE 126 mg/dL (70-100); MAGNESIUM 2.2 mg/dL (1.6-2.3); POTASSIUM 4.6 mEq/L (3.5-5.2); SODIUM 138 mEq/L (134-144); TOTAL PROTEIN 4.8 g/dL (6.3-8.2)
[2016-07-10] MEDS ORDERED: SENNOSIDES/DOCUSATE SODIUM TAB PO PRN (07:29)
[2016-07-10] MEDS: GABAPENTIN 300 MG CAP PO SCH ×2 (07:57→20:02)
[2016-07-10] MEDS: methylPREDNISolone SOD SUCC 125 MG/2 ML VIAL IVP SCH ×2 (07:57→20:03)
[2016-07-10] MEDS: NYSTATIN SUSP 500000 UNIT/5 ML UDCUP PO SCH ×2 (07:58→20:04)
--- NOTE | 2016-07-10 09:05 | SOAPPROG ---
SOAP Progress Note Assessment/Plan: Assessment: 1) Metastatic ovarian cancer (s/p 3 cycles Doxil with declining tumor marker) 2) Bilateral pulmonary infiltrates (PNA versus Doxil induced pneumonitis) 3) Doxil induced mucocytis 4) H/o DVT (on warfarin) 5) Deconditioning Plan: She is improving ever since the initiation of Solumedrol which suggests Doxil pneumonitis. Will continue at current dose of 60 mg BID. She is not on active ABX therapy. Continues on Acyclovir INR elevated. Warfarin dose will be adjusted by pharmacy. Mucocytis improving . Tolerating liquid diet. Case management involved regarding Disposition. Hopefully she could be discharged prior to the end of this week. May require SNF depending on degree of improvement. She is working with PT. Further tx of her ovarian cancer per Dr. Dominguez. Plan outpatient Oncology follow up once discharged. Plan discussed with patient and grand daughter. 07/10/16 09:01 07/10/16 09:05 Subjective: Feels somewhat better. Tolerating liquid diet. Objective: Vital Signs Temp Pulse Resp BP Pulse Ox 36.5 C 54 L 12 128/71 H 94 07/09/16 20:00 07/10/16 00:00 07/10/16 00:00 07/09/16 20:00 07/10/16 00:00 Laboratory Results 07/10/16 06:05 07/10/16 06:05 07/09/16 07/10/16 07/11/16 05:59 05:59 05:59 Intake Total 878 842 Output Total 550 Balance 328 842 PT 41.9 SEC (12.0-15.0) H 07/10/16 06:05 INR 4.28 (0.83-1.16) H 07/10/16 06:05 - Time Spent With Patient Time Spent With Patient: 25 minutes Physical Exam - Physical Exam General Appearance: alert, no apparent distress EENT: PERRL/EOMI, other (Minimal remaining stomatitis. No thrush) Abdomen: non-tender, soft Skin: normal color, other (No rash) Neuro/Psych: alert, normal mood/affect ICD10 Worksheet Patient Problems: Problems Problem Status Onset Fever and neutropenia Acute
[2016-07-10] MEDS: MUPIROCIN 2% 22 GM OINT TP SCH (09:58)
--- NOTE | 2016-07-10 13:22 | HOSPPROG ---
Hospitalist Progress Note Assessment/Plan: 75 yo female with h/o metastatic ovarian cancer admitted with neutropenic fever , MSSA bacteremia and hospital course complicated by acute resp failure # acute hypoxic respiratory failure: cxr personally reviewed/interpreted showing diffuse bilateral infiltrates, multifactorial with likely organizing pneumonia 2/2 doxil as well as pneumonia and CHF exacerbation. Currently on 20LPM vapotherm. Has been on lasix but held recently for elevated BUN, continue steroids, s/p abx with vanc/fluc/acylovir. cultures have been negative. # neutropenic fever: no longer neutropenic, afebrile, s/p vanc/fluconazole but continued on acyclovir # MSSA bacteremia: source being chest wall port, s/p vanc and repeat cultures negative # acute decompensated diastolic heart failure: with normal ef of 50-55%, volume overloaded in setting of fluid resuscitation with pleural effusions on imaging as above, continue lasix prn improvement in bun # pancytopenia: 2/2 chemo, counts improving # metastatic ovarian cancer: tx with doxil and s/p toxicities including mucositis/pneumonitis; future tx to be determined by primary oncologist # dvt/pe: small, likely chronic, PE noted on CTA during this stay, continue warfarin, INR remains supratherapeutic # sacral pressure injury: wound care following # mucositis: with concurrent candidiasis and HSV +, continue acyclovir until 07/12 , magic mouthwash, s/p fluconazole, continue nystatin s/s. # limited resuscitation: no compressions # dispo: IP status Patient new to my care. Old records reviewed and summarized as above. Care plan reviewed with Dr. Whitley and multidisciplinary care team on rounds. Further hx obtained from patients granddaughter present at bedside. Subjective: no significant overnight events, patient states she is feeling better, no acute complaints, eating, has not had bm yet Objective: Vital Signs Temp Pulse Resp BP Pulse Ox 36.4 C 46 L 22 H 132/67 H 97 07/10/16 08:00 07/10/16 08:00 07/10/16 10:00 07/10/16 08:00 07/10/16 10:00 Laboratory Results 07/10/16 06:05 07/10/16 06:05 07/09/16 07/10/16 07/11/16 05:59 05:59 05:59 Intake Total 878 842 Output Total 550 Balance 328 842 PT 41.9 SEC (12.0-15.0) H 07/10/16 06:05 INR 4.28 (0.83-1.16) H 07/10/16 06:05 awake alert elderly anicteric op clear rrr no mrg cta with dec bs throughout soft nt nd trace ble edema warm dry well perfused oriented appropriate - Time Spent With Patient Time Spent with Patient: greater than 35 minutes Time Spent with Patient: Greater than 35 minutes spent on this patients care, greater than 50% of time spent counseling, educating, and coordinating care regarding the above mentioned plan. ICD10 Worksheet Patient Problems: Problems Problem Status Onset Fever and neutropenia Acute
[2016-07-10] MEDS: ACETAMINOPHEN 325 MG TAB PO PRN (13:49)
--- NOTE | 2016-07-10 13:56 | PDINTPN ---
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 She grew S. epi from blood cultures and has been getting antibiotics, with the presumed source from her infusiport. Part of her treatment has also been IVF and she developed a worsening oxygen requirement and significant infiltrates on CXR. She was treated with diuretics with good UOP, but her CXR and O2 requirement failed to respond. She underwent BAL 06/29 to rule out opportunistic pathogens, and all cultures have been negative to date. She was transferred to the floor where she remained stable, but devloped tachycardia to the 130's 07/02 so was transferred back to the ICU. * PNA/pulmonary infiltrates - O2 requirements slowly improving, on Vapotherm. CXR improving slowly. I>O, but not marked. BUN climbing, a bit higher today. No longer neutropenic. No role for repeat bronchoscopy. Remains on acyclovir. Vancomycin and Diflucan stopped. ?Organizing pneumonia due to Doxil? - on Solu- Medrol for this. * Pleural effusions: Likely related to pn and fluid resuscitation. Minimal on CXR on L. * Mucositis: Improving, patient able to take PO. Appetite improved * Bacteremia- S. Epi on admission. * Hx DVT on Coumadin. INR supratherapeutic again today * Anemia: Hct 28, stable. No evidence of active bleeding. * Thrombocytopenia: Resolved. Plan: Diet as tolerated. Continue acyclovir. Continue steroids. Follow x-ray pulmonary status closely. Increase activity. Follow CBC, laboratory, CXR, BNP. Hold Coumadin, follow INR. OK to transfer to [facility] when bed available. Discussed with patient, respiratory, hospitalist, nursing, and the ICU multi disciplinary team. 35 minutes of critical care time was spent directly with the patient. Chest x- rays reviewed. Objective: Vital Signs Temp Pulse Resp BP Pulse Ox 36.4 C 46 L 22 H 132/67 H 97 07/10/16 08:00 07/10/16 08:00 07/10/16 10:00 07/10/16 08:00 07/10/16 10:00 Laboratory Results 07/10/16 06:05 07/10/16 06:05 07/09/16 07/10/16 07/11/16 05:59 05:59 05:59 Intake Total 878 842 Output Total 550 Balance 328 842 PT 41.9 SEC (12.0-15.0) H 07/10/16 06:05 INR 4.28 (0.83-1.16) H 07/10/16 06:05 ICD10 Worksheet Patient Problems: Problems Problem Status Onset Fever and neutropenia Acute
[2016-07-10] MEDS: HYDROCODONE/APAP 5/325 TAB PO PRN (20:03)
[2016-07-10] MEDS: MIRTAZAPINE 15 MG TAB PO SCH (20:07)
[2016-07-10] MEDS: MBX SOLN 30 ML BOTTLE PO PRN (20:08)
[2016-07-11] MEDS: ACYCLOVIR 200 MG CAP PO SCH ×2 (05:42→14:16)
[2016-07-11 05:45] LABS: % IMMATURE GRANULYOCYTES 2.1 % (0.0-1.1); ABSOLUTE NRBC COUNT 0.02 10^3/uL (0-0.01); ADD DIFF? NO; ADD MORPH? NO; ADD SCAN? NO; ATYPICAL LYMPHOCYTE FLAG 0 (0-99); FRAGMENT RBC FLAG 20 (0-99); HEMATOCRIT 32.7 % (38.0-47.0); HEMOGLOBIN 10.7 g/dL (12.6-16.3); LEFT SHIFT FLG 40 (0-99); LIPEMIA HEMOLYSIS FLAG 80 (0-99); MEAN CELL HEMOGLOBIN 32.1 pg (27.9-34.1); MEAN CELL HEMOGLOBIN CONCENTR. 32.7 g/dL (32.4-36.7); MEAN CELL VOLUME 98.2 fL (81.5-99.8); MEAN PLATELET VOLUME 11.3 fL (8.7-11.7); NRBC-AUTO% 0.2 % (0.0-0.2); PLATELET CLUMPS FLAG 0 (0-99); PLATELET COUNT 216 10^3/uL (150-400); RED BLOOD CELL COUNT 3.33 10^6/uL (4.18-5.33); RED CELL DISTRIBUTION WIDTH 19.3 % (11.5-15.2)
[2016-07-11 05:59] LABS: INR 4.53 (0.83-1.16); PROTIME(PATIENT) 43.9 SEC (12.0-15.0)
[2016-07-11 06:04] LABS: ANION GAP 7 mEq/L (8-16); CALCIUM 8.9 mg/dL (8.5-10.4); CARBON DIOXIDE 29 mEq/l (22-31); CHLORIDE 103 mEq/L (97-110); CREATININE 0.6 mg/dL (0.6-1.0); GLOMERULAR FILTRATION RATE > 60; GLUCOSE 127 mg/dL (70-100); POTASSIUM 4.6 mEq/L (3.5-5.2); SODIUM 139 mEq/L (134-144)
[2016-07-11] MEDS: methylPREDNISolone SOD SUCC 125 MG/2 ML VIAL IVP SCH ×2 (09:17→19:51)
[2016-07-11] MEDS: NYSTATIN SUSP 500000 UNIT/5 ML UDCUP PO SCH ×2 (09:21→19:52)
[2016-07-11] MEDS: GABAPENTIN 300 MG CAP PO SCH ×2 (09:21→19:51)
[2016-07-11] MEDS: MUPIROCIN 2% 22 GM OINT TP SCH (12:08)
--- NOTE | 2016-07-11 12:31 | HOSPPROG ---
Hospitalist Progress Note Assessment/Plan: 75 yo female with h/o metastatic ovarian cancer admitted with neutropenic fever , MSSA bacteremia and hospital course complicated by acute resp failure # acute hypoxic respiratory failure: cxr personally reviewed/interpreted showing diffuse bilateral infiltrates, multifactorial with likely organizing pneumonia 2/2 doxil as well as pneumonia and CHF exacerbation. Currently on 2L NC with o2 sats in the high 90s. Continue steroids, s/p abx with vanc/fluc/ acylovir. # neutropenic fever: no longer neutropenic, afebrile, s/p vanc/fluconazole but continued on acyclovir # MSSA bacteremia: source being chest wall port, s/p vanc and repeat cultures negative # acute decompensated diastolic heart failure: with normal ef of 50-55%, volume overloaded in setting of fluid resuscitation with pleural effusions on imaging as above, continue lasix prn improvement in bun # pancytopenia: 2/2 chemo, counts improving # metastatic ovarian cancer: tx with doxil and s/p toxicities including mucositis/pneumonitis; future tx to be determined by primary oncologist # dvt/pe: small, likely chronic, PE noted on CTA during this stay, continue warfarin, INR remains supratherapeutic # sacral pressure injury: wound care following # mucositis: with concurrent candidiasis and HSV +, continue acyclovir until 07/12 , magic mouthwash, s/p fluconazole, continue nystatin s/s. # limited resuscitation: no compressions # dispo: IP status, likely will be ready for dc in coming 1-2 days Subjective: no significant overnight events, patient states she is feeling better again today, very fatigued after taking a shower today, has had a bit more of an appetite today Objective: Vital Signs Temp Pulse Resp BP Pulse Ox 36.4 C 63 18 128/58 H 99 07/11/16 08:00 07/11/16 08:00 07/11/16 08:00 07/11/16 08:00 07/11/16 08:00 Laboratory Results 07/11/16 05:40 07/11/16 05:40 07/10/16 07/11/16 07/12/16 05:59 05:59 05:59 Intake Total 842 650 Output Total 700 Balance 842 -50 PT 43.9 SEC (12.0-15.0) H 07/11/16 05:40 INR 4.53 (0.83-1.16) H 07/11/16 05:40 awake alert elderly anicteric op clear rrr no mrg cta with dec bs throughout soft nt nd trace ble edema warm dry well perfused oriented appropriate ICD10 Worksheet Patient Problems: Problems Problem Status Onset Fever and neutropenia Acute
--- NOTE | 2016-07-11 13:34 | SOAPPROG ---
ASHUTOSH Progress Note Assessment/Plan: Assessment: 1) Metastatic ovarian cancer (s/p 3 cycles Doxil with declining tumor marker) 2) Bilateral pulmonary infiltrates (PNA versus Doxil induced pneumonitis) 3) Doxil induced stomatitis (improved) 4) H/o DVT (on warfarin) 5) Deconditioning Plan: She is improving ever since the initiation of Solumedrol which suggests Doxil pneumonitis. Will continue at current dose of 60 mg BID. We could consider stopping this as opposed to a Prednisone taper once she goes home She is not on active ABX therapy. Continues on Acyclovir INR elevated. Warfarin dose will be adjusted by pharmacy. It has been held x 5 days (confirmed with pharmacy) Mucocytis improving . Tolerating liquid diet. Case management involved regarding Disposition. Hopefully she could be discharged prior to the end of this week. Her daughter will be living with her to give support. She is working with PT. Further tx of her ovarian cancer per Dr. Dominguez. Plan outpatient Oncology follow up once discharged. Plan discussed with patient. Subjective: Feels better. Eating regular diet. Hoping to go home soon. Objective: Vital Signs Temp Pulse Resp BP Pulse Ox 36.4 C 63 18 128/58 H 99 07/11/16 08:00 07/11/16 08:00 07/11/16 08:00 07/11/16 08:00 07/11/16 08:00 Laboratory Results 07/11/16 05:40 07/11/16 05:40 07/10/16 07/11/16 07/12/16 05:59 05:59 05:59 Intake Total 842 650 Output Total 700 Balance 842 -50 PT 43.9 SEC (12.0-15.0) H 07/11/16 05:40 INR 4.53 (0.83-1.16) H 07/11/16 05:40 - Time Spent With Patient Time Spent With Patient: 25 minutes Physical Exam - Physical Exam General Appearance: alert, no apparent distress EENT: PERRL/EOMI Respiratory: other (Decreased at Right base) Cardiac/Chest: regular rate, rhythm Abdomen: non-tender, soft Neuro/Psych: alert, normal mood/affect ICD10 Worksheet Patient Problems: Problems Problem Status Onset Fever and neutropenia Acute
[2016-07-11] MEDS: MIRTAZAPINE 15 MG TAB PO SCH (19:49)
[2016-07-11] MEDS: HYDROCODONE/APAP 5/325 TAB PO PRN (19:50)
[2016-07-12] MEDS: ACYCLOVIR 200 MG CAP PO SCH ×3 (00:56→15:13)
[2016-07-12] MEDS: NYSTATIN SUSP 500000 UNIT/5 ML UDCUP PO SCH ×2 (08:27→20:33)
[2016-07-12] MEDS: GABAPENTIN 300 MG CAP PO SCH ×2 (08:28→20:32)
[2016-07-12] MEDS: methylPREDNISolone SOD SUCC 125 MG/2 ML VIAL IVP SCH (08:28)
[2016-07-12 11:35] LABS: INR 4.89 (0.83-1.16); PROTIME(PATIENT) 46.6 SEC (12.0-15.0)
[2016-07-12] MEDS: MUPIROCIN 2% 22 GM OINT TP SCH (11:58)
[2016-07-12] MEDS: HYDROCODONE/APAP 5/325 TAB PO PRN ×2 (14:14→19:38)
--- NOTE | 2016-07-12 15:48 | SOAPPROG ---
ASHUTOSH Progress Note Assessment/Plan: Assessment: 1) Metastatic ovarian cancer (s/p 3 cycles Doxil with declining tumor marker) 2) Bilateral pulmonary infiltrates (PNA versus Doxil induced pneumonitis)-- improved on recent xray 3) Doxil induced stomatitis (improved) 4) H/o DVT (on warfarin) 5) Deconditioning Plan: She is improving ever since the initiation of Solumedrol which suggests Doxil pneumonitis. I will stop her IV steroids today and change to PO Dexamethasone 4 mg BID. This is helping with her appetite. She can be discharged on this dose of Dexamethasone. INR elevated. Warfarin dose will be adjusted by pharmacy. It has been held x 6 days. Will likely need to continue to hold at discharge. Repeat INR can be done next week at [facility]. Mucocytis improving . Tolerating liquid diet. Plan for discharge tomorrow. Her daughter will be living with her to give support. She is working with PT. Further tx of her ovarian cancer per Dr. Dominguez. Plan outpatient Oncology follow up once discharged. I will notify Dr. Dominguez of pending discharge. Plan discussed with patient. 07/12/16 15:45 Subjective: Feels well. Hoping to go home tomorrow. Appetite improving. Objective: Vital Signs Temp Pulse Resp BP Pulse Ox 36.6 C 60 18 124/62 H 99 07/12/16 15:33 07/12/16 15:33 07/12/16 15:33 07/12/16 15:33 07/12/16 15:33 Microbiology 06/29/16 14:00 Mycobacterial Smear (RICKY) - Final Lung Left Upper Lobe - Bronchial Washings 06/29/16 14:00 Mycobacterial Smear (RICKY) - Final Lung Left Upper Lobe - Bronchial Washings Laboratory Results 07/11/16 05:40 07/11/16 05:40 07/11/16 07/12/16 07/13/16 05:59 05:59 05:59 Intake Total 650 700 Output Total 700 350 400 Balance -50 350 -400 PT 46.6 SEC (12.0-15.0) H 07/12/16 11:19 INR 4.89 (0.83-1.16) H 07/12/16 11:19 - Time Spent With Patient Time Spent With Patient: 25 minutes Physical Exam - Physical Exam General Appearance: alert, no apparent distress EENT: PERRL/EOMI Respiratory: lungs clear Abdomen: non-tender, soft Neuro/Psych: alert, normal mood/affect ICD10 Worksheet Patient Problems: Problems Problem Status Onset Fever and neutropenia Acute
--- NOTE | 2016-07-12 17:01 | WOCRNPDOC ---
LOGAN Advanced Assessment Note - Skin Integrity Problem, Advanced Assess Left Chest Dressing Type: Allevyn Life Dressing Description: Clean/Dry, Intact Exudate Amount: Scant Exudate Color: Reddish/Yellow Exudate Characteristic(s): Serosanguinous Integumentary Issue Intervention: Visualized Under Dressing Kenia Wound Tissue: Scarred Kenia Wound Swelling: None Wound Bed Color: Fouke Wound Bed Constitution: Smooth Tissue Wound Edges: Epithelizing, Attached, Irregular (with slightly raw, ragged appearance at distal nipple) Site Odor: None Site Measurement - Head-to-Toe Length X Width X Depth (cm): 1 x 4 x 0.01 Skin Integrity Problem Comment: Site is improved; some rawness in appearance adjacent to nipple, otherwise is re-epithelializing. Left Buttock Blister Dressing Type: Allevyn Life Dressing Description: Clean/Dry, Intact Exudate Characteristic(s): None Integumentary Issue Intervention: Visualized Under Dressing Kenia Wound Tissue: Blanching, Intact Kenia Wound Swelling: None Wound Bed Color: Fouke, Red Wound Bed Constitution: Smooth Tissue, De-roofed Serous Blister Wound Edges: Epithelizing, Attached Site Odor: None Site Measurement - Head-to-Toe Length X Width X Depth (cm): 8 x 5 x 0.01 Pressure Injury Stage: Stage 2 Pressure Injury Present on Admit: No Skin Integrity Problem Comment: Clean, re-epithelializing; unable to locate blisters identified on 07/05, therefore apparently resolved. Patient reports that "It doesn't hurt to sit any more." Discussed recommendation to maintain dressing protection at home until healing is complete, then switch to moisture barrier cream. Left Medial Foot Dressing Type: Allevyn Life Dressing Description: Clean/Dry, Intact Exudate Amount: None Integumentary Issue Intervention: Visualized Under Dressing Kenia Wound Swelling: None Wound Bed Constitution: Healed Skin Integrity Problem Comment: Dressing remains in place for protection. Right Hip Pressure Injury Dressing Type: Allevyn Life Dressing Description: Clean/Dry, Intact Exudate Amount: None Integumentary Issue Intervention: Visualized Under Dressing Wound Bed Constitution: Healed Pressure Injury Stage: Unstageable (resolved), Gear Changer Related Pressure Injury (presumed) Pressure Injury Present on Admit: No Skin Integrity Problem Comment: Dry skin with superficial discoloration remaining at intact tissue along linear site, otherwise injury is resolved. Left Medial Knee Blister Dressing Type: Allevyn Life Dressing Description: Clean/Dry, Intact Exudate Amount: None Integumentary Issue Intervention: Visualized Under Dressing Wound Bed Constitution: Healed Site Odor: None Skin Integrity Problem Comment: Dry skin with superficial discoloration remains at intact tissue at medial knee, otherwise injury is resolved.
[2016-07-12] MEDS: MIRTAZAPINE 15 MG TAB PO SCH (20:32)
[2016-07-12] MEDS: DEXAMETHASONE 4 MG TAB PO SCH (20:33)
[2016-07-13 04:56] VITALS: O2SAT 98
[2016-07-13 06:10] LABS: INR 4.73 (0.83-1.16); PROTIME(PATIENT) 45.4 SEC (12.0-15.0)
[2016-07-13 08:33] VITALS: BP 124/60; PULSE 64; RESP 18; TEMP 98.1
--- NOTE | 2016-07-13 09:02 | SOAPPROG ---
ASHUTOSH Progress Note Assessment/Plan: Assessment: 1) Metastatic ovarian cancer (s/p 3 cycles Doxil with declining tumor marker) 2) Bilateral pulmonary infiltrates (PNA versus Doxil induced pneumonitis)-- improved on recent xray 3) Doxil induced stomatitis (improved) 4) H/o DVT (on warfarin) 5) Deconditioning Plan: She has improved ever since the initiation of steroids which suggests Doxil pneumonitis. I have stopped stop her IV steroids and changed to PO Dexamethasone 4 mg BID. This is helping with her appetite. She should be discharged on this dose of Dexamethasone. INR elevated. Warfarin has been held x 7 days. Will continue to hold at discharge. Repeat INR can be done next week at [facility]. Dr. Dominguez will reinitiate warfarin when appropriate. Mucocytis improved . Tolerating liquid diet. Plan for discharge today. Her daughter will be living with her to give support. She will go home with home O2. Further tx of her ovarian cancer per Dr. Dominguez. Plan outpatient Oncology follow up once discharged. I have notified Dr. Dominguez of pending discharge. Plan discussed with patient and Dr. Shabazz. 07/12/16 15:45 07/13/16 08:59 07/13/16 09:02 Subjective: Feels ready to go home. Objective: Vital Signs Temp Pulse Resp BP Pulse Ox 36.7 C 64 18 124/60 H 98 07/13/16 08:30 07/13/16 08:30 07/13/16 08:30 07/13/16 08:30 07/13/16 08:30 Laboratory Results 07/11/16 05:40 07/11/16 05:40 07/12/16 07/13/16 07/14/16 05:59 05:59 05:59 Intake Total 700 550 Output Total 350 1600 Balance 350 -1050 PT 45.4 SEC (12.0-15.0) H 07/13/16 05:52 INR 4.73 (0.83-1.16) H 07/13/16 05:52 - Time Spent With Patient Time Spent With Patient: 25 minutes Physical Exam - Physical Exam General Appearance: alert, no apparent distress Respiratory: lungs clear Neuro/Psych: alert, normal mood/affect ICD10 Worksheet Patient Problems: Problems Problem Status Onset Fever and neutropenia Acute
[2016-07-13] MEDS: NYSTATIN SUSP 500000 UNIT/5 ML UDCUP PO SCH (09:45)
[2016-07-13] MEDS: GABAPENTIN 300 MG CAP PO SCH (09:45)
[2016-07-13] MEDS: DEXAMETHASONE 4 MG TAB PO SCH (09:45)
[2016-07-13] MEDS: MUPIROCIN 2% 22 GM OINT TP SCH (09:50)
--- NOTE | 2016-07-13 09:55 | PDIAF ---
- Diagnosis Diagnosis: metastatic ovarian cancer Code Status: Limited Resuscitation - Medication Management Discharge Medications: Medications to Continue on Transfer Gabapentin [Neurontin 300 MG (*)] 600 mg PO DAILY 06/24/16 [Last Taken 06/24/16] Gabapentin [Neurontin 300 MG (*)] 900 mg PO HS 06/24/16 [Last Taken 06/23/16] Hydrocodone/Acetaminophen [Lortab 5-325 mg Tablet] 1 each PO Q4 PRN 06/24/16 [ Last Taken 06/23/16] MIRTAZAPINE [Remeron 7.5 mg] 7.5 mg PO HS 06/24/16 [Last Taken 06/23/16] Mupirocin Calcium [Mupirocin] 1 kerry TP DAILY 06/24/16 [Last Taken Unknown] Nystatin Susp [Mycostatin Oral Liquid] 5 ml PO BID 06/24/16 [Last Taken 14:00] Dexamethasone [Decadron 4 MG (*)] 4 mg PO BID #30 tab 07/13/16 [Last Taken Unknown] Discharge Medications: Refer to the Discharge Home Medication list for PRN reason. - Orders Services needed: Home Care, Registered Nurse, Physical Therapy, Occupational Therapy Home Care Face to Face: I certify that this patient was under my care and that I had the required [id number] encounter meeting the encounter requirements on the discharge day. My findings support the fact that the patient is homebound as defined in CMS Chapter 7 Medicare Benefits Manual 30.1.1, The condition of the patient is such that there exists a normal inability to leave home and consequently, leaving home would require a considerable and taxing effort. Diet Recommendation: no restrictions on diet - Follow Up Care Current Providers and Referrals: Kwasi Doulgas MD [Primary Care Provider] - As per Instructions
--- NOTE | 2016-07-13 12:17 | GDS ---
[f rep st] DISCHARGE SUMMARY DISCHARGE DIAGNOSES: 1. Metastatic ovarian cancer. 2. Neutropenic fever. 3. Acute hypoxic respiratory failure. 4. Diffuse pulmonary infiltrates, possibly pneumonitis secondary to chemotherapy. 5. Small pulmonary embolism with history of deep venous thrombosis. 6. Left chest wall wound. 7. Staphylococcus epidermidis bacteremia. 8. Oral mucositis. 9. Pancytopenia. 10. Coagulopathy. HOSPITAL COURSE: 1. A 75-year-old female with a history of metastatic ovarian cancer status post chemotherapy, prese nting with neutropenic fever and then developing acute hypoxic respiratory failure. The patient janelle calvo presented with a neutropenic fever, but then had worsening respiratory status in the ICU. Th is is probably multifactorial, including possible organizing pneumonia secondary to Doxil versus a b acterial pneumonia and CHF exacerbation. She was status post antibiotics with vancomycin, fluconazo le, acyclovir. She improved over time and now is only requiring 1 L of oxygen. She will be dischar ged on oxygen. 2. Methicillin-sensitive Staphylococcus aureus bacteremia. The patient completed a course of IV an tibiotics. 3. Acute diastolic heart failure. The patient was volume overloaded, and Lasix did help her respir atory status. 4. DVT and small pulmonary embolism. This is probably chronic. She was on warfarin, but then her INR has remained supratherapeutic in the 4's. Plan will be to continue off warfarin and to follow u p with her oncologist early next week for repeat INR. DISPOSITION: Home with home health. DISCHARGE MEDICATIONS: She is to resume all her home medications, except for Coumadin. She will al so be given Decadron 4 mg twice daily to treat possible lung reaction to Doxil. She will follow up with her oncologist early next week. TIME SPENT: Greater than 30 minutes was spent in discharge. /[id number]/MODL
== END 2016-07-13 14:02 | disposition home health service (06) | DRG 808 ==
LOC: F1N 22:03 → F2N 06-27 16:56 → F1N 06-30 16:20 → F2N 07-02 11:10 → F1N 07-10 14:31
PROVIDERS: ADMIT Internal Medicine; ATTEND Internal Medicine
PROC: 0B948ZX Drainage of Right Upper Lobe Bronchus, Via Natural or Artificial Opening Endoscopic, Diagnostic (ICD-10-PCS; principal; 2016-06-29 13:15)
DX: D70.8 Other neutropenia (principal); J18.9 Pneumonia, unspecified organism; J96.01 Acute respiratory failure with hypoxia; T80.212A Local infection due to central venous catheter, initial encounter; R78.81 Bacteremia; B95.61 Methicillin susceptible Staphylococcus aureus infection as the cause of diseases classified elsewhere; D61.818 Other pancytopenia; I50.31 Acute diastolic (congestive) heart failure; L89.152 Pressure ulcer of sacral region, stage 2; B37.0 Candidal stomatitis; I26.99 Other pulmonary embolism without acute cor pulmonale; K12.31 Oral mucositis (ulcerative) due to antineoplastic therapy; T45.1X5A Adverse effect of antineoplastic and immunosuppressive drugs, initial encounter; E46 Unspecified protein-calorie malnutrition; C56.9 Malignant neoplasm of unspecified ovary; C79.81 Secondary malignant neoplasm of breast; Z86.718 Personal history of other venous thrombosis and embolism; Z79.01 Long term (current) use of anticoagulants; Z66 Do not resuscitate
CPT/HCPCS: 86304-90; 87449-90; 87496-90; 87497-90; 87529-90; 96365; 97110-GP; 97116-GP; 97161-GP; 97166-GO; 97530-GO; 97530-GP; 97535-GO; G8978-GP-CI; G8978-GP-CJ; G8979-GP-CI; G8987-GO-CJ; G8987-GO-CK; G8988-GO-CI; J0133; J0171; J0456; J0610; J0692; J1450; J1642; J1650; J1815; J2185; J2250; J3010; J3370; P9016; P9047; Q5101-ZA; Q9967

== ENCOUNTER → 2016-07-21 | Outpatient (CLI) | payer OTHER | LOC: FIMAGING 14:41 | PROVIDERS: ATTEND Internal Medicine Hematology & Oncology | DX: I82.411 Acute embolism and thrombosis of right femoral vein (principal) ==